=== PATIENT | female | born 1975 | race Caucasian/White ===

== ENCOUNTER 2017-11-28 08:04 | Day surgery (SDC) | payer OTHER, SELFPAY ==
[2017-11-14 13:02] VITALS: BMI 33.6
[2017-11-28] VITALS (9 sets, daily range): BP systolic 94–148; BP diastolic 2–91; PULSE 82–110; RESP 10–18; TEMP 36.2–37.2; O2SAT 94–99; BMI 33.6
[2017-11-28] MEDS: LACTATED RINGERS 1,000 ML 42 ML IV ×2 (08:49→11:13)
[2017-11-28] MEDS: MIDAZOLAM 2 MG/2 ML VIAL IV (09:22)
[2017-11-28] MEDS: fentaNYL 100 MCG/2 ML INJ 50 MCG IV (09:22)
[2017-11-28] MEDS: CEFAZOLIN VIAL 1 GM in SODIUM CHLORIDE 0.9% 100 ML 200 ML IV (09:35)
--- NOTE | 2017-11-28 09:37 | PM.PREOP ---
Pre-operative Note Interval Note Pre-op Check: Yes History & Physical Reviewed by Physician and Yes Exam Performed Changes: No
--- NOTE | 2017-11-28 09:38 | SUR.PREOP ---
Block start time []0925 . Monitoring initiated and maintained throughout procedure. Oxygen and medications given per anesthesiologist instructions. Patient remained stable throughout procedure, no adverse reactions noted. Block end time []0929 .
--- NOTE | 2017-11-28 09:46 | SUR.PREOP ---
100 mcg total given of fentanyl per verbal order dr. Gaston
--- NOTE | 2017-11-28 10:14 | SUR.OPER ---
Lateral on padded OR bed with french bag positioner, head on pillow, gel axillary roll in place, bottom leg bent with gel pad under knee to foot, upper leg straight and supported with pillows. Operative arm secured in shoulder positioning suspension device. non-operative arm secured on padded arm board. Safety belt at hip, tape over blanket securing lower legs.
[2017-11-28] MEDS: BUPIVACAINE 0.5% W/ EPI (PF) VIAL 30 ML INJ (10:30)
[2017-11-28] MEDS: SODIUM CHLORIDE IRRIG SOLUTION 6,000 ML, EPINEPHrine 2 MG IRR (10:34)
--- NOTE | 2017-11-28 11:05 | P.OP_ITS ---
Operative Date/Time/Diagnoses Date of procedure: 11/28/17 Time of procedure: 10:45 Pre-op diagnosis: 1. Right shoulder acromioclavicular osteoarthritis 2. Right shoulder impingement syndrome Post-op diagnosis: other (1. Right shoulder acromioclavicular osteoarthritis 2. Right shoulder partial-thickness rotator cuff tear) Procedure & Clinicians Procedure: 1. Right shoulder arthroscopic distal clavicle excision 2. Right shoulder arthroscopic subacromial decompression 3. Arthroscopic debridement of type 1 slap lesion and partial thickness rotator cuff tear of the supraspinatus Same procedure as scheduled: Yes Indications: Patient is a 42-year-old woman who has had right shoulder pain that has not fully responded to nonoperative measures. After discussion the risks benefits and alternatives she has requested shoulder arthroscopy. Risks discussed included but were not limited to: Failure to relieve pain, failure to improve function, stiffness, infection, nerve damage, deep venous thrombosis , pulmonary embolism, stroke, myocardial infarction, permanent paralysis and . Surgeon: Jasson Clifford Click Yes if Unassisted: Yes Anesthesia Type: General, Peripheral nerve block and Local Operative Notes Findings: 1. Normal glenohumeral cartilage 2. Fraying of the glenoid labrum in the superior aspect without loss of biceps integrity, consistent with a ?type 1 SLAP lesion?. 3. Intact glenohumeral ligaments but mild generalized laxity of the shoulder joint 4. Intact subscapularis 5. Intact biceps tendon 6. Fraying of the articular surface of the supraspinatus measuring less than 2 mm in depth. This was debrided. 7. Intact infraspinatus 8. Normal axillary pouch 9. Rotator cuff normal in appearance in the bursa 10. Type 2 acromion with impingement lesion 11. Osteoarthritic change of the acromioclavicular joint 12. Exam under anesthesia showing full range of motion and no evidence for significant pathologic laxity. Closure Type: primary Specimen(s): none sent Implants & Drains: None Estimated Blood Loss (mL): 10 Blood products transfused: none Tourniquet time (min): 0 Procedure in detail: Patient is seen in the preoperative area where she identified the right shoulder as the operative site was marked my initials. She underwent the induction of an interscalene block and received preoperative antibiotics. She was taken to the operating room and placed on the operating room table in a supine position where she underwent induction with general anesthetic. She was then repositioned in the left lateral decubitus position with an axillary roll and padding for all pressure points. The right arm was prepared from the fingertips to the base and neck with ChloraPrep in the usual fashion and draped through sterile drapes. The patient's arm was placed in 10 lb of balanced skin suspension and the subcutaneous landmarks outlined on the skin with a marking pen. Portal sites were selected. The posterior portal was created and the arthroscope inserted into the glenohumeral joint. Diagnostic arthroscopy ensued with result given above. An anterior portal was created for instrumentation and a shaver inserted to debride the type 1 SLAP lesion and the undersurface rotator cuff tear of the supraspinatus. The arthroscope was then withdrawn and placed in the subacromial bursa through the posterior portal and a lateral portal was created for instrumentation. A subacromial decompression was performed using the cutting block technique due to the impingement lesion. The distal 8-10 mm of clavicle was then excised due to the arthritis there. At this point all arthroscopic equipment was removed. The wounds were closed with 4 0 Monocryl and Steri-Strips. A total of 20 mL 0.5% Marcaine with epinephrine was injected in the subacromial tissues in the subacromial bursa for postoperative pain control. Dressing sterile 4x4s, an ABD and an adhesive dressing were applied. The patient was placed in a sling and taken to the recovery room in good condition and tolerated the procedure well. Complications: none Condition: stable Disposition: PACU Plan for aftercare: The patient will be discharged today. She will follow up in the office in 2 weeks. She will be maintained on a standard arthroscopic subacromial decompression protocol.
[2017-11-28] MEDS: METOCLOPRAMIDE 10 MG/2 ML INJ IV (11:20)
[2017-11-28] MEDS: ONDANSETRON 4 MG/2 ML INJ IV (11:20)
--- NOTE | 2017-11-28 11:26 | SUR.PHASEI ---
pt c/o nausea, medicated, symptoms resolved, taking ice chips well. no pain in r shoulder, c/o sore throat.
--- NOTE | 2017-11-28 11:40 | SUR.PHASEI ---
incontinent of urine, cleaned new sheets placed. to opd stable.
--- NOTE | 2017-11-28 12:03 | SUR.PHASEII ---
pt brought to opd, bed low, locked call hood in reach, did not want anything to eat, drinking water, filling prescriptions.
--- NOTE | 2017-11-28 12:07 | SUR.PHASEII ---
report to juan francisco altamirano.
--- NOTE | 2017-11-28 12:40 | SUR.PHASEII ---
pt reported scratchy throat, offered ice chips, pt declined. Pt c/o numb upper lip, denied difficulty breathing or throat swelling.
--- NOTE | 2017-11-28 12:47 | SUR.PHASEII ---
Dr. Gaston notified about patient's numb lip. Ok for patient to d/c.
== END 2017-11-28 12:47 | disposition home or self-care (01) ==
PROVIDERS: Family Provider Physician Assistant; PCP Physician Assistant; Visit Provider Orthopaedic Surgery
PROC: (CPT 29805; principal; 2017-11-28 09:45)
DX: M19.011 Primary osteoarthritis, right shoulder (principal); M75.41 Impingement syndrome of right shoulder; S43.431A Superior glenoid labrum lesion of right shoulder, initial encounter; W23.0XXA Caught, crushed, jammed, or pinched between moving objects, initial encounter; S46.011A Strain of muscle(s) and tendon(s) of the rotator cuff of right shoulder, initial encounter
CPT/HCPCS: 29823; 29824; 29826; 64450; J0171; J0330; J0690; J1100; J2250; J2405; J2704; J2765; J3010

== ENCOUNTER → 2018-03-24 10:16 | Outpatient (CLI) | payer OTHER, SELFPAY ==
--- NOTE | 2018-03-24 | DI.US.S_ITS ---
ULTRASOUND OF LEFT BREAST: 03/24/2018 CLINICAL: Patient returns today to evaluate a density in the left breast. Comparison is made to exams dated: 08/19/2017 ultrasound, 03/24/2018 mammogram, 08/19/2017 mammogram, and 08/04/2017 mammogram - [facility]. Color flow ultrasound of the left breast was performed on the areas of interest. Baptiste scale images of the real-time examination were reviewed. There is a benign lymph node in the left breast at 12 o'clock. This correlates as an incidental finding. IMPRESSION: PROBABLY BENIGN The lymph node in the left breast is benign. There is no abnormality seen in the left breast to correspond with the mammography finding in the upper outer quadrant. A follow-up mammogram in 6 months is recommended to demonstrate stability. This exam was interpreted at Station ID: [id number]. SUMMARY: This was discussed with the patient by the radiologist at the time of the exam. Electronically Signed By: Iveth keene/jaquelin:03/24/2018 12:19:13 letter sent: Followup Recommended Ultrasound BI-RADS: 3 Probably benign
--- NOTE | 2018-03-24 | DI.MG.S_ITS ---
UNILATERAL LEFT DIGITAL DIAGNOSTIC MAMMOGRAM 3D/2D: 03/24/2018 CLINICAL: Patient returns for a 6 month follow up of the left breast. Family history of breast cancer. Tugging sensation in left breast. Comparison is made to exams dated: 08/19/2017 mammogram and 08/04/2017 mammogram - [facility]. There are scattered fibroglandular elements in left breast. There is a focal asymmetry in the left breast at 1 o'clock posterior depth. No other significant masses or calcifications are seen in the breast. IMPRESSION: INCOMPLETE: NEEDS ADDITIONAL IMAGING EVALUATION The focal asymmetry in the left breast resembles a post-surgical scar and is indeterminate. An ultrasound is recommended. This exam was interpreted at Station ID: [id number]. NOTE: For mammograms, a report in lay terms will be sent to the patient. Approximately 15% of breast malignancies will not be visualized mammographically. In the management of a palpable breast mass, a negative mammogram must not discourage biopsy of a clinically suspicious lesion. Electronically Signed By: Iveth keene/jaquelin:03/24/2018 11:08:42 letter sent: Additional Imaging Needed ACR BI-RADS Category 0: Incomplete [id number]
== END ==
PROVIDERS: PCP Physician Assistant; Visit Provider Physician Assistant
DX: R92.8 Other abnormal and inconclusive findings on diagnostic imaging of breast (principal); Z80.3 Family history of malignant neoplasm of breast; N64.89 Other specified disorders of breast
CPT/HCPCS: 76642; 77065; G0279

== ENCOUNTER → 2018-06-27 15:13 | Outpatient (CLI) | payer OTHER, SELFPAY ==
[2018-06-27 15:47] LABS: Add Manual Diff / Slide Review NO; Basophils Absolute Auto 100 /uL (0-100); Basophils Percent Auto 1.2 % (0-2); Eosinophils Absolute Auto 200 /uL (0-450); Eosinophils Percent Auto 2.9 % (2-4); Hematocrit 44.1 % (36-46); Hemoglobin 15.4 g/dL (12.0-16.0); Lymphocytes Absolute Auto 1800 /uL (1100-4500); Lymphocytes Percent Auto 31.5 % (25-40); Mean Corpuscular Hemoglobin 30.3 PG (26-34); Mean Corpuscular Volume 86.7 fL (80-100); Monocytes Absolute Auto 500 /uL (0-900); Neutrophils Absolute Auto 3200 /uL (1500-7000); Neutrophils Percent Auto 56.4 % (50-75); Platelet Count 224 X10^3/uL (150-400); Red Blood Cell Count 5.09 X10^6/uL (4.0-5.2); Red Cell Distribution Width 13.2 % (11.6-14.8); White Blood Cell Count 5.7 X10^3/uL (4.5-11.0)
[2018-06-27 15:50] LABS: Alanine Aminotransferase 27 IU/L (9-52); Albumin 4.9 g/dL (3.5-5.0); Albumin Globulin Ratio 1.7 (1.0-2.8); Alkaline Phosphatase 44 U/L (38-126); Aspartate Aminotransferase 19 IU/L (14-36); Bilirubin Total 0.3 mg/dL (0.2-1.3); Blood Urea Nitrogen 12 mg/dL (7-17); Calcium 9.4 mg/dL (8.4-10.2); Carbon Dioxide 23 mmol/L (22-32); Chloride 104 mmol/L (98-107); Cholesterol 278 mg/dL (140-199); Estimated Glomerular Filt Rate > 60.0 mL/min (>60); Globulin 2.9 g/dL (1.7-4.1); Glucose 102 mg/dL (70-100); HDL Cholesterol 41 mg/dL (40-60); HEMOLYSIS 29 (0-50); LDL Cholesterol Calculated 185 mg/dL (<100); Potassium 4.2 mmol/L (3.4-5.1); Sodium 139 mmol/L (137-145); Total Protein 7.8 g/dL (6.3-8.2); Triglycerides 260 mg/dL (35-150)
[2018-06-27 16:06] LABS: Free T4, Direct Thyroxine 0.78 ng/dL (0.78-2.19)
== END ==
LOC: LAB 15:14
PROVIDERS: PCP Physician Assistant; Visit Provider Physician Assistant
DX: I10 Essential (primary) hypertension (principal); E78.5 Hyperlipidemia, unspecified; R00.2 Palpitations
CPT/HCPCS: 36415; 80053; 80061; 84439; 84443; 85025

== ENCOUNTER → 2018-12-18 12:28 | Outpatient (CLI) | payer OTHER, SELFPAY ==
--- NOTE | 2018-12-18 | DI.MG.S_ITS ---
BILATERAL DIGITAL DIAGNOSTIC MAMMOGRAM 3D/2D SHORT-TERM FOLLOW-UP: 12/18/2018 CLINICAL: Patient returns for a 6 month follow up of the left breast. Due for bilateral imaging. Comparison is made to exams dated: 03/24/2018 mammogram, 08/19/2017 mammogram, and 08/04/2017 mammogram - [facility]. There are scattered fibroglandular elements in both breasts. There is an oval equal density focal asymmetry with an indistinct margin in the left breast at 1 o'clock posterior depth. This is not significantly changed. No other significant masses, calcifications, or other findings are seen in either breast. IMPRESSION: PROBABLY BENIGN The oval equal density focal asymmetry in the left breast is probably benign. A follow-up mammogram in 12 months is recommended. This exam was interpreted at Station ID: [id number]. NOTE: For mammograms, a report in lay terms will be sent to the patient. Approximately 15% of breast malignancies will not be visualized mammographically. In the management of a palpable breast mass, a negative mammogram must not discourage biopsy of a clinically suspicious lesion. Electronically Signed By: Jack hernandez/jaquelin:12/20/2018 07:32:08 letter sent: Followup Recommended ACR BI-RADS Category 3: Probably benign [id number]
--- NOTE | 2018-12-18 | DI.US.S_ITS ---
PROCEDURE: US PELVIC COMPLETE INDICATIONS: 6 MONTH FOLLOW UP POLYCYSTIC OVARIAN SYNDROME TECHNIQUE: Real-time scanning was performed of the pelvic organs, with image documentation. Additional endovaginal scanning was necessary due to incomplete visualization of the adnexal and endometrial structures by transabdominal scanning. COMPARISON: [facility], US, PELVIC COMPLETE, 11/13/2014, 11:21. FINDINGS: Transabdominal scanning: Limited scanning through the kidneys shows no hydronephrosis. No pathologic free abdominal or pelvic fluid. Endovaginal scanning: Uterus: Uterus is normal in size at 8.2 x 4.0 x 4.9 cm. The endometrium measures 4.2 mm in combined thickness. The myometrium is mildly heterogeneous. No definitive fibroids seen. Ovaries: Ovaries are normal in size measuring 3.9 x 2.3 x 2.0 cm on the right and 4.2 x 2.3 x 2.4 cm on the left. Bilateral simple, unilocular cyst present measuring up to 1.7 cm on the right and 2.1 cm and the left. IMPRESSION: Small bilateral simple ovarian cysts. Dictated by: Arias Lorenzana [facility] Interpreted: King Barakat MD on 12/18/2018 at 14:23 Approved by: King Barakat M.D. on 12/18/2018 at 17:21
[2018-12-18 15:57] LABS: Add Manual Diff / Slide Review NO; Basophils Absolute Auto 0 /uL (0-100); Basophils Percent Auto 0.3 % (0-2); Eosinophils Absolute Auto 200 /uL (0-450); Eosinophils Percent Auto 2.1 % (2-4); Hematocrit 42.8 % (36-46); Hemoglobin 15.2 g/dL (12.0-16.0); Lymphocytes Absolute Auto 1900 /uL (1100-4500); Lymphocytes Percent Auto 26.2 % (25-40); Mean Corpuscular HGB Conc 35.5 % (30-36); Mean Corpuscular Hemoglobin 30.7 PG (26-34); Mean Corpuscular Volume 86.4 fL (80-100); Monocytes Absolute Auto 500 /uL (0-900); Monocytes Percent Auto 6.5 % (3-14); Neutrophils Absolute Auto 4700 /uL (1500-7000); Neutrophils Percent Auto 64.9 % (50-75); Platelet Count 250 X10^3/uL (150-400); Red Blood Cell Count 4.96 X10^6/uL (4.0-5.2); Red Cell Distribution Width 13.1 % (11.6-14.8); White Blood Cell Count 7.3 X10^3/uL (4.5-11.0)
[2018-12-18 16:00] LABS: Hemoglobin A1C% w Est Avg Glu 4.8 % (4.0-6.0)
[2018-12-18 16:08] LABS: HEMOLYSIS < 15 (0-50); Iron 111 ug/dL (37-170)
[2018-12-18 16:09] LABS: Glucose 1 Hour 219 mg/dL (70-170)
[2018-12-18 16:19] LABS: Percent Iron Saturation 29 % (15-50); Total Iron Binding Capacity 384 ug/dL (265-497); Transferrin 311 mg/dL (206-381)
[2018-12-18 16:27] LABS: Prolactin 28.4 ng/mL (3.0-18.6)
[2018-12-18 16:28] LABS: Free T4, Direct Thyroxine 0.78 ng/dL (0.78-2.19)
[2018-12-18 16:39] LABS: Glucose Tol Interpretation INTERPRETATION
[2018-12-18 16:41] LABS: Thyroid Stimulating Hormone 1.84 uIU/mL (0.47-4.68)
[2018-12-18 16:43] LABS: Testosterone 28.8 ng/dL (5.71-77.0)
[2018-12-18 16:55] LABS: Follicle Stimulating Hormone 3.99 mIU/mL
[2018-12-18 17:34] LABS: Glucose 2 Hour 124 mg/dL (70-140)
[2018-12-18 18:37] LABS: Glucose Fasting 71 mg/dL (70-100)
== END ==
PROVIDERS: Family Provider Obstetrics & Gynecology; PCP Physician Assistant; Visit Provider Physician Assistant
DX: R10.30 Lower abdominal pain, unspecified (principal); N92.0 Excessive and frequent menstruation with regular cycle; R92.2 Inconclusive mammogram; Z80.3 Family history of malignant neoplasm of breast; Z84.81 Family history of carrier of genetic disease; N83.292 Other ovarian cyst, left side; N83.291 Other ovarian cyst, right side
CPT/HCPCS: 36415; 76830; 76856; 77066; 82951; 82952; 83001; 83036; 83540; 83550; 84146; 84403; 84439; 84443; 85025; G0279

== ENCOUNTER → 2018-12-22 12:55 | Outpatient (CLI) | payer OTHER, SELFPAY ==
--- NOTE | 2018-12-22 | DI.RAD.S_ITS ---
PROCEDURE: XR ABDOMEN 1V INDICATIONS: Pelvic and perineal pain TECHNIQUE: One view of the abdomen acquired. COMPARISON: None. FINDINGS: Surgical changes and devices: None. Bowel: Bowel gas pattern is normal. Mild stool. Soft tissues: No suspicious abdominal calcifications. Visualized solid organ contours appear normal in size. Incidental IUD. Bones: No suspicious bony lesions. Mild bilateral hip degeneration. Lower lumbar spondylosis and facet disease. IMPRESSION: No acute process. Additional chronic and incidental findings as above. Dictated by: King Barakat M.D. on 12/22/2018 at 17:01 Approved by: King Barakat M.D. on 12/22/2018 at 17:02
--- NOTE | 2018-12-22 | DI.RAD.S_ITS ---
PROCEDURE: XR PELVIS 1-2V INDICATIONS: Pelvic and perineal pain TECHNIQUE: Single view(s) of the pelvis acquired. COMPARISON: [facility], , PELVIS 1 OR 2 VIEWS, 01/02/2013, 11:54. FINDINGS: Bones: No fractures or dislocations. No suspicious bony lesions. Mild bilateral hip joint degeneration. Soft tissues: Visualized bowel gas pattern is normal. Incidentally noted IUD. Bilateral pelvic phleboliths. No suspicious soft tissue calcifications. IMPRESSION: No fracture. Chronic and degenerative changes as above. Dictated by: King Barakat M.D. on 12/22/2018 at 17:02 Approved by: King Barakat M.D. on 12/22/2018 at 17:03
== END ==
LOC: RAD 12:57
PROVIDERS: Family Provider Obstetrics & Gynecology; PCP Physician Assistant; Visit Provider Obstetrics & Gynecology
DX: R10.2 Pelvic and perineal pain (principal)
CPT/HCPCS: 72170; 74018

== ENCOUNTER → 2019-04-10 12:01 | Outpatient (CLI) | payer SELFPAY ==
--- NOTE | 2019-04-10 | DI.US.S_ITS ---
PROCEDURE: US ABDOMEN LIMITED INDICATIONS: RUQ PAIN TECHNIQUE: Real-time focused scanning was performed of the abdomen, with image documentation. COMPARISON: [facility], US, PELVIC COMPLETE, 11/13/2014, 11:21. FINDINGS: Liver is diffusely increased in echogenicity. No focal hepatic abnormalities identified. Normal hepatic size. No gallstones identified. Normal gallbladder wall. No pericholecystic fluid. Negative sonographic Spicer sign. No biliary dilatation. IMPRESSION: 1. Increased hepatic echogenicity noted possibly related to hepatic steatosis but other sources of hepatocellular disease cannot be excluded. Recommend clinical correlation. 2. No source for right upper quadrant pain identified. Dictated by: Arias HANKINS Interpreted: Stephanie Jacobs MD on 04/10/2019 at 14:37 Approved by: Stephanie Jacobs M.D. on 04/10/2019 at 15:47
[2019-04-10 12:59] LABS: Add Manual Diff / Slide Review NO; Basophils Absolute Auto 0 /uL (0-100); Basophils Percent Auto 0.6 % (0-2); Eosinophils Absolute Auto 100 /uL (0-450); Eosinophils Percent Auto 2.3 % (2-4); Hematocrit 41.8 % (36-46); Hemoglobin 14.7 g/dL (12.0-16.0); Lymphocytes Absolute Auto 1900 /uL (1100-4500); Mean Corpuscular HGB Conc 35.2 % (30-36); Mean Corpuscular Hemoglobin 30.2 PG (26-34); Monocytes Absolute Auto 500 /uL (0-900); Monocytes Percent Auto 7.9 % (3-14); Neutrophils Absolute Auto 3500 /uL (1500-7000); Neutrophils Percent Auto 58.2 % (50-75); Platelet Count 228 X10^3/uL (150-400); Red Blood Cell Count 4.86 X10^6/uL (4.0-5.2); Red Cell Distribution Width 13.3 % (11.6-14.8); White Blood Cell Count 6.1 X10^3/uL (4.5-11.0)
[2019-04-10 13:00] LABS: HEMOLYSIS < 15 (0-50)
[2019-04-10 13:06] LABS: Alanine Aminotransferase 23 IU/L (<35); Albumin 4.5 g/dL (3.5-5.0); Albumin Globulin Ratio 1.6 (1.0-2.8); Alkaline Phosphatase 47 U/L (38-126); Amylase 69 U/L (30-110); Aspartate Aminotransferase 21 IU/L (14-36); BUN Creatinine Ratio 16.7 (6-22); Bilirubin Total 0.4 mg/dL (0.2-1.3); Blood Urea Nitrogen 10 mg/dL (7-17); Calcium 9.2 mg/dL (8.4-10.2); Carbon Dioxide 26 mmol/L (22-32); Chloride 105 mmol/L (98-107); Estimated Glomerular Filt Rate > 60.0 mL/min (>60); Globulin 2.9 g/dL (1.7-4.1); Glucose 99 mg/dL (70-100); Lipase 71 U/L (23-300); Potassium 4.4 mmol/L (3.4-5.1); Sodium 139 mmol/L (137-145); Total Protein 7.4 g/dL (6.3-8.2)
[2019-04-10 13:38] LABS: Cancer Antigen 125 6 U/mL (0-35)
== END ==
PROVIDERS: Family Provider Obstetrics & Gynecology; PCP Physician Assistant; Visit Provider Physician Assistant
DX: R10.11 Right upper quadrant pain (principal); R39.9 Unspecified symptoms and signs involving the genitourinary system; R11.0 Nausea; R14.0 Abdominal distension (gaseous)
CPT/HCPCS: 36415; 76705; 80053; 82150; 83690; 85025; 86304; 87086

== ENCOUNTER 2019-09-09 13:44 | Emergency (ER) | payer OTHER, SELFPAY ==
[2019-09-09 13:54] VITALS: BP 201/101; PULSE 125; RESP 16; TEMP 36.8; O2SAT 97; BMI 34.9
--- NOTE | 2019-09-09 14:21 | DI.RAD.S_ITS ---
PROCEDURE: XR CLAVICLE LT INDICATIONS: R clavicle pain TECHNIQUE: 2 views of the clavicle were acquired. COMPARISON: [facility], CR, XR SHOULDER LT MIN 2V, 09/09/2019, 14:23. FINDINGS: Bones: No fractures or dislocations. No suspicious bony lesions. Soft tissues: No suspicious soft tissue calcifications. Calcific tendinitis is noted. IMPRESSION: No visualized acute fracture or dislocation. However, if clinical concern and/or pain persist, short interval imaging followup in 7-10 days is recommended, as occult injury cannot be definitively excluded. Dictated by: Stephanie Jacobs M.D. on 09/09/2019 at 14:41 Approved by: Stephanie Jacobs M.D. on 09/09/2019 at 14:41
--- NOTE | 2019-09-09 14:24 | ED.FALL ---
HPI - Fall <Diane AdamesSUNSHINE - Last Filed: 09/09/19 22:05> General Chief Complaint: Fall Stated Complaint: fell 2wks ago/left arm/neck pain today Time Seen by Provider: 09/09/19 13:59 History of Present Illness HPI Narrative: 43-year-old female with a history of multiple pinched nerves back and cerebrovascular construction, presents emergency department complaining of left shoulder tightness, spasms, and pain that extends into her neck. She states 2 week ago she slipped and fell landing on the back side of her upper back and shoulder. She states the pain was resolving but then returned the past few days. She states it feels like her muscles are tight, patient reports the pain is worse with movement of her shoulder in states it is painful to rotate her head to the left due to the muscle tension ?. Patient reports the pain occasionally radiates down her arm. She states the pain ?feel sharp like a pinched nerve ?. Patient took a Vicodin this morning. She states she occasionally feels nauseated and vomits with extensive movement or or palpation of the area due to pain. Patient has not seen anyone for this at this time. She denies any abdominal pain, fevers, chills, cough, chest pain, dizziness, headaches, vision changes, diarrhea, or any other concerns. Related Data Home Medications Medication Instructions Recorded Confirmed hydrocodone-acetaminophen [Vicodin] 1 tab PO Q4HP PRN #0 01/18/16 11/28/17 atorvastatin [Lipitor] 20 mg PO QDAY #0 02/04/16 11/28/17 epinephrine [EpiPen] 0.3 mg IM PRN PRN 11/14/17 11/14/17 fluoxetine 40 mg PO DAILY 11/14/17 11/28/17 verapamil 180 mg PO BEDTIME 11/14/17 11/28/17 Previous Rx's Medication Instructions Recorded hydroxyzine pamoate 25 mg PO Q4HR PRN #40 cap 11/28/17 oxycodone 5 mg PO Q3HR PRN #40 tab 11/28/17 cyclobenzaprine 10 mg PO TID PRN #20 tab 09/09/19 Allergies Allergy/AdvReac Type Severity Reaction Status Date / Time amoxicillin [AMOXICILLIN] Allergy Severe HIVES Verified 11/28/17 11:06 NSAIDS (Non-Steroidal Allergy Severe cerebral Verified 11/14/17 13:25 Anti-Inflamma vasoconstrictive syndrome rizatriptan [From Maxalt] Allergy Severe cerebral Verified 11/14/17 13:25 vasoconstrive syndrome Sulfa (Sulfonamide Allergy Severe HIVES Verified 11/28/17 11:06 Antibiotics) [SULFA (SULFONAMIDE ANTIBIOTICS)] tree nut Allergy Severe Anaphylaxis Verified 11/14/17 13:25 walnut Allergy Severe Anaphylaxis Verified 11/14/17 13:25 hydromorphone [From Dilaudid] AdvReac Severe Vomiting Verified 11/14/17 13:25 Review of Systems <SUNSHINE Morales - Last Filed: 09/09/19 22:05> Review of Systems Narrative: REVIEW OF SYSTEMS: GENERAL: Denies fever or chills. HENT: No head trauma. EYES: No double vision or vision loss. CARDIOVASCULAR: No chest pain. RESPIRATORY: No cough. GASTROINTESTINAL: No nausea, vomiting, diarrhea, or constipation. MUSCULOSKELETAL: Complains of left-sided neck pain, see HPI. INTEGUMENTARY: No rash, lesions, or pruritus. NEURO: No numbness, tingling. PSYCH: No behavior or mood changes. Patient History <SUNSHINE Morales - Last Filed: 09/09/19 22:05> Medical History Anisocoria (Acute) Chronic thoracic spine pain (Acute) Depression (Acute) Hirsutism (Acute) Migraine with aura (Acute) MRSA (methicillin resistant Staphylococcus aureus) (Acute) Numbness of right hand (Acute) Osteoarthritis (Acute) PCOS (polycystic ovarian syndrome) (Acute) Reversible cerebrovascular vasoconstriction syndrome (Acute) Right shoulder pain (Acute) Surgical History Status post breast reduction Status post knee surgery Social History household members: spouse and children Smoking Status: Unknown if ever smoked Smoking Status: Unknown if ever smoked Substance Use Type: does not use Exam <SUNSHINE Morales - Last Filed: 09/09/19 22:05> Initial Vital Signs Initial Vital Signs: Vital Signs Temperature 98.3 F 09/09/19 13:54 Pulse Rate 125 H 09/09/19 13:54 Respiratory Rate 16 09/09/19 13:54 Blood Pressure 201/101 H 09/09/19 13:54 Pulse Oximetry 97 09/09/19 13:54 PHYSICAL EXAMINATION: GENERAL: Well groomed, alert, and cooperative. Answers questions promptly and appropriately. Vital signs noted. HENT: Normocephalic, atraumatic. EYES: Symmetrical, sclera white, no periorbital swelling. CARDIOVASCULAR: S1 and S2 sounds normal. Regular rate and rhythm, no murmurs, clicks, or bruits. No pedal edema. RESPIRATORY: Normal respiratory rate, trachea midline, airway patent. No stridor, nasal flaring or accessory muscle use. Lungs are clear in all mello. MUSCULOSKELETAL: Tenderness to palpation of sternocleidomastoid approximately the middle of muscle, significant tenderness to left-sided trapezius muscle, no tenderness to shoulder joint. Some spur final vertebral tenderness to left side of cervical spine. Patient has limited leftward rotation due to neck stiffness and pain. Upper arm, title checker, and shoulder strength equal but laterally. EXTREMITIES: CMS intact. No pedal edema. SKIN: Warm, dry, soft, appropriate color for ethnicity. No lesions, rashes, or wounds. NEURO: Alert and Oriented X 3. No sensory deficits. PSYCH: Appropriate affect and mood. <Leonardo Rodríguez MD - Last Filed: 09/10/19 19:34> Initial Vital Signs Initial Vital Signs: Vital Signs Temperature 98.3 F 09/09/19 13:54 Pulse Rate 125 H 09/09/19 13:54 Respiratory Rate 16 09/09/19 13:54 Blood Pressure 201/101 H 09/09/19 13:54 Pulse Oximetry 97 09/09/19 13:54 Course <SUNSHINE Morales - Last Filed: 09/09/19 22:05> Course Course Narrative: 1526: Patient re-evaluated, continues to complain of significant pain. Discussed cervical spine imaging due to fall. Patient was agreeable. Patient reported some improved pain after application of lidocaine patch. Orders Ordered: Discontinued Medications Diazepam (Valium) 5 mg PO NOW ONE Stop: 09/09/19 14:22 Last Admin: 09/09/19 14:51 Dose: 5 mg Documented by: ERICK Diazepam (Valium) 5 mg PO NOW ONE Stop: 09/09/19 15:21 Last Admin: 09/09/19 15:34 Dose: 5 mg Documented by: SCANAPO Lidocaine (Lidoderm) 1 each TOP NOW ONE Stop: 09/09/19 16:00 Last Admin: 09/09/19 16:03 Dose: 1 each Documented by: SCANAPO Consultations Consultation #1: Patient staffed with Dr. Rodríguez discussed patient's symptoms, mechanism of injury, tests, and test results. Discussed need for CT cervical imaging due to mechanism of injury and fall. Vital Signs Vital signs: Vital Signs - 8 hr 09/09/19 15:36 Pulse Rate 97 H Respiratory Rate 16 Blood Pressure [Right Arm] 156/97 H Pulse Oximetry 100 <Leonardo Rodríguez MD - Last Filed: 09/10/19 19:34> Orders Ordered: Discontinued Medications Diazepam (Valium) 5 mg PO NOW ONE Stop: 09/09/19 14:22 Last Admin: 09/09/19 14:51 Dose: 5 mg Documented by: IBISAPO Diazepam (Valium) 5 mg PO NOW ONE Stop: 09/09/19 15:21 Last Admin: 09/09/19 15:34 Dose: 5 mg Documented by: SCANAPO Lidocaine (Lidoderm) 1 each TOP NOW ONE Stop: 09/09/19 16:00 Last Admin: 09/09/19 16:03 Dose: 1 each Documented by: ERICK Vital Signs Vital signs: Vital Signs - 8 hr 09/09/19 15:36 Pulse Rate 97 H Respiratory Rate 16 Blood Pressure [Right Arm] 156/97 H Pulse Oximetry 100 MDM - Fall <SUNSHINE Morales - Last Filed: 09/09/19 22:05> Medical Records Attestation: I reviewed the patient's medical records. Lab Data Attestation: I reviewed the patient's lab results. Imaging Data Extremity x-ray #1: Radiologist's Impression: [address] [place] [id number] XRay Report Signed Patient: Nelson Spicer [facility]#: [id number] : 1975Acct:[id number] Age/Sex: 43 / FDate of Service: 09/09/19 Loc: ED Accession Number: [id number] Procedure: XR shoulder LT min 2V Ordering Provider: Diane Adames PROCEDURE: XR SHOULDER LT MIN 2V INDICATIONS: FAll, pain TECHNIQUE: 2 views of the shoulder were acquired. COMPARISON: [facility], XR CLAVICLE LT, 09/09/2019, 14:23. [facility], SHOULDER MINIMUM 2VIEW RIGHT, 08/29/2017, 10:18. FINDINGS: Bones: No fractures or dislocations. No suspicious bony lesions. Visualized ribs appear intact. Soft tissues: No suspicious soft tissue calcifications. Calcific tendinitis. IMPRESSION: No visualized acute fracture or dislocation. However, if clinical concern and/or pain persist, short interval imaging followup in 7-10 days is recommended, as occult injury cannot be definitively excluded. Dictated by: Stephanie Jacobs M.D. on 09/09/2019 at 14:41 Approved by: Stephanie Jacobs M.D. on 09/09/2019 at 14:42 Extremity x-ray #2: Radiologist's Impression: [address] [address] XRay Report Signed Patient: Nelson Spicer [facility]#: [id number] : 1975Acct:[id number] Age/Sex: 43 / FDate of Service: 09/09/19 Loc: ED Accession Number: [id number] Procedure: XR clavicle LT Ordering Provider: Diane Adames PROCEDURE: XR CLAVICLE LT INDICATIONS: R clavicle pain TECHNIQUE: 2 views of the clavicle were acquired. COMPARISON: [facility], , XR SHOULDER LT MIN 2V, 09/09/2019, 14:23. FINDINGS: Bones: No fractures or dislocations. No suspicious bony lesions. Soft tissues: No suspicious soft tissue calcifications. Calcific tendinitis is noted. IMPRESSION: No visualized acute fracture or dislocation. However, if clinical concern and/or pain persist, short interval imaging followup in 7-10 days is recommended, as occult injury cannot be definitively excluded. Dictated by: Stephanie Jacobs M.D. on 09/09/2019 at 14:41 Approved by: Stephanie Jacobs M.D. on 09/09/2019 at 14:[address]: Radiologist's Impression: [address] [address] [address] Scan Report Signed Patient: Bob Spicerveronica [facility]#: [id number] : 1975Acct:[id number] Age/Sex: 43 / FDate of Service: 09/09/19 Loc: ED Accession Number: [id number] Procedure: CT cervical spine wo con Ordering Provider: Diane Adames PROCEDURE: CT CERVICAL SPINE WO CON INDICATIONS: Neck pain post fall TECHNIQUE: Noncontrast 3 mm thick sections acquired from the skull base to the T4 level. Sagittal and coronal reformats were then constructed. For radiation dose reduction, the following was used: automated exposure control, adjustment of mA and/or kV according to patient size. COMPARISON: [facility], CT, HEAD WITHOUT CONTRAST, 07/05/2014, 12:48. [facility], CR, XR CLAVICLE LT, 09/09/2019, 14:23. [facility], CR, XR SHOULDER LT MIN 2V, 09/09/2019, 14:23. FINDINGS: Image quality: Excellent. Bones: No fractures or dislocations. Visualized superior ribs are intact. Mild to moderate generalized degenerative changes are seen. Soft tissues: Prevertebral soft tissues are normal in thickness. No paravertebral hematomas. No apical pneumothoraces. IMPRESSION: Negative for fracture. Dictated by: Pierre Bingham M.D. on 09/09/2019 at 15:02 Approved by: Pierre Bingham M.D. on 09/09/2019 at 15:04 [facility] Narrative Medical decision making narrative: 43-year-old female with a history of back and neck pain in the past, presents emergency department complaining of worsening left-sided pain after fall. I suspect patient's pain is most likely due to neck strain and spasm due to nature of pain, location of pain, and characteristic of pain. Less likely fracture due to lack of bony tenderness, cervical spine CT, clavicle and shoulder x-ray negative. Is possible that muscle spasms may also be contributing to patient's pain. Patient did report some improved pain after administration of lidocaine which is reassuring. Patient had slight decrease in pain after administration of Valium. Initial diagnosis include pinched nerve verses DDD. Less likely spinal compromise due to lack of neurological symptoms such as arm weakness or numbness or tingling. Less likely infection due to lack of other symptoms such as fever, tachycardia, recent illness. Patient was encouraged to follow up with her primary care provider to discuss further testing in interventions such as physical therapy. She agreed to plan of care verbalized understanding. Return precautions given. Discharge Plan Departure Patient Disposition: Home Clinical Impression: Neck pain, Muscle spasms of neck Discharge Date/Time: 09/09/19 17:01 Instructions: DI for Neck Pain Activity Restrictions/Additional Instructions: Thank you for entrusting me with your care today. As discussed, your CT and x-rays are negative for any fractures. I suspect your symptoms are most likely caused by a muscle strain and spasm. I suggest performing gentle stretches, massage, hot showers, lidocaine patches, and alternating placing ice over the area. I prescribed you a muscle relaxer, these medications can make you drowsy so do not drive when you take these. Please follow up with your primary care provider as soon as possible to discuss possible physical therapy and/or further treatment if indicated. I have placed the name of the Orthopedics office below, sometimes a referral from a primary care provider is needed in order to seen orthopedic. However, symptoms your insurance does not require this. Try calling [facility] at [phone] for an appointment. Return emergency department for any new or worsening symptoms such as chest pain, fevers, shortness of breath, vision changes, severe headaches, or any other concerns. Prescriptions: New cyclobenzaprine 10 mg tablet 10 mg PO TID PRN (Reason: muscle spasm) Qty: 20 RF: 0 No Action hydrocodone-acetaminophen [Vicodin] 5 MG/300 MG tablet 1 tab PO Q4HP PRN (Reason: PAIN) Qty: 0 RF: 0 atorvastatin [Lipitor] 20 MG tablet 20 mg PO QDAY Qty: 0 RF: 0 fluoxetine 40 mg Capsule 40 mg PO DAILY RF: 0 verapamil 180 mg Capsule,Ext Rel. Pellets 24 Hr 180 mg PO BEDTIME RF: 0 epinephrine [EpiPen] 0.3 mg/0.3 mL Auto-Injector 0.3 mg IM PRN PRN (Reason: Anaphylaxis) RF: 0 oxycodone 5 mg Tablet 5 mg PO Q3HR PRN (Reason: Pain, Moderate) Qty: 40 RF: 0 hydroxyzine pamoate 25 mg Capsule 25 mg PO Q4HR PRN (Reason: Muscle Spasm) Qty: 40 RF: 0 Referrals: Stephanie Truong PA-C [Primary Care Provider] -
[2019-09-09] MEDS: diazePAM 5 MG TABLET PO ×2 (14:51→15:34)
--- NOTE | 2019-09-09 15:20 | DI.CT.S_ITS ---
PROCEDURE: CT CERVICAL SPINE WO CON INDICATIONS: Neck pain post fall TECHNIQUE: Noncontrast 3 mm thick sections acquired from the skull base to the T4 level. Sagittal and coronal reformats were then constructed. For radiation dose reduction, the following was used: automated exposure control, adjustment of mA and/or kV according to patient size. COMPARISON: [facility], CT, HEAD WITHOUT CONTRAST, 07/05/2014, 12:48. [facility], CR, XR CLAVICLE LT, 09/09/2019, 14:23. [facility], CR, XR SHOULDER LT MIN 2V, 09/09/2019, 14:23. FINDINGS: Image quality: Excellent. Bones: No fractures or dislocations. Visualized superior ribs are intact. Mild to moderate generalized degenerative changes are seen. Soft tissues: Prevertebral soft tissues are normal in thickness. No paravertebral hematomas. No apical pneumothoraces. IMPRESSION: Negative for fracture. Dictated by: Pierre Bingham M.D. on 09/09/2019 at 15:02 Approved by: Pierre Bingham M.D. on 09/09/2019 at 15:04
[2019-09-09 15:36] VITALS: BP 156/97; PULSE 97; RESP 16; O2SAT 100
[2019-09-09] MEDS: LIDOCAINE PATCH 1 EACH ADH..PATCH TOP (16:03)
== END 2019-09-09 17:01 | disposition home or self-care (01) ==
PROVIDERS: Emergency Provider Nurse Practitioner; Family Provider Obstetrics & Gynecology; PCP Physician Assistant
DX: M54.2 Cervicalgia (principal); M62.838 Other muscle spasm; M25.512 Pain in left shoulder; W19.XXXA Unspecified fall, initial encounter
CPT/HCPCS: 72125; 73000; 73030; 99283; 99284

== ENCOUNTER 2019-09-11 10:24 | Emergency (ER) | payer OTHER, SELFPAY ==
[2019-09-11 10:32] VITALS: BP 195/98; PULSE 118; RESP 13; TEMP 36.6; O2SAT 98
--- NOTE | 2019-09-11 11:42 | DI.MRI.S_ITS ---
PROCEDURE: MR CERVICAL SPINE WO CON INDICATIONS: L arm weakness, numbness, tingling, TECHNIQUE: Noncontrast sagittal T1 spin echo and T2 fast spin echo, sagittal STIR, foraminal oblique sagittal T2 fast spin echo, and axial gradient echo or T2 fast spin echo through the cervical spine. COMPARISON: None. FINDINGS: Image quality: This examination is limited by involuntary motion artifact. Alignment and Curvature: There is straightening of the normal cervical lordosis. No focal AP alignment abnormality is seen. Bone Marrow: Marrow demonstrates normal overall signal. Spinal Cord: Visualized spinal cord has normal size and signal. No cerebellar tonsillar herniation. Paraspinous Soft Tissues: No paravertebral masses. Prevertebral soft tissues are normal in thickness. No jeimy findings of ligamentous abnormality can be seen. C2-C3: The disc height and disc signal are relatively well-preserved. A mild degree of generalized disc osteophyte complex is seen. There is moderate right-sided and mild left-sided facet hypertrophy seen. There is moderate right-sided and minimal left-sided neural foraminal narrowing seen. Mild to moderate central canal narrowing is seen. C3-C4: The disc height is well-preserved. Loss of disc signal is seen at this level. Moderate generalized disc osteophyte complex is seen. Mild to moderate facet hypertrophy is seen. There is moderate to severe right-sided and at least moderate left-sided neural foraminal narrowing seen. Moderate central canal narrowing is seen. There is associated mass effect upon the ventral spinal cord. C4-C5: The disc height is well-preserved. Loss of disc signal is seen at this level. Moderate disc osteophyte complex is seen, with a4 left lateral recess disc osteophyte protrusion, as on series or image 24. Moderate facet joint hypertrophy is seen. Moderate to severe bilateral neural foraminal narrowing can be seen. Moderate to severe central canal narrowing is seen, with associated mass effect upon the ventral spinal cord. C5-C6: Mild loss of disc height is seen. Loss of disc signal is seen. Moderate disc osteophyte complex is seen, which is eccentric to the left. There is at least moderate facet hypertrophy seen. There is moderate to severe bilateral neural foraminal narrowing seen. Moderate to severe central canal narrowing is seen. There is associated mass effect upon the ventral spinal cord. C6-C7: The disc height is well-preserved. Loss of disc signal is seen at this level. At least moderate disc osteophyte complex is seen, which is eccentric to the right. Mild to moderate facet hypertrophy is seen. There is moderate to severe bilateral neural foraminal narrowing seen, right worse than left. Moderate central canal narrowing is seen. There is associated mass effect upon the ventral spinal cord. C7-T1: The disc height is well-preserved. Loss of disc signal is seen at this level. Mild to moderate disc osteophyte complex is seen. Mild facet joint hypertrophy is seen. At least moderate neural foraminal narrowing can be seen. Moderate central canal narrowing is seen. There is associated mass effect upon the ventral spinal cord. IMPRESSION: Multiple levels of cervical spine degenerative change are seen, which are more prominent than would be expected for a patient of this age. At the C4-C5 level, there is a left lateral recess disc osteophyte protrusion seen, with associated mass effect. Straightening of the normal cervical lordosis is seen, which is commonly observed in patients with muscular spasm. Dictated by: Pierre Bingham M.D. on 09/11/2019 at 11:47 Approved by: Pierre Bingham M.D. on 09/11/2019 at 11:52
--- NOTE | 2019-09-11 12:31 | ED.UPPEXIN ---
HPI - Extremity Injury (Upper) <Diane AdamesSUNSHINE - Last Filed: 09/11/19 21:44> General Chief Complaint: Extremity Injury, Upper Stated Complaint: LT ARM UNABLE TO USE PER PHYS Time Seen by Provider: 09/11/19 11:10 Source: patient Mode of arrival: Ambulatory History of Present Illness HPI narrative: 43 year old female presenting to the emergency department for left-sided neck pain after a fall. She was seen by myself on 09/09/2019 and instructed to follow up with her primary care provider. Patient reports yesterday she developed left arm weakness. She reports her PCP was sent her for re-evaluation and possible MRI. Patient states she fell 2 weeks ago and landed on her left upper back and shoulder. Previous x-rays in cervical CT were negative for any fractures. Patient states she has been taking Vicodin, using warm compresses, and lidocaine patches. Patient states she has pain when she moves her shoulder. She states she is able to move her wrist, able to make a fist but not clench it completely, she can move her shoulder forward slightly but reports she is unable to raise her arm. Patient states she ?I have to take my other arm and to physically movement left arm. Related Data Home Medications Medication Instructions Recorded Confirmed hydrocodone-acetaminophen [Vicodin] 1 tab PO Q4HP PRN #0 01/18/16 11/28/17 atorvastatin [Lipitor] 20 mg PO QDAY #0 02/04/16 11/28/17 epinephrine [EpiPen] 0.3 mg IM PRN PRN 11/14/17 11/14/17 fluoxetine 40 mg PO DAILY 11/14/17 11/28/17 verapamil 180 mg PO BEDTIME 11/14/17 11/28/17 Previous Rx's Medication Instructions Recorded hydroxyzine pamoate 25 mg PO Q4HR PRN #40 cap 11/28/17 oxycodone 5 mg PO Q3HR PRN #40 tab 11/28/17 cyclobenzaprine 10 mg PO TID PRN #20 tab 09/09/19 oxycodone-acetaminophen [Percocet] 1 tab PO Q4-6H PRN #10 tab 09/11/19 Allergies Allergy/AdvReac Type Severity Reaction Status Date / Time amoxicillin [AMOXICILLIN] Allergy Severe HIVES Verified 11/28/17 11:06 NSAIDS (Non-Steroidal Allergy Severe cerebral Verified 11/14/17 13:25 Anti-Inflamma vasoconstrictive syndrome rizatriptan [From Maxalt] Allergy Severe cerebral Verified 11/14/17 13:25 vasoconstrive syndrome Sulfa (Sulfonamide Allergy Severe HIVES Verified 11/28/17 11:06 Antibiotics) [SULFA (SULFONAMIDE ANTIBIOTICS)] tree nut Allergy Severe Anaphylaxis Verified 11/14/17 13:25 walnut Allergy Severe Anaphylaxis Verified 11/14/17 13:25 hydromorphone [From Dilaudid] AdvReac Severe Vomiting Verified 11/14/17 13:25 Review of Systems <SUNSHINE Morales - Last Filed: 09/11/19 21:44> Review of Systems Narrative: REVIEW OF SYSTEMS: GENERAL: Denies fever or chills. HENT: No head trauma. EYES: No vision changes. CARDIOVASCULAR: No chest pain or syncope. RESPIRATORY: No shortness of breath or cough. GASTROINTESTINAL: No nausea, vomiting, diarrhea, or constipation. GENITOURINARY: No flank pain or dysuria. MUSCULOSKELETAL: Complains of left arm weakness, see HPI. INTEGUMENTARY: No rash, lesions, or pruritus. NEURO: Complains of ?pins and needles and weakness. PSYCH: No behavior or mood changes. Patient History <SUNSHINE Morales - Last Filed: 09/11/19 21:44> Medical History Anisocoria (Acute) Chronic thoracic spine pain (Acute) Depression (Acute) Hirsutism (Acute) Migraine with aura (Acute) MRSA (methicillin resistant Staphylococcus aureus) (Acute) Numbness of right hand (Acute) Osteoarthritis (Acute) PCOS (polycystic ovarian syndrome) (Acute) Reversible cerebrovascular vasoconstriction syndrome (Acute) Right shoulder pain (Acute) Surgical History Status post breast reduction Status post knee surgery Social History household members: spouse and children Smoking Status: Unknown if ever smoked Smoking Status: Unknown if ever smoked Substance Use Type: does not use Exam <SUNSHINE Morales - Last Filed: 09/11/19 21:44> Initial Vital Signs Initial Vital Signs: Vital Signs Temperature 97.9 F 09/11/19 10:32 Pulse Rate 118 H 09/11/19 10:32 Respiratory Rate 13 09/11/19 10:32 Blood Pressure 195/98 H 09/11/19 10:32 Pulse Oximetry 98 09/11/19 10:32 PHYSICAL EXAMINATION: GENERAL: Well groomed, alert, and cooperative. Answers questions promptly and appropriately. Vital signs noted. HENT: Normocephalic, atraumatic. EYES: Symmetrical, sclera white, no periorbital swelling. CARDIOVASCULAR: S1 and S2 sounds normal. Regular rate and rhythm, no murmurs, clicks, or bruits. RESPIRATORY: Normal respiratory rate, trachea midline, airway patent. No stridor, nasal flaring or accessory muscle use. MUSCULOSKELETAL: Weakness noted on left side with airport duty manager strength, patient able to move wrist. Unable to bend elbow, able to move shoulder forward but not raise her arm. Complete passive range of motion of elbow. Passive range of motion of shoulder causes pain especially with arm extension. No cervical spinal tenderness. Palpable muscle spasms noted to left trapezius muscle. EXTREMITIES: CMS intact. Radial pulses 2+ and intact bilaterally. SKIN: Warm, dry, soft, appropriate color for ethnicity. No lesions, rashes, or wounds. NEURO: Alert and Oriented X 3. No sensory deficits. PSYCH: Appropriate affect and mood. <Leonardo Rodírguez MD - Last Filed: 09/21/19 07:40> Initial Vital Signs Initial Vital Signs: Vital Signs Temperature 97.9 F 09/11/19 10:32 Pulse Rate 118 H 09/11/19 10:32 Respiratory Rate 13 09/11/19 10:32 Blood Pressure 195/98 H 09/11/19 10:32 Pulse Oximetry 98 09/11/19 10:32 Course <SUNSHINE Morales - Last Filed: 09/11/19 21:44> Course Course Narrative: 1400: Spoke with Dr. Jules from orthopedic about MRI results, discussed patient's symptoms and left arm weakness. Suggested consulting with Neurosurgery. 1430: Updated patient, patient states pain has significantly improved. Patient is able to move forearm slightly more after pain medication was given. Left airport duty manager strength still significantly decreased. Patient seen using extended arm to help boost herself in bed during, unsure how much weight was placed on arm. 1600: I spoke with Dr. Donald from [facility] neuro surgery. Discussed that patient has decreased airport duty manager strength does not correlate with findings of C4-C5 abnormality on MRI. Guest Attendant strength is usually correlated with C7. We discussed that decreased range of motion is most likely due to pain versus spinal cord compression. Discussed that EMG study was needed. Suggested course of prednisone, pain medication, and follow-up with a spinal clinic. Additionally, Dr. Donald had access to a CT angio done previously a few years ago and noted similar C4-C5 abnormality. Additionally, suggested further MSK evaluation of shoulder at this may also be causing pain and symptoms. Orders Ordered: Discontinued Medications Oxycodone HCl (Percolone) 5 mg PO NOW ONE Stop: 09/11/19 13:07 Last Admin: 09/11/19 13:13 Dose: 5 mg Documented by: RUI Oxycodone HCl (Percolone) 5 mg PO NOW ONE Stop: 09/11/19 16:46 Last Admin: 09/11/19 16:50 Dose: 5 mg Documented by: RUI Consultations Consultation #1: Patient staffed with Dr. Rodríguez discussed test, test results, and plan of care. Vital Signs Vital signs: Vital Signs - 8 hr 09/11/19 14:09 09/11/19 15:29 Pulse Rate 96 H 90 Respiratory Rate 16 16 Blood Pressure [Left Arm] 112/57 L 169/98 H Pulse Oximetry 96 97 <Leonardo Rodríguez MD - Last Filed: 09/21/19 07:40> Orders Ordered: Discontinued Medications Oxycodone HCl (Percolone) 5 mg PO NOW ONE Stop: 09/11/19 13:07 Last Admin: 09/11/19 13:13 Dose: 5 mg Documented by: RUI Oxycodone HCl (Percolone) 5 mg PO NOW ONE Stop: 09/11/19 16:46 Last Admin: 09/11/19 16:50 Dose: 5 mg Documented by: RUI Vital Signs Vital signs: Vital Signs - 8 hr 09/11/19 14:09 09/11/19 15:29 Pulse Rate 96 H 90 Respiratory Rate 16 16 Blood Pressure [Left Arm] 112/57 L 169/98 H Pulse Oximetry 96 97 MDM - Extremity Injury (Upper) <SUNSHINE Morales - Last Filed: 09/11/19 21:44> Medical Records Attestation: I reviewed the patient's medical records. Lab Data Attestation: I reviewed the patient's lab results. Imaging Data Extremity x-ray #1: Radiologist's Impression: [address] [id number] Magnetic Resonance Report Signed Patient: Nelson Spicer MMR#: [id number] : 1975Acct:[id number] Age/Sex: 43 / FDate of Service: 09/11/19 Loc: ED Accession Number: [id number] Procedure: MR cervical spine wo con Ordering Provider: Diane Adames PROCEDURE: MR CERVICAL SPINE WO CON INDICATIONS: L arm weakness, numbness, tingling, TECHNIQUE: Noncontrast sagittal T1 spin echo and T2 fast spin echo, sagittal STIR, foraminal oblique sagittal T2 fast spin echo, and axial gradient echo or T2 fast spin echo through the cervical spine. COMPARISON: None. FINDINGS: Image quality: This examination is limited by involuntary motion artifact. Alignment and Curvature: There is straightening of the normal cervical lordosis. No focal AP alignment abnormality is seen. Bone Marrow: Marrow demonstrates normal overall signal. Spinal Cord: Visualized spinal cord has normal size and signal. No cerebellar tonsillar herniation. Paraspinous Soft Tissues: No paravertebral masses. Prevertebral soft tissues are normal in thickness. No jeimy findings of ligamentous abnormality can be seen. C2-C3: The disc height and disc signal are relatively well-preserved. A mild degree of generalized disc osteophyte complex is seen. There is moderate right-sided and mild left-sided facet hypertrophy seen. There is moderate right-sided and minimal left-sided neural foraminal narrowing seen. Mild to moderate central canal narrowing is seen. C3-C4: The disc height is well-preserved. Loss of disc signal is seen at this level. Moderate generalized disc osteophyte complex is seen. Mild to moderate facet hypertrophy is seen. There is moderate to severe right-sided and at least moderate left-sided neural foraminal narrowing seen. Moderate central canal narrowing is seen. There is associated mass effect upon the ventral spinal cord. C4-C5: The disc height is well-preserved. Loss of disc signal is seen at this level. Moderate disc osteophyte complex is seen, with a4 left lateral recess disc osteophyte protrusion, as on series or image 24. Moderate facet joint hypertrophy is seen. Moderate to severe bilateral neural foraminal narrowing can be seen. Moderate to severe central canal narrowing is seen, with associated mass effect upon the ventral spinal cord. C5-C6: Mild loss of disc height is seen. Loss of disc signal is seen. Moderate disc osteophyte complex is seen, which is eccentric to the left. There is at least moderate facet hypertrophy seen. There is moderate to severe bilateral neural foraminal narrowing seen. Moderate to severe central canal narrowing is seen. There is associated mass effect upon the ventral spinal cord. C6-C7: The disc height is well-preserved. Loss of disc signal is seen at this level. At least moderate disc osteophyte complex is seen, which is eccentric to the right. Mild to moderate facet hypertrophy is seen. There is moderate to severe bilateral neural foraminal narrowing seen, right worse than left. Moderate central canal narrowing is seen. There is associated mass effect upon the ventral spinal cord. C7-T1: The disc height is well-preserved. Loss of disc signal is seen at this level. Mild to moderate disc osteophyte complex is seen. Mild facet joint hypertrophy is seen. At least moderate neural foraminal narrowing can be seen. Moderate central canal narrowing is seen. There is associated mass effect upon the ventral spinal cord. IMPRESSION: Multiple levels of cervical spine degenerative change are seen, which are more prominent than would be expected for a patient of this age. At the C4-C5 level, there is a left lateral recess disc osteophyte protrusion seen, with associated mass effect. Straightening of the normal cervical lordosis is seen, which is commonly observed in patients with muscular spasm. Dictated by: Pierre Bingham M.D. on 09/11/2019 at 11:47 Approved by: Pierre Bingham M.D. on 09/11/2019 at 11:52 [facility] Narrative Medical decision making narrative: 43-year-old female presents emergency department for repeat for evaluation of left shoulder and neck pain post fall with new left arm numbness. I suspect patient's pain is most likely caused by cervical spine degenerative changes and C4-C5 osteophyte protrusion. Less likely spinal cord compromise is decreased airport duty manager strength does not correlate with C4-C5 protrusion, rather C7 disc height was all preserved at this area. Additionally, tendon and nerve irritation of the shoulder may also contribute. I spoke with Neurosurgery about possible need for surgical intervention nerve involvement, he was reassured by reviewing MRI and past scans that this was most decreased strength is most likely related related to pain and MSK injury of shoulder. Suggested follow-up with EMG study and a course of steroids with pain medication. Patient was given follow-up with spinal clinic. She was given prednisone and pain medication per instruction. She was encouraged to return emergency department for any new or worsening symptoms. Patient agreed to plan of care verbalized understanding. Discharge Plan Departure Patient Disposition: Home Clinical Impression: Cervical disc disorder at C4-C5 level with radiculopathy, Left arm weakness Discharge Date/Time: 09/11/19 16:53 Instructions: DI for Muscle Spasm Activity Restrictions/Additional Instructions: Thank you for entrusting me with your care today. As discussed, I spoke with Dr. Donald at Neurosurgery at [facility] who suggests a course of steroid medication and follow-up with the spine clinic. He also suggests EMG studies of your nerves. I prescribed you steroid medication as discussed. Please be aware that this can cause jitters, insomnia, and increased anxiety occasionally. Return to the emergency department for any new or worsening symptoms such as fevers, chest pain, syncope, severe weakness, or any new or worsening symptoms. Prescriptions: New oxycodone-acetaminophen [Percocet] 5-325 mg tablet 1 tab PO Q4-6H PRN (Reason: pain) Qty: 10 RF: 0 No Action hydrocodone-acetaminophen [Vicodin] 5 MG/300 MG tablet 1 tab PO Q4HP PRN (Reason: PAIN) Qty: 0 RF: 0 atorvastatin [Lipitor] 20 MG tablet 20 mg PO QDAY Qty: 0 RF: 0 fluoxetine 40 mg Capsule 40 mg PO DAILY RF: 0 verapamil 180 mg Capsule,Ext Rel. Pellets 24 Hr 180 mg PO BEDTIME RF: 0 epinephrine [EpiPen] 0.3 mg/0.3 mL Auto-Injector 0.3 mg IM PRN PRN (Reason: Anaphylaxis) RF: 0 oxycodone 5 mg Tablet 5 mg PO Q3HR PRN (Reason: Pain, Moderate) Qty: 40 RF: 0 hydroxyzine pamoate 25 mg Capsule 25 mg PO Q4HR PRN (Reason: Muscle Spasm) Qty: 40 RF: 0 cyclobenzaprine 10 mg tablet 10 mg PO TID PRN (Reason: muscle spasm) Qty: 20 RF: 0 Referrals: Nabil Seay MD [Non-Staff] - Stephanie Truong PA-C [Primary Care Provider] -
[2019-09-11] MEDS: OXYCODONE IR 5 MG TABLET PO ×2 (13:13→16:50)
[2019-09-11 13:20] VITALS: BP 169/97; PULSE 107; RESP 16; O2SAT 97
[2019-09-11 14:09] VITALS: BP 112/57; PULSE 96; RESP 16; O2SAT 96
[2019-09-11 15:29] VITALS: BP 169/98; PULSE 90; RESP 16; O2SAT 97
== END 2019-09-11 16:53 | disposition home or self-care (01) ==
PROVIDERS: Emergency Provider Nurse Practitioner; Family Provider Obstetrics & Gynecology; PCP Physician Assistant
DX: M50.121 Cervical disc disorder at C4-C5 level with radiculopathy (principal); R53.1 Weakness; W19.XXXA Unspecified fall, initial encounter
CPT/HCPCS: 72141; 99283; 99284

== ENCOUNTER → 2019-11-15 11:37 | Outpatient (CLI) | payer OTHER, SELFPAY ==
[2019-11-15 12:26] LABS: Add Manual Diff / Slide Review NO; Basophils Absolute Auto 0 /uL (0-100); Basophils Percent Auto 0.4 % (0-2); Eosinophils Absolute Auto 200 /uL (0-450); Eosinophils Percent Auto 3.3 % (2-4); Hematocrit 43.4 % (36-46); Lymphocytes Absolute Auto 1900 /uL (1100-4500); Lymphocytes Percent Auto 34.9 % (25-40); Mean Corpuscular HGB Conc 34.7 % (30-36); Mean Corpuscular Hemoglobin 30.3 PG (26-34); Mean Corpuscular Volume 87.3 fL (80-100); Monocytes Absolute Auto 500 /uL (0-900); Monocytes Percent Auto 8.4 % (3-14); Neutrophils Absolute Auto 2900 /uL (1500-7000); Platelet Count 232 X10^3/uL (150-400); Red Blood Cell Count 4.97 X10^6/uL (4.0-5.2); White Blood Cell Count 5.4 X10^3/uL (4.5-11.0)
[2019-11-15 12:50] LABS: BUN Creatinine Ratio 14.5 (6-22); Blood Urea Nitrogen 10 mg/dL (7-17); Calcium 9.7 mg/dL (8.4-10.2); Carbon Dioxide 28 mmol/L (22-32); Chloride 102 mmol/L (98-107); Estimated Glomerular Filt Rate > 60.0 mL/min (>60); Glucose 107 mg/dL (70-100); HEMOLYSIS < 15 (0-50); Potassium 4.7 mmol/L (3.4-5.1); Sodium 139 mmol/L (137-145)
== END ==
LOC: LAB 11:42
PROVIDERS: Family Provider Obstetrics & Gynecology; PCP Physician Assistant; Referring Provider Neurological Surgery; Visit Provider Neurological Surgery
DX: M48.02 Spinal stenosis, cervical region (principal)
CPT/HCPCS: 36415; 80048; 85025; 93005; 93010

== ENCOUNTER → 2019-11-17 12:44 | Outpatient (CLI) | payer OTHER, SELFPAY ==
[2019-11-18 23:37] LABS: COVID19 Sendout Not Detected (Not Detect)
== END ==
PROVIDERS: Family Provider Obstetrics & Gynecology; PCP Physician Assistant; Visit Provider Physician Assistant
DX: Z01.812 Encounter for preprocedural laboratory examination (principal)
CPT/HCPCS: 87635

== ENCOUNTER → 2020-03-25 17:06 | Outpatient (CLI) | payer OTHER, SELFPAY ==
--- NOTE | 2020-03-25 17:10 | DI.MRI.S_ITS ---
PROCEDURE: MR CERVICAL SPINE WO CON INDICATIONS: RADICULOPATHY, CERVICAL REGION TECHNIQUE: Noncontrast sagittal T1 spin echo and T2 fast spin echo, sagittal STIR, foraminal oblique sagittal T2 fast spin echo, and axial gradient echo or T2 fast spin echo through the cervical spine. COMPARISON: [facility], MR, MR CERVICAL SPINE WO CON, 09/11/2019, 12:06. [facility], CT, CT CERVICAL SPINE WO CON, 09/09/2019, 15:39. FINDINGS: Image quality: Diagnostic, with note made of motion artifact. There is artifact associated with the metallic hardware. Alignment and Curvature: There is normal bony alignment. Bone Marrow: Marrow demonstrates normal overall signal. Spinal Cord: Visualized spinal cord has normal size and signal. No cerebellar tonsillar herniation. Paraspinous Soft Tissues: No paravertebral masses. Prevertebral soft tissues are normal in thickness. C2-C3: The disc height is well-preserved. Loss of disc signal is seen at this level. Mild to moderate disc osteophyte complex is seen. There is moderate right-sided and mild left-sided facet hypertrophy seen. There is moderate right-sided and no significant left-sided neural foraminal narrowing. Mild to moderate central canal narrowing is seen. Stable from the prior study. C3-C4: The disc height is well-preserved. Loss of disc signal is seen at this level. Moderate disc osteophyte complex is seen, which is eccentric to the right. Moderate facet joint hypertrophy is seen. There is moderate to severe right-sided and at least moderate left-sided neural foraminal narrowing seen. Moderate central canal narrowing is seen. There is associated mass effect upon the ventral spinal cord. Stable from the prior study. C4-C5: Interval placement of an anteriorly placed disc fixation device, with associated susceptibility artifact. Moderate prominent disc osteophyte complex is seen, with a left lateral recess disc osteophyte protrusion seen. Mild to moderate facet hypertrophy is seen. There is moderate to severe bilateral neural foraminal narrowing seen, left worse than right. Moderate central canal narrowing is seen. There is associated mass effect upon the ventral spinal cord. This level is slightly improved compared to the prior. C5-C6: Mild loss of disc height is seen. Loss of disc signal is seen. Moderate prominent disc osteophyte complex is seen. Moderate prominent facet hypertrophy is seen. There is moderate to severe bilateral neural foraminal narrowing seen. Moderate to severe central canal narrowing is seen, with associated mass effect upon the ventral spinal cord. When comparison is made with the prior examination, these findings are similar. C6-C7: The disc height is well-preserved. Loss of disc signal is seen at this level. Moderate generalized disc osteophyte complex is seen. There is a central disc osteophyte protrusion seen. There is moderate right-sided and mild left-sided facet hypertrophy seen. There is moderate to severe right-sided and at least moderate left-sided neural foraminal narrowing seen. Moderate to severe central canal narrowing is seen. There is associated mass effect upon the ventral spinal cord. When comparison is made with the prior examination, these findings are similar. C7-T1: The disc height is well-preserved. Loss of disc signal is seen at this level. Mild to moderate disc osteophyte complex is seen. Mild to moderate facet hypertrophy is seen. There is moderate to severe right-sided and mild left-sided neural foraminal narrowing seen. Mild to moderate central canal narrowing is seen. No significant change from the prior. IMPRESSION: Interval placement of a disc fusion device at C4-C5 level, with slight improvement at this level compared to the preoperative MRI. Otherwise, stable degenerative change. Dictated by: Pierre Bingham M.D. on 03/25/2020 at 17:08 Approved by: Pierre Bingham M.D. on 03/25/2020 at 17:14
== END ==
PROVIDERS: Family Provider Obstetrics & Gynecology; PCP Physician Assistant; Referring Provider Physician Assistant; Visit Provider Physician Assistant
DX: M47.22 Other spondylosis with radiculopathy, cervical region (principal); Z48.811 Encounter for surgical aftercare following surgery on the nervous system
CPT/HCPCS: 72141

== ENCOUNTER → 2020-05-07 13:18 | Outpatient (CLI) | payer OTHER, SELFPAY ==
--- NOTE | 2020-05-07 | DI.MG.S_ITS ---
BILATERAL DIGITAL DIAGNOSTIC MAMMOGRAM 3D/2D SHORT-TERM FOLLOW-UP: 05/07/2020 CLINICAL: Short term follow up of the left breast, due for bilateral imaging. Comparison is made to exams dated: 12/18/2018 mammogram, 03/24/2018 mammogram, 08/19/2017 mammogram, and 08/04/2017 mammogram - [facility]. There are scattered fibroglandular elements in both breasts. There is an oval equal density focal asymmetry with an indistinct margin in the left breast at 1 o'clock posterior depth. This is not significantly changed. No other significant masses, calcifications, or other findings are seen in either breast. IMPRESSION: BENIGN The oval equal density focal asymmetry in the left breast is statistically benign. There is no mammographic evidence of malignancy. Return to annual mammogram screening schedule is recommended. This exam was interpreted at Station ID: [id number]. NOTE: For mammograms, a report in lay terms will be sent to the patient. Approximately 15% of breast malignancies will not be visualized mammographically. In the management of a palpable breast mass, a negative mammogram must not discourage biopsy of a clinically suspicious lesion. Electronically Signed By: Deric Espinosa M.D. jr/:05/07/2020 14:10:35 letter sent: Normal Exam ACR BI-RADS Category 2: Benign Finding(s) 3342F
== END ==
PROVIDERS: Family Provider Obstetrics & Gynecology; PCP Physician Assistant; Referring Provider Physician Assistant; Visit Provider Physician Assistant
DX: R92.8 Other abnormal and inconclusive findings on diagnostic imaging of breast (principal); N64.4 Mastodynia; N64.89 Other specified disorders of breast
CPT/HCPCS: 77066; G0279

== ENCOUNTER 2021-08-03 23:46 | Emergency (ER) | payer OTHER, SELFPAY ==
[2021-08-03 23:55] VITALS: BP 233/111; PULSE 107; RESP 18; TEMP 37; O2SAT 96; BMI 36.6
[2021-08-04] VITALS (13 sets, daily range): BP systolic 138–195; BP diastolic 72–104; PULSE 79–96; RESP 8–12; O2SAT 94–97
--- NOTE | 2021-08-04 00:02 | DI.RAD.S_ITS ---
PROCEDURE: XR CHEST 1V INDICATIONS: chest pain TECHNIQUE: One view of the chest was acquired. COMPARISON: [facility], , CHEST 1 VIEW, 02/04/2016, 16:54. FINDINGS: Surgical changes and devices: None. Lungs and pleura: Lungs are clear. No pleural effusions or pneumothorax. Mediastinum: Mediastinal contours appear normal. Heart size is normal. Bones and chest wall: No suspicious bony lesions. Overlying soft tissues appear unremarkable. IMPRESSION: 1. No acute cardiopulmonary disease. Dictated by: Jack Olvera M.D. on 08/04/2021 at 0:24 Approved by: Jack Olvera M.D. on 08/04/2021 at 0:25
[2021-08-04 00:31] LABS: Basophils Absolute Auto 100 /uL (0-100); Basophils Percent Auto 1.3 % (0-2); Eosinophils Absolute Auto 300 /uL (0-450); Eosinophils Percent Auto 3.3 % (2-4); Hematocrit 42.8 % (36-46); Hemoglobin 14.7 g/dL (12.0-16.0); Lymphocytes Absolute Auto 3900 /uL (1100-4500); Lymphocytes Percent Auto 38.7 % (25-40); Mean Corpuscular HGB Conc 34.3 % (30-36); Mean Corpuscular Hemoglobin 29.9 PG (26-34); Mean Corpuscular Volume 87.3 fL (80-100); Monocytes Absolute Auto 800 /uL (0-900); Monocytes Percent Auto 7.9 % (3-14); Neutrophils Absolute Auto 4900 /uL (1500-7000); Neutrophils Percent Auto 48.8 % (50-75); Red Cell Distribution Width 13.3 % (11.6-14.8); White Blood Cell Count 10.1 X10^3/uL (4.5-11.0)
[2021-08-04 00:33] LABS: Add Manual Diff / Slide Review SLIDE REVIEW
[2021-08-04 00:47] LABS: Alanine Aminotransferase 38 IU/L (<35); Albumin 4.7 g/dL (3.5-5.0); Albumin Globulin Ratio 1.3 (1.0-2.8); Alkaline Phosphatase 37 U/L (38-126); Aspartate Aminotransferase 37 IU/L (14-36); BUN Creatinine Ratio 26.7 (6-22); Bilirubin Total 0.6 mg/dL (0.2-1.3); Blood Urea Nitrogen 16 mg/dL (7-17); Calcium 9.5 mg/dL (8.4-10.2); Carbon Dioxide 24 mmol/L (22-32); Chloride 103 mmol/L (98-107); Creatine Kinase 137 U/L (30-135); Estimated Glomerular Filt Rate > 60.0 mL/min (>60); Globulin 3.6 g/dL (1.7-4.1); Glucose 117 mg/dL (70-100); Lipase 120 U/L (23-300); Platelet Count 220 X10^3/uL (150-400); Platelet Estimate Adequate on smear; Sodium 138 mmol/L (137-145); Total Protein 8.3 g/dL (6.3-8.2)
[2021-08-04 00:52] LABS: Potassium 4.8 mmol/L (3.4-5.1)
--- NOTE | 2021-08-04 00:57 | PC.NURSE ---
Pt also reports a headache and hypertension along with chest pressure
[2021-08-04 00:58] LABS: Troponin I < 0.012 ng/mL (0.01-0.034)
[2021-08-04 01:02] LABS: Creatine Kinase MB 2.79 ng/mL (<2.37)
[2021-08-04 01:06] LABS: HEMOLYSIS 87 (0-50)
--- NOTE | 2021-08-04 02:52 | ED.GENADULT ---
HPI - General Adult General Chief complaint: Hypertension Stated complaint: HEADACHES, HIGH BLOOD PRESSURE Time Seen by Provider: 08/04/21 01:58 Source: patient and family Mode of arrival: Ambulatory History of Present Illness HPI narrative: The patient presents with a global headache. She has chronic headaches. She presents with a headache with blood pressure at home greater than 180 systolic. She has no visual changes. She does not have scotoma or photophobia. She has no neck pain. She has no chest pain, or dyspnea. She currently takes verapamil, but for chronic headaches. She is not on the medication for her blood pressure. Regarding her chronic headaches, she has reversible cerebrovascular constriction syndrome for which the Verapamil is prescribed. She currently has no visual changes, no confusion, no weakness or numbness in her extremities. She has abdominal pain but no nausea or vomiting. She was seen at a nearby hospital, she denies gallbladder disease. She is supposed to see a vice president of software engineering. Related Data Home Medications Medication Instructions Recorded Confirmed hydrocodone 5 mg-acetaminophen 300 1 tab PO Q4HP PRN #0 01/18/16 11/28/17 mg tablet (Vicodin) atorvastatin 20 mg tablet (Lipitor) 20 mg PO QDAY #0 02/04/16 11/28/17 epinephrine 0.3 mg/0.3 mL 0.3 mg IM PRN PRN 11/14/17 11/14/17 injection, auto-injector (EpiPen) fluoxetine 40 mg capsule 40 mg PO DAILY 11/14/17 11/28/17 verapamil 180 mg 24 hr 180 mg PO BEDTIME 11/14/17 11/28/17 capsule,extended release Previous Rx's Medication Instructions Recorded hydroxyzine pamoate 25 mg capsule 25 mg PO Q4HR PRN #40 cap 11/28/17 oxycodone 5 mg tablet 5 mg PO Q3HR PRN #40 tab 11/28/17 cyclobenzaprine 10 mg tablet 10 mg PO TID PRN #20 tab 09/09/19 oxycodone-acetaminophen 5 mg-325 1 tab PO Q4-6H PRN #10 tab 09/11/19 mg tablet (Percocet) Allergies Allergy/AdvReac Type Severity Reaction Status Date / Time amoxicillin [AMOXICILLIN] Allergy Severe HIVES Verified 11/17/19 12:42 NSAIDS (Non-Steroidal Allergy Severe cerebral Verified 11/17/19 12:42 Anti-Inflamma vasoconstrictive syndrome rizatriptan [From Maxalt] Allergy Severe cerebral Verified 11/17/19 12:42 vasoconstrive syndrome Sulfa (Sulfonamide Allergy Severe HIVES Verified 11/17/19 12:42 Antibiotics) [SULFA (SULFONAMIDE ANTIBIOTICS)] tree nut Allergy Severe Anaphylaxis Verified 11/17/19 12:42 walnut Allergy Severe Anaphylaxis Verified 11/17/19 12:42 hydromorphone [From Dilaudid] AdvReac Severe Vomiting Verified 11/17/19 12:42 Review of Systems Constitutional Constitutional: Denies anorexia, Denies body ache(s), Denies chills, Denies fatigue, Denies fever(s) and Reports headache(s) Eyes Eyes: Denies change in vision and Denies loss of vision Comments: No photophobia. ENT Ears, Nose, Mouth, and Throat: Denies vertigo, Denies dizziness, Denies ear discharge, Reports headache(s), Denies hoarseness, Reports neck pain and Denies sore throat Cardiovascular Cardiovascular: Denies chest pain, Denies rapid heart rate, Denies edema, Denies irregular heart rhythm and Denies dyspnea Respiratory Respiratory: Denies chest congestion, Denies cough and Denies dyspnea Gastrointestinal Gastrointestinal: Reports abdominal pain (See HPI), Denies nausea and Denies vomiting Genitourinary Genitourinary: Denies dysuria Musculoskeletal Musculoskeletal: Reports arthralgias, Denies back pain, Denies myalgias, Reports neck pain and Denies numbness Integumentary/Breasts Skin/Breast: Denies lesions and Denies rash Neurologic Neurologic: Denies confusion, Denies vertigo, Denies dizziness, Reports headache(s), Denies loss of vision and Denies numbness Psychiatric Psychiatric: Denies anxiety, Denies confusion and Denies depression Endocrine Endocrine: Denies fatigue Hematologic/Lymphatic On Anticoagulants: No Patient History Medical History (Updated 08/04/21 @ 04:47 by Silas Pearce MD) Anisocoria Chronic thoracic spine pain Depression Hirsutism Migraine with aura MRSA (methicillin resistant Staphylococcus aureus) Numbness of right hand Osteoarthritis PCOS (polycystic ovarian syndrome) Reversible cerebrovascular vasoconstriction syndrome Right shoulder pain Surgical History Status post breast reduction Status post knee surgery Social History household members: spouse and children Smoking Status: Never smoker Smoking Status: Never smoker alcohol intake frequency: other Substance Use Type: does not use Exam Initial Vital Signs Initial Vital Signs: Vital Signs Temperature 98.6 F 08/03/21 23:55 Pulse Rate 107 H 08/03/21 23:55 Respiratory Rate 18 08/03/21 23:55 Blood Pressure 233/111 H 08/03/21 23:55 Pulse Oximetry 96 08/03/21 23:55 Const General: cooperative, healthy appearing, comfortable, well developed and well groomed [facility] Head: normal to inspection, normocephalic and atraumatic Face and sinus: normal facial exam and sinuses nontender Mouth: oral mucosae normal Eyes General: appearance normal, both eyes and all related structures Conjunctivae: abnormal conjunctivae Sclera: abnormal sclerae Pupils: pupils not ERRL EOM: EOM not intact bilaterally Neck Neck: normal visual inspection, full ROM and No JVD Chest Chest: normal inspection of the chest Resp Effort & Inspection: normal respiratory effort Auscultation: clear to auscultation bilaterally Cardio Rate: regular rate Rhythm: regular rhythm Heart Sounds: S1 normal and S2 normal GI Inspection: normal to inspection Palpation: soft, No mass and tender (In RUQ without distention, guarding or rebound.) Auscultation: normal bowel sounds Back/Spine/Pelvis Back: normal to inspection, No back tenderness and No CVA tenderness Skin General: no rashes or lesions noted Neuro General: patient alert, patient awake, patient oriented x3 and no focal motor deficits Extrem General: normal to inspection, full ROM, no pedal edema and no calf tenderness Psych Mental Status: mental status grossly normal Course Course Course Narrative: The patient was given morphine for her headaches. Her headache has improved. She has also experienced abdominal pain, not an issue at triage. She is GI consultation pending. Her blood pressure improved from 195/104 to 138/72 without intervention other than pain medications for headache. I would not intervene with her blood pressure tonight, but she certainly should follow-up with PCM to monitor her blood pressure. There is no evidence cardiopulmonary issues tonight. The discomfort of the headache likely was involved in the high blood pressure. She is sleeping, feeling much better is time of discharge. Orders Ordered: ED Orders 08/04/21 00:02 XR chest 1V Stat EKG-12 Lead Stat 08/04/21 00:15 Complete Blood Count AUTO DIFF Stat Comprehensive Metabolic Panel Stat Lipase Stat Magnesium Stat Troponin & CK Cardiac Panel Stat Discontinued Medications Morphine Sulfate (Morphine 4 Mg/Ml Inj) 4 mg IV NOW ONE Stop: 08/04/21 03:02 Last Admin: 08/04/21 03:31 Dose: 4 mg Documented by: JONNY Vital Signs Vital signs: Vital Signs - 8 hr 08/03/21 23:55 08/04/21 00:53 08/04/21 00:54 Temperature 98.6 F Pulse Rate 107 H 96 H 96 H Respiratory Rate 18 Blood Pressure 233/111 H 195/104 H Pulse Oximetry 96 96 95 08/04/21 01:00 08/04/21 01:30 08/04/21 01:31 Temperature Pulse Rate 91 H 87 85 Respiratory Rate 12 10 L 8 L Blood Pressure 173/85 H 173/80 H Pulse Oximetry 97 96 97 08/04/21 02:00 08/04/21 02:30 08/04/21 03:00 Temperature Pulse Rate 87 89 91 H Respiratory Rate 8 L 12 11 L Blood Pressure 168/80 H 155/86 H Pulse Oximetry 95 95 96 08/04/21 03:01 08/04/21 03:30 08/04/21 04:00 Temperature Pulse Rate 88 86 81 Respiratory Rate 9 L 9 L Blood Pressure 157/93 H 169/86 H Pulse Oximetry 95 96 95 08/04/21 04:01 Temperature Pulse Rate 81 Respiratory Rate 9 L Blood Pressure 138/72 Pulse Oximetry 96 Medical Decision Making Lab Data Result diagrams: 08/04/21 00:15 08/04/21 00:15 Labs: Lab Results 08/04/21 08/04/21 Range/Units 00:15 00:15 WBC 10.1 (4.5-11.0) X10^3/uL RBC 4.90 (4.0-5.2) X10^6/uL Hgb 14.7 (12.0-16.0) g/dL Hct 42.8 (36-46) % MCV 87.3 (80-100) fL MCH 29.9 (26-34) PG MCHC 34.3 (30-36) % RDW 13.3 (11.6-14.8) % Plt Count 220 (150-400) X10^3/uL Neut % (Auto) 48.8 L (50-75) % Lymph % (Auto) 38.7 (25-40) % [place] % (Auto) 7.9 (3-14) % Eos % (Auto) 3.3 (2-4) % Baso % (Auto) 1.3 (0-2) % Neut # (Auto) 4900 (4582-3316) /uL Lymph # (Auto) 3900 (7259-6530) /uL [place] # (Auto) 800 (0-900) /uL Eos # (Auto) 300 (0-450) /uL Baso # (Auto) 100 (0-100) /uL Platelet Estimate Adequate on smear RBC Morphology Not Reportable Sodium 138 (137-145) mmol/L Potassium 4.8 (3.4-5.1) mmol/L Chloride 103 (98-107) mmol/L Carbon Dioxide 24 (22-32) mmol/L BUN 16 (7-17) mg/dL Creatinine 0.60 (0.52-1.04) mg/dL Estimated GFR > 60.0 (>60) mL/min BUN/Creatinine Ratio 26.7 H (6-22) Glucose 117 H (70-100) mg/dL Calcium 9.5 (8.4-10.2) mg/dL Magnesium 2.0 (1.6-2.3) mg/dL Total Bilirubin 0.6 (0.2-1.3) mg/dL AST 37 H (14-36) IU/L ALT 38 H (<35) IU/L Alkaline Phosphatase 37 L (38-126) U/L Total Creatine Kinase 137 H (30-135) U/L CK-MB (CK-2) 2.79 H (<2.37) ng/mL CK-MB (CK-2) Rel Index 2.0 (1.5-5.0) % Troponin I < 0.012 (0.01-0.034) ng/mL Total Protein 8.3 H (6.3-8.2) g/dL Albumin 4.7 (3.5-5.0) g/dL Globulin 3.6 (1.7-4.1) g/dL Albumin/Globulin Ratio 1.3 (1.0-2.8) Lipase 120 (23-300) U/L ECG Data Attestation: I personally reviewed and interpreted this ECG as follows: (Normal sinus rhythm rate 99 beats per minute. Normal intervals. Nonspecific ST T wave changes. No acute ST elevation.) Discharge Plan Departure Patient Disposition: Home Clinical Impression: Headache, Abdominal pain, RUQ, Elevated blood pressure reading Instructions: DI for High Blood Pressure Activity Restrictions/Additional Instructions: Continue your current medications. Follow-up with the GI specialist as planned for the right upper quadrant abdominal pain Your blood pressure readings are elevated, not to the level that your require immediate attention. Should follow-up with your doctor in discuss your blood pressure management. Return here as needed. Prescriptions: No Action hydrocodone-acetaminophen [Vicodin] 5 MG/300 MG tablet 1 tab PO Q4HP PRN (Reason: PAIN) Qty: 0 0RF atorvastatin [Lipitor] 20 MG tablet 20 mg PO QDAY Qty: 0 0RF fluoxetine 40 mg Capsule 40 mg PO DAILY 0RF verapamil 180 mg Capsule,Ext Rel. Pellets 24 Hr 180 mg PO BEDTIME 0RF epinephrine [EpiPen] 0.3 mg/0.3 mL Auto-Injector 0.3 mg IM PRN PRN (Reason: Anaphylaxis) 0RF oxycodone 5 mg Tablet 5 mg PO Q3HR PRN (Reason: Pain, Moderate) Qty: 40 0RF hydroxyzine pamoate 25 mg Capsule 25 mg PO Q4HR PRN (Reason: Muscle Spasm) Qty: 40 0RF cyclobenzaprine 10 mg tablet 10 mg PO TID PRN (Reason: muscle spasm) Qty: 20 0RF oxycodone-acetaminophen [Percocet] 5-325 mg tablet 1 tab PO Q4-6H PRN (Reason: pain) Qty: 10 0RF Referrals: Stephanie Truong PA-C [Primary Care Provider] -
[2021-08-04] MEDS: MORPHINE 4 MG/ML INJ IV (03:31)
== END 2021-08-04 04:59 | disposition home or self-care (01) ==
PROVIDERS: Emergency Provider Emergency Medicine; Family Provider Obstetrics & Gynecology; PCP Physician Assistant
DX: R51.9 Headache, unspecified (principal); R10.11 Right upper quadrant pain; R03.0 Elevated blood-pressure reading, without diagnosis of hypertension; Z88.5 Allergy status to narcotic agent
CPT/HCPCS: 36415; 71045; 80053; 82550; 82553; 83690; 83735; 84484; 85025; 93005; 93010; 96374; 99284; J2270

== ENCOUNTER 2021-08-27 18:08 | Emergency (ER) | payer OTHER, SELFPAY ==
[2021-08-27] VITALS (23 sets, daily range): BP systolic 133–217; BP diastolic 74–114; PULSE 76–105; RESP 7–30; TEMP 37.1; O2SAT 95–100; BMI 36.6
--- NOTE | 2021-08-27 18:15 | DI.RAD.S_ITS ---
PROCEDURE: XR CHEST 1V INDICATIONS: HTN TECHNIQUE: One view of the chest was acquired. COMPARISON: [facility], CR, XR CHEST 1V, 08/04/2021, 0:14. FINDINGS: Surgical changes and devices: None. Lungs and pleura: Lungs are clear. No pleural effusions or pneumothorax. Mediastinum: Mediastinal contours appear normal. Heart size is normal. Bones and chest wall: No suspicious bony lesions. Overlying soft tissues appear unremarkable. IMPRESSION: No acute cardiopulmonary disease process. Dictated by: Disha Chau MD, PhD on 08/27/2021 at 18:49 Approved by: Disha Chau MD, PhD on 08/27/2021 at 18:50
--- NOTE | 2021-08-27 18:19 | DI.CT.S_ITS ---
PROCEDURE: CT HEAD/BRAIN WO CON INDICATIONS: HTN emergency, SCHMITZ, extrem tingling TECHNIQUE: Noncontrast 4.5 mm thick angled axial sections acquired from the foramen magnum to the vertex, with coronal and sagittal reformats. For radiation dose reduction, the following was used: automated exposure control, adjustment of mA and/or kV according to patient size. COMPARISON: [facility], CT, HEAD WITHOUT CONTRAST, 07/05/2014, 12:48. FINDINGS: Image quality: Excellent. CSF spaces: Basal cisterns are patent. No extra-axial fluid collections. Ventricles are normal in size and shape. Brain: No midline shift. No intracranial masses or hemorrhage. Baptiste-white matter interface is normal. Skull and face: Calvarium and visualized facial bones are intact, without suspicious lesions. Sinuses: Visualized sinuses and mastoids are clear. IMPRESSION: Unremarkable CT brain. No intracranial hemorrhage or mass effect. Approved by: Lauro Tinajero M.D. on 08/27/2021 at 17:45
--- NOTE | 2021-08-27 18:37 | PC.NURSE ---
reports bottom of left foot is numb and tingling. hx cauda equina
[2021-08-27 18:38] LABS: Add Manual Diff / Slide Review NO; Basophils Absolute Auto 100 /uL (0-100); Basophils Percent Auto 1.3 % (0-2); Eosinophils Absolute Auto 200 /uL (0-450); Hematocrit 43.5 % (36-46); Hemoglobin 14.9 g/dL (12.0-16.0); Lymphocytes Absolute Auto 2800 /uL (1100-4500); Lymphocytes Percent Auto 33.2 % (25-40); Mean Corpuscular HGB Conc 34.3 % (30-36); Mean Corpuscular Hemoglobin 29.8 PG (26-34); Mean Corpuscular Volume 86.7 fL (80-100); Monocytes Absolute Auto 600 /uL (0-900); Monocytes Percent Auto 7.8 % (3-14); Neutrophils Absolute Auto 4700 /uL (1500-7000); Neutrophils Percent Auto 55.7 % (50-75); Platelet Count 260 X10^3/uL (150-400); Red Blood Cell Count 5.01 X10^6/uL (4.0-5.2); Red Cell Distribution Width 13.2 % (11.6-14.8); White Blood Cell Count 8.3 X10^3/uL (4.5-11.0)
[2021-08-27 18:53] LABS: Alanine Aminotransferase 47 IU/L (<35); Albumin 4.8 g/dL (3.5-5.0); Albumin Globulin Ratio 1.3 (1.0-2.8); Alkaline Phosphatase 59 U/L (38-126); Aspartate Aminotransferase 40 IU/L (14-36); BUN Creatinine Ratio 23.6 (6-22); Bilirubin Total 0.5 mg/dL (0.2-1.3); Blood Urea Nitrogen 17 mg/dL (7-17); Calcium 9.5 mg/dL (8.4-10.2); Carbon Dioxide 25 mmol/L (22-32); Chloride 101 mmol/L (98-107); Creatine Kinase 121 U/L (30-135); Estimated Glomerular Filt Rate > 60 mL/min (>60); Globulin 3.6 g/dL (1.7-4.1); Glucose 107 mg/dL (70-100); HEMOLYSIS 32 (0-50); Potassium 4.1 mmol/L (3.4-5.1); Sodium 140 mmol/L (137-145); Total Protein 8.4 g/dL (6.3-8.2)
--- NOTE | 2021-08-27 18:58 | ED.GENADULT ---
HPI - General Adult General Chief complaint: Hypertension Stated complaint: High blood pressure, losing sensation extremeties Time Seen by Provider: 08/27/21 18:12 Source: patient Mode of arrival: Ambulatory History of Present Illness HPI narrative: 45F nonsmoker with history of hypertension, hyperlipidemia, headaches, reversible cerebral vasoconstriction syndrome and surgery for cauda equina in 2020 at the [facility] presents with a chief complaint of elevated blood pressure, headache and some tingling in her left foot. She denies any chest pain or shortness of breath. She has no nausea or vomiting. She denies any loss of control of bowel or bladder, lower extremity weakness, footdrop but does have some tingling on the bottom of her left foot. She denies any recent fall, trauma or injury, neck pain nor fever. She denies neurologic symptoms such as blurred vision, trouble speech or balance issues. She denies any change in her medications. Related Data Home Medications Medication Instructions Recorded Confirmed hydrocodone 5 mg-acetaminophen 300 1 tab PO Q4HP PRN #0 01/18/16 11/28/17 mg tablet (Vicodin) atorvastatin 20 mg tablet (Lipitor) 20 mg PO QDAY #0 02/04/16 11/28/17 epinephrine 0.3 mg/0.3 mL 0.3 mg IM PRN PRN 11/14/17 11/14/17 injection, auto-injector (EpiPen) fluoxetine 40 mg capsule 40 mg PO DAILY 11/14/17 11/28/17 verapamil 180 mg 24 hr 180 mg PO BEDTIME 11/14/17 11/28/17 capsule,extended release Previous Rx's Medication Instructions Recorded hydroxyzine pamoate 25 mg capsule 25 mg PO Q4HR PRN #40 cap 11/28/17 oxycodone 5 mg tablet 5 mg PO Q3HR PRN #40 tab 11/28/17 cyclobenzaprine 10 mg tablet 10 mg PO TID PRN #20 tab 09/09/19 oxycodone-acetaminophen 5 mg-325 1 tab PO Q4-6H PRN #10 tab 09/10/20 mg tablet (Percocet) Allergies Allergy/AdvReac Type Severity Reaction Status Date / Time amoxicillin [AMOXICILLIN] Allergy Severe HIVES Verified 08/27/21 18:21 NSAIDS (Non-Steroidal Allergy Severe cerebral Verified 08/27/21 18:21 Anti-Inflamma vasoconstrictive syndrome rizatriptan [From Maxalt] Allergy Severe cerebral Verified 08/27/21 18:21 vasoconstrive syndrome Sulfa (Sulfonamide Allergy Severe HIVES Verified 08/27/21 18:21 Antibiotics) [SULFA (SULFONAMIDE ANTIBIOTICS)] tree nut Allergy Severe Anaphylaxis Verified 08/27/21 18:21 walnut Allergy Severe Anaphylaxis Verified 08/27/21 18:21 hydromorphone [From Dilaudid] AdvReac Severe Vomiting Verified 08/27/21 18:21 vasoconstrictive meds Allergy Uncoded 08/27/21 18:21 Review of Systems Review of Systems Narrative: GENERAL: Denies chills, fatigue, malaise, fever, sweats. HEENT: Denies sinus pain, ear pain, sore throat, difficulty swallowing, dizziness. RESPIRATORY: Denies dyspnea, cough, wheezing, hemoptysis, sputum. CARDIOVASCULAR: Denies chest pain, palpitations, orthopnea, edema, GASTROINTESTINAL: Denies nausea, vomiting, abdominal pain, diarrhea, constipation, melena. : Denies dysuria, frequency, incontinence, hematuria, urinary retention. MUSCULOSKELETAL: denies weakness, joint pain, or bony pain SKIN: Denies rash, skin lesions, or other NEUROLOGIC: See HPI PSYCHIATRIC: No concerning psychosocial issues. 12 point review of systems is negative except for those stated above Patient History Medical History Anisocoria Chronic thoracic spine pain Depression Hirsutism Migraine with aura MRSA (methicillin resistant Staphylococcus aureus) Numbness of right hand Osteoarthritis PCOS (polycystic ovarian syndrome) Reversible cerebrovascular vasoconstriction syndrome Right shoulder pain Surgical History Status post breast reduction Status post knee surgery Social History household members: spouse and children Smoking Status: Never smoker Smoking Status: Never smoker alcohol intake frequency: other Substance Use Type: does not use Exam Narrative Exam Narrative: GENERAL: [45 year old patient appears stated age. Well-developed patient, in mild distress. Rubbing her left episcopal, clearly uncomfortable HEAD: Atraumatic. Normocephalic. EYES: Pupils equal round and reactive. Extraocular motions intact. No scleral icterus. No injection or drainage. ENT: Nose without bleeding, purulent drainage. Throat without erythema, tonsillar hypertrophy or exudate. Airway patent. NECK: Trachea midline. Non tender CARDIOVASCULAR: Regular rate and rhythm without murmurs, gallops, or rubs. RESPIRATORY: Clear to auscultation. Breath sounds equal bilaterally. No wheezes, rales, or rhonchi. GASTROINTESTINAL: Abdomen soft, non-tender, nondistended. EXTREMITIES: No edema or joint tenderness. 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 Patient exam notes decreased range of motion and muscle spasm, but no CVA tenderness, or vertebral point tenderness. There are no symptoms of cauda equina such as saddle anesthesia, and decreased reflexes, decreased sensation or strength. NEURO: AOx3. SKIN: No rash or erythema of visible areas Initial Vital Signs Initial Vital Signs: Vital Signs Temperature 98.7 F 08/27/21 18:17 Pulse Rate 103 H 08/27/21 18:17 Respiratory Rate 16 08/27/21 18:17 Blood Pressure 217/114 H 08/27/21 18:17 Pulse Oximetry 98 08/27/21 18:17 Course Orders Ordered: ED Orders 08/27/21 18:15 XR chest 1V Stat EKG-12 Lead Stat 08/27/21 18:19 CT head/brain wo con Stat 08/27/21 18:20 Complete Blood Count AUTO DIFF Stat Comprehensive Metabolic Panel Stat Magnesium Stat NT-proBNP (BNP-Adult 18+) Stat Troponin & CK Cardiac Panel Stat Discontinued Medications Acetaminophen (Acetaminophen 325 Mg Tablet) 650 mg PO NOW ONE Stop: 08/27/21 19:22 Last Admin: 08/27/21 19:30 Dose: 650 mg Documented by: JEWELL Nicardipine HCl 25 mg/ Sodium (Chloride) 250 mls @ 50 mls/hr IV TITRATE BLACK; Protocol Last Titration: 08/27/21 21:35 Dose: 0 mg/hr, 0 mls/hr Documented by: Titration: 08/27/21 20:24 Dose: 0 mg/hr, 0 mls/hr Documented by: Admin: 08/27/21 20:11 Dose: 5 mg/hr, 50 mls/hr Documented by: JEWELL Labetalol HCl (Labetalol 20 Mg/4 Ml Syringe) 20 mg IV NOW ONE Stop: 08/27/21 19:22 Last Admin: 08/27/21 19:31 Dose: 20 mg Documented by: JEWELL Morphine Sulfate (Morphine 4 Mg/Ml Inj) 4 mg IV NOW ONE Stop: 08/27/21 20:19 Last Admin: 08/27/21 20:27 Dose: 4 mg Documented by: JEWELL Ondansetron HCl (Ondansetron 4 Mg/2 Ml Inj) 4 mg IV NOW ONE Stop: 08/27/21 19:22 Last Admin: 08/27/21 19:30 Dose: 4 mg Documented by: JEWELL Reevaluation(s) Reevaluation #1: Patient had very little change if any to the labetalol, if anything her blood pressure seems to be higher. She states that she has been told by her neurologist that she cannot take any of the classic migraine medications nor can she take NSAIDs given her underlying neurologic diagnoses. Her blood pressure is still elevated, given her tolerance and routine administration of for Verapamill, will order nicardipine at 5 mg Reevaluation #2: patient felt jittery and weird on Nicardipine, asked us to stop it. At this point she still is hypertensive and tylenol has done little to help her SCHMITZ. She states that on prior visits she has had pain be the driving force behind HTN and once her pain is controlled with medications her BP follows. Morphine ordered Reevaluation #3: Patient has significant if not complete resolution of symptoms after administration of morphine, blood pressure improves to the 140s, she is otherwise asymptomatic Vital Signs Vital signs: Vital Signs - 8 hr 08/27/21 18:17 08/27/21 18:46 08/27/21 18:49 Temperature 98.7 F Pulse Rate 105 H 95 H 93 H Respiratory Rate 16 30 H Blood Pressure 217/114 H 207/111 H Pulse Oximetry 96 98 98 08/27/21 19:00 08/27/21 19:30 08/27/21 19:36 Temperature Pulse Rate 96 H 89 92 H Respiratory Rate 17 13 22 Blood Pressure 195/113 H 182/90 H Pulse Oximetry 98 98 99 08/27/21 19:37 08/27/21 19:56 08/27/21 20:00 Temperature Pulse Rate 85 87 85 Respiratory Rate 11 L 14 16 Blood Pressure 186/90 H 194/106 H 184/105 H Pulse Oximetry 100 100 96 08/27/21 20:19 08/27/21 20:30 08/27/21 20:40 Temperature Pulse Rate 97 H 83 85 Respiratory Rate 30 H 10 L 14 Blood Pressure 192/107 H 170/97 H Pulse Oximetry 95 98 97 08/27/21 21:00 08/27/21 21:20 08/27/21 21:30 Temperature Pulse Rate 80 79 80 Respiratory Rate 7 L 8 L 9 L Blood Pressure 161/89 H 152/77 H Pulse Oximetry 98 99 98 08/27/21 21:40 08/27/21 22:00 08/27/21 22:20 Temperature Pulse Rate 82 80 80 Respiratory Rate 13 11 L 8 L Blood Pressure 148/84 H 133/74 138/75 Pulse Oximetry 97 98 98 08/27/21 22:30 08/27/21 22:40 08/27/21 23:00 Temperature Pulse Rate 80 82 80 Respiratory Rate 10 L 12 10 L Blood Pressure 153/80 H 164/76 H Pulse Oximetry 96 98 97 08/27/21 23:20 08/27/21 23:30 Temperature Pulse Rate 76 81 Respiratory Rate 8 L 12 Blood Pressure 140/78 Pulse Oximetry 98 98 Medical Decision Making Lab Data Result diagrams: 08/27/21 18:20 08/27/21 18:20 Labs: Lab Results 08/27/21 08/27/21 Range/Units 18:20 18:20 WBC 8.3 (4.5-11.0) X10^3/uL RBC 5.01 (4.0-5.2) X10^6/uL Hgb 14.9 (12.0-16.0) g/dL Hct 43.5 (36-46) % MCV 86.7 (80-100) fL MCH 29.8 (26-34) PG MCHC 34.3 (30-36) % RDW 13.2 (11.6-14.8) % Plt Count 260 (150-400) X10^3/uL Neut % (Auto) 55.7 (50-75) % Lymph % (Auto) 33.2 (25-40) % Greenlee % (Auto) 7.8 (3-14) % Eos % (Auto) 2.0 (2-4) % Baso % (Auto) 1.3 (0-2) % Neut # (Auto) 4700 (7916-2971) /uL Lymph # (Auto) 2800 (6417-5284) /uL Greenlee # (Auto) 600 (0-900) /uL Eos # (Auto) 200 (0-450) /uL Baso # (Auto) 100 (0-100) /uL Sodium 140 (137-145) mmol/L Potassium 4.1 (3.4-5.1) mmol/L Chloride 101 (98-107) mmol/L Carbon Dioxide 25 (22-32) mmol/L BUN 17 (7-17) mg/dL Creatinine 0.72 (0.52-1.04) mg/dL Estimated GFR > 60 (>60) mL/min BUN/Creatinine Ratio 23.6 H (6-22) Glucose 107 H (70-100) mg/dL Calcium 9.5 (8.4-10.2) mg/dL Magnesium 2.0 (1.6-2.3) mg/dL Total Bilirubin 0.5 (0.2-1.3) mg/dL AST 40 H (14-36) IU/L ALT 47 H (<35) IU/L Alkaline Phosphatase 59 (38-126) U/L Total Creatine Kinase 121 (30-135) U/L CK-MB (CK-2) 3.18 H (<2.37) ng/mL CK-MB (CK-2) Rel Index 2.6 (1.5-5.0) % Troponin I < 0.012 (0.01-0.034) ng/mL NT-Pro-B Natriuret Pep 36 (<125) pg/mL Total Protein 8.4 H (6.3-8.2) g/dL Albumin 4.8 (3.5-5.0) g/dL Globulin 3.6 (1.7-4.1) g/dL Albumin/Globulin Ratio 1.3 (1.0-2.8) Imaging Data CT scan - head: Radiologist's Impression: [address] [address] [address] Scan Report Signed Patient: Nelson Spicer MR#: [id number] : 1975 Acct:[id number] Age/Sex: 45 / F Date of Service: 08/27/21 Loc: ED Accession Number: [id number] ?? Procedure: CT head/brain wo con Ordering Provider: Williams Peres D.O. PROCEDURE:? CT HEAD/BRAIN WO CON ? INDICATIONS:? HTN emergency, SCHMITZ, extrem tingling ? TECHNIQUE:? Noncontrast 4.5 mm thick angled axial sections acquired from the foramen magnum to the vertex, with coronal and sagittal reformats.? For radiation dose reduction, the following was used:? automated exposure control, adjustment of mA and/or kV according to patient size.? ? COMPARISON:? [facility], CT, HEAD WITHOUT CONTRAST, 07/05/2014, 12:48. ? FINDINGS:? Image quality:? Excellent.? ? CSF spaces:? Basal cisterns are patent.? No extra-axial fluid collections.? Ventricles are normal in size and shape.? ? Brain:? No midline shift.? No intracranial masses or hemorrhage.? Baptiste-white matter interface is normal.? ? Skull and face:? Calvarium and visualized facial bones are intact, without suspicious lesions.? ? Sinuses:? Visualized sinuses and mastoids are clear.? ? IMPRESSION:? Unremarkable CT brain.? No intracranial hemorrhage or mass effect.? Approved by: Lauro Tinajero M.D. on 08/27/2021 at 17:45? Chest x-ray: Radiologist's Impression: Nelson Spicer??45??F??1975 ? Allergy/Adv: amoxicillin, NSAIDS (Non-Steroidal Anti-Inflamma, rizatriptan, Sulfa (Sulfonamide Antibiotics), tree nut, walnut, hydromorphone, [vasoconstrictive meds] (More??) Close Head CT (Signed) Lauro Tinajero - 08/27/21 Chest X-Ray (Signed) Disha Chau - 08/27/21 Chest X-Ray (Signed) Jack Olvera - 08/04/21 Mammogram Diagnostic (Signed) Deric Espinosa - 05/07/20 Cervical Spine MRI (Signed) Pierre Bingham - 03/25/20 Cervical Spine MRI (Signed) Pierre Bingham - 09/11/[address] (Signed) Pierre Bingham - 09/09/19 Shoulder X-Ray (Signed) Stephanie Jacobs - 09/09/19 Clavicle X-Ray (Signed) Stephanie Jacobs - 09/09/19 Abdomen Ultrasound (Signed) Praful Jacobsley - 04/10/19 Pelvis X-Ray (Signed) King Barakat - 12/22/18 Abdomen X-Ray (Signed) King Barakat - 12/22/18 Pelvis Ultrasound (Signed) King Barakat - 12/18/18 Mammogram Diagnostic (Signed) Jack Olvera - 12/18/18 Mammogram Diagnostic (Signed) Iveth Crowe - 03/24/18 Breast Ultrasound (Signed) Iveth Crowe - 03/24/18 Launch?Image [address] [address] XRay Report Signed Patient: Nelson Spicer MR#: [id number] : 1975 Acct:[id number] Age/Sex: 45 / F Date of Service: 08/27/21 Loc: ED Accession Number: [id number] ?? Procedure: XR chest 1V Ordering Provider: Williams Peres D.O. PROCEDURE:? XR CHEST 1V ? INDICATIONS:? HTN ? TECHNIQUE:? One view of the chest was acquired.? ? COMPARISON:? [facility], CR, XR CHEST 1V, 08/04/2021, 0:14. ? FINDINGS:? ? Surgical changes and devices:? None.? ? Lungs and pleura:? Lungs are clear.? No pleural effusions or pneumothorax.? ? Mediastinum:? Mediastinal contours appear normal.? Heart size is normal.? ? Bones and chest wall:? No suspicious bony lesions.? Overlying soft tissues appear unremarkable.? ? IMPRESSION:? No acute cardiopulmonary disease process. ? ? Dictated by: Disha Chau MD, PhD on 08/27/2021 at 18:49 ?? ECG Data Interpretation: EKG is normal sinus rhythm rate [ 86] and free of any signs of ischemia or ectopy. No ST segmental elevation or depression. No T wave inversions MDM Narrative Medical decision making narrative: Headache considerations include, but not limited to: Subarachnoid hemorrhage, but unlikely as patient denies sudden onset of pain, not worst of life, or neck pain Meningitis considered, but thought unlikely given lack of Brudzinski's, Kernig's sign, altered mental status or fever Giant cell arteritis considered, but thought unlikely given lack of unilateral findings, pain in episcopal, vision change HTN Emergency considered possibility given HTN Other serious diagnoses considered unlikely given lack of red flag findings such as sudden onset, increasing frequency, immunocompromise, systemic signs (fever, chills, stiff neck, or rash), focal neurologic findings, trauma, blood thinners, etc. Patient's symptoms improved over duration of stay with above-stated therapies. Findings and discharge diagnosis discussed with patient/family followed by verbalization of understanding Return precautions discussed with patient/family whom verbalize understanding. Discharge Plan Departure Patient Disposition: Home Clinical Impression: Hypertension, Headache Instructions: DI for High Blood Pressure Activity Restrictions/Additional Instructions: * *You have been diagnosed with [ Headache ] *What to do: *Take medications as directed *Follow up with your primary care provider in 2-3 days, call for an appointment. Let them know you were seen in the Emergency Department and that we ask that you be seen in follow up *Return to ER if you should have any new, worsening or concerning symptoms, such as [ fever > 101F, neck pain or stiffness, vomiting, confusion, seizure, focal weakness, vision change, speech deficit or other concerning symptoms ] Prescriptions: No Action hydrocodone-acetaminophen [Vicodin] 5 MG/300 MG tablet 1 tab PO Q4HP PRN (Reason: PAIN) Qty: 0 0RF atorvastatin [Lipitor] 20 MG tablet 20 mg PO QDAY Qty: 0 0RF fluoxetine 40 mg Capsule 40 mg PO DAILY 0RF verapamil 180 mg Capsule,Ext Rel. Pellets 24 Hr 180 mg PO BEDTIME 0RF epinephrine [EpiPen] 0.3 mg/0.3 mL Auto-Injector 0.3 mg IM PRN PRN (Reason: Anaphylaxis) 0RF oxycodone 5 mg Tablet 5 mg PO Q3HR PRN (Reason: Pain, Moderate) Qty: 40 0RF hydroxyzine pamoate 25 mg Capsule 25 mg PO Q4HR PRN (Reason: Muscle Spasm) Qty: 40 0RF cyclobenzaprine 10 mg tablet 10 mg PO TID PRN (Reason: muscle spasm) Qty: 20 0RF oxycodone-acetaminophen [Percocet] 5-325 mg tablet 1 tab PO Q4-6H PRN (Reason: pain) Qty: 10 0RF Referrals: Stephanie Truong PA-C [Primary Care Provider] -
[2021-08-27 19:04] LABS: NT-proBNP (BNP-Adult 18+) 36 pg/mL (<125); Troponin I < 0.012 ng/mL (0.01-0.034)
[2021-08-27 19:07] LABS: CKMB % Relative Index 2.6 % (1.5-5.0); Creatine Kinase MB 3.18 ng/mL (<2.37)
[2021-08-27] MEDS: ONDANSETRON 4 MG/2 ML INJ IV (19:30)
[2021-08-27] MEDS: ACETAMINOPHEN 325 MG TABLET 650 MG PO (19:30)
[2021-08-27] MEDS: LABETALOL 20 MG/4 ML SYRINGE IV (19:31)
[2021-08-27] MEDS: NICARDIPINE 25 MG in SODIUM CHLORIDE 0.9% 240 ML 50 ML IV (20:11)
[2021-08-27] MEDS: MORPHINE 4 MG/ML INJ IV (20:27)
--- NOTE | 2021-08-27 20:55 | PC.NURSE ---
pt resting with eyes closed resp even and unlabored
== END 2021-08-27 23:49 | disposition home or self-care (01) ==
PROVIDERS: Emergency Provider Emergency Medicine; Family Provider Obstetrics & Gynecology; PCP Physician Assistant
DX: I10 Essential (primary) hypertension (principal); R51.9 Headache, unspecified; R20.2 Paresthesia of skin
CPT/HCPCS: 36415; 70450; 71045; 80053; 82550; 82553; 83735; 83880; 84484; 85025; 93005; 96374; 96375; 99284; 99285; J2270; J2405

== ENCOUNTER → 2021-10-07 19:32 | Outpatient (CLI) | payer OTHER, SELFPAY ==
--- NOTE | 2021-10-07 | DI.MRI.S_ITS ---
PROCEDURE: MR CERVICAL SPINE WO CON INDICATIONS: cervical disc disorder at C5-C6 level with myelopa TECHNIQUE: Noncontrast sagittal T1 spin echo and T2 fast spin echo, sagittal STIR, foraminal oblique sagittal T2 fast spin echo, and axial gradient echo or T2 fast spin echo through the cervical spine. COMPARISON: None. FINDINGS: Image quality: Excellent. Alignment and Curvature: There is normal bony alignment. Bones: Status post C4-C5 ACDF. Spinal Cord: Visualized spinal cord has normal size and signal. No cerebellar tonsillar herniation. Paraspinous Soft Tissues: No paravertebral masses. Prevertebral soft tissues are normal in thickness. C2-C3: Loss of disc signal. Moderate right mild left facet hypertrophy. Mild narrowing of the central canal. Moderate right and mild left neural foraminal narrowing. No neural compression. C3-C4: Loss of disc signal. Mild, diffuse disc bulge. Mild bilateral facet hypertrophy. Severe right uncovertebral joint hypertrophy. Moderate narrowing of the central canal. Severe right and moderate left neural foraminal narrowing with compression of the exiting right C4 nerve root. C4-C5: Status post fusion. Small left central posterior osteophyte. Mild bilateral facet hypertrophy. Mild narrowing of the central canal. Severe bilateral neural foraminal narrowing with compression of the exiting C5 nerve roots. C5-C6: Loss of disc signal and slight loss of disc height. Moderate, diffuse disc bulge. Severe narrowing of the central canal with mild compression of the cervical spinal cord. Mild bilateral facet hypertrophy. Moderate bilateral uncovertebral joint hypertrophy. Severe bilateral neural foraminal narrowing with compression of the exiting C6 nerve roots. C6-C7: Loss of disc signal. Moderate, diffuse disc bulge. Severe narrowing of the central canal with slight compression of the cervical spinal cord. Mild bilateral facet hypertrophy. Moderate bilateral uncovertebral joint hypertrophy. Moderate right and severe left neural foraminal narrowing with compression of the exiting left C6 nerve root. C7-T1: Loss of disc signal. Mild, diffuse disc bulge. Mild narrowing of the central canal. No neural foraminal narrowing. No neural compression IMPRESSION: 1. C4-C5 ACDF. 2. Multilevel degenerative disc disease. 3. Multilevel facet and uncovertebral arthropathy. 4. Severe C5-C6 and C6-C7 central canal narrowing with compression of the cervical spinal cord. 5. Severe bilateral C4-C5 and C5-C6 neural foraminal narrowing with compression of the exiting bilateral C5 and C6 nerve roots. Severe right C3-C4 neural foraminal narrowing with compression of the exiting right C4 nerve root. Severe left C6-C7 neural foraminal narrowing with compression of the exiting left C6 nerve root. Dictated by: Disha Chau MD, PhD on 10/08/2021 at 9:36 Approved by: Disha Chau MD, PhD on 10/08/2021 at 9:41
== END ==
PROVIDERS: Family Provider Obstetrics & Gynecology; PCP Physician Assistant; Referring Provider Physician Assistant; Visit Provider Physician Assistant
DX: M50.01 Cervical disc disorder with myelopathy, high cervical region (principal); M47.12 Other spondylosis with myelopathy, cervical region; M48.02 Spinal stenosis, cervical region; Z98.1 Arthrodesis status
CPT/HCPCS: 72141

== ENCOUNTER 2022-09-07 11:24 | Emergency (ER) | payer OTHER, SELFPAY ==
[2022-09-07] VITALS (16 sets, daily range): BP systolic 123–156; BP diastolic 60–113; PULSE 72–129; RESP 29; TEMP 36.6; O2SAT 91–99; BMI 31.6
[2022-09-07 12:01] LABS: Add Manual Diff / Slide Review NO; Basophils Absolute Auto 100 /uL (0-100); Basophils Percent Auto 0.9 % (0-2); Eosinophils Absolute Auto 200 /uL (0-450); Eosinophils Percent Auto 1.5 % (2-4); Hematocrit 46.4 % (36-46); Hemoglobin 16.4 g/dL (12.0-16.0); Lymphocytes Absolute Auto 3600 /uL (1100-4500); Lymphocytes Percent Auto 32.5 % (25-40); Mean Corpuscular HGB Conc 35.3 % (30-36); Monocytes Absolute Auto 500 /uL (0-900); Monocytes Percent Auto 4.4 % (3-14); Neutrophils Absolute Auto 6800 /uL (1500-7000); Neutrophils Percent Auto 60.7 % (50-75); Platelet Count 172 X10^3/uL (150-400); Red Blood Cell Count 5.46 X10^6/uL (4.0-5.2); Red Cell Distribution Width 13.5 % (11.6-14.8); White Blood Cell Count 11.1 X10^3/uL (4.5-11.0)
[2022-09-07 12:14] LABS: Alanine Aminotransferase 18 IU/L (<35); Albumin 4.9 g/dL (3.5-5.0); Albumin Globulin Ratio 1.3 (1.0-2.8); Alkaline Phosphatase 56 U/L (38-126); Aspartate Aminotransferase 27 IU/L (14-36); BUN Creatinine Ratio 10.3 (6-22); Blood Urea Nitrogen 7 mg/dL (7-17); Calcium 9.5 mg/dL (8.4-10.2); Carbon Dioxide 22 mmol/L (22-32); Chloride 104 mmol/L (98-107); Estimated Glomerular Filt Rate > 60 mL/min (>60); Globulin 3.9 g/dL (1.7-4.1); Glucose 94 mg/dL (70-100); Lipase 70 U/L (23-300); Sodium 137 mmol/L (137-145); Total Protein 8.8 g/dL (6.3-8.2)
[2022-09-07 12:15] LABS: HEMOLYSIS 117 (0-50); Potassium 4.8 mmol/L (3.4-5.1)
--- NOTE | 2022-09-07 12:26 | ED.ABDPAIN ---
HPI - Abdominal Pain General Chief Complaint: Abdominal Pain Stated Complaint: thinks she has rupurted ovarian cyst Time Seen by Provider: 09/07/22 12:16 History of Present Illness HPI narrative: Patient is a 46-year-old female history of vasoconstrictive disease takes verapamil history of ovarian cyst presents today with sudden onset of left sided pain. She states that she is had a dull ache for the last couple of days. However today started having severe left lower quadrant pain it is quite unbearable feeling a little bit nauseous. Denies any fever chills no abnormal vaginal bleeding Related Data Home Medications Medication Instructions Recorded Confirmed hydrocodone 5 mg-acetaminophen 300 1 tab PO Q4HP PRN PAIN ##0 01/18/16 11/28/17 mg tablet (Vicodin) atorvastatin 20 mg tablet (Lipitor) 20 mg PO QDAY ##0 02/04/16 11/28/17 epinephrine 0.3 mg/0.3 mL 0.3 mg IM PRN PRN Anaphylaxis 11/14/17 11/14/17 injection, auto-injector (EpiPen) fluoxetine 40 mg capsule 40 mg PO DAILY 11/14/17 11/28/17 verapamil 180 mg 24 hr 180 mg PO BEDTIME 11/14/17 11/28/17 capsule,extended release Previous Rx's Medication Instructions Recorded hydroxyzine pamoate 25 mg capsule 25 mg PO Q4HR PRN Muscle Spasm #40 11/28/17 caps oxycodone 5 mg tablet 5 mg PO Q3HR PRN Pain, Moderate 11/28/17 #40 tabs cyclobenzaprine 10 mg tablet 10 mg PO TID PRN muscle spasm #20 09/08/20 tabs oxycodone-acetaminophen 5 mg-325 1 tab PO Q4-6H PRN pain #10 tabs 09/10/20 mg tablet (Percocet) ciprofloxacin HCl 500 mg tablet 500 mg PO BID #14 tabs 09/07/22 (Cipro) hydrocodone 5 mg-acetaminophen 325 1 tab PO Q6H PRN pain #10 tabs 09/07/22 mg tablet metronidazole 500 mg tablet 500 mg PO Q8H 7 days #21 tabs 09/07/22 Allergies Allergy/AdvReac Type Severity Reaction Status Date / Time amoxicillin [AMOXICILLIN] Allergy Severe HIVES Verified 09/07/22 12:28 NSAIDS (Non-Steroidal Allergy Severe cerebral Verified 09/07/22 12:28 Anti-Inflamma vasoconstrictive syndrome rizatriptan [From Maxalt] Allergy Severe cerebral Verified 09/07/22 12:28 vasoconstrive syndrome Sulfa (Sulfonamide Allergy Severe HIVES Verified 09/07/22 12:28 Antibiotics) [SULFA (SULFONAMIDE ANTIBIOTICS)] tree nut Allergy Severe Anaphylaxis Verified 09/07/22 12:28 walnut Allergy Severe Anaphylaxis Verified 09/07/22 12:28 hydromorphone [From Dilaudid] AdvReac Severe Vomiting Verified 09/07/22 12:28 vasoconstrictive meds Allergy Uncoded 09/07/22 12:28 Review of Systems Review of Systems ROS Unobtainable: All systems reviewed & are unremarkable except as noted in HPI and below Patient History Medical History (Updated 09/07/22 @ 17:07 by Wendy Aleman DO) Anisocoria Chronic thoracic spine pain Depression Hirsutism Migraine with aura MRSA (methicillin resistant Staphylococcus aureus) Numbness of right hand Osteoarthritis PCOS (polycystic ovarian syndrome) Reversible cerebrovascular vasoconstriction syndrome Right shoulder pain Surgical History Status post breast reduction Status post knee surgery Social History household members: spouse and children Smoking Status: Never smoker Smoking Status: Never smoker alcohol intake frequency: other Substance Use Type: does not use Exam Initial Vital Signs Initial Vital Signs: Vital Signs Temperature 97.9 F 09/07/22 11:30 Pulse Rate 129 H 09/07/22 11:30 Respiratory Rate 29 H 09/07/22 11:30 Blood Pressure 156/113 H 09/07/22 11:30 Pulse Oximetry 97 09/07/22 11:30 Oxygen Delivery Method Room Air 09/07/22 11:30 GENERAL: Alert 46-year-old female appears quite uncomfortable HEENT: Head atraumatic,EOMI, pupils reactive, face symmetric, moist mucous membranes CARDIOVASCULAR: Regular rate and rhythm without murmurs, rubs or gallops. RESPIRATORY: Breath sounds equal bilaterally, no wheezes rales or rhonchi. ABDOMEN: Soft, very tender left lower quadrant pain EXTREMITIES: Normal range of motion, no clubbing or edema. Neurovascularly intact NEUROLOGICAL: Alert and oriented x4. SKIN: Warm, dry, no laceration, no petechiae, no rashes or lesions. Course Orders Ordered: ED Orders 09/07/22 11:51 Complete Blood Count AUTO DIFF Stat Comprehensive Metabolic Panel Stat Lipase Stat 09/07/22 12:36 US pelvic complete Stat 09/07/22 13:00 Urinalysis and Microscopic Stat Urine Culture Stat 09/07/22 16:19 CT abdomen pelvis w con Stat Discontinued Medications Acetaminophen (Acetaminophen 325 Mg Tablet) 650 mg PO NOW ONE Stop: 09/07/22 17:13 Hydromorphone HCl (Hydromorphone 0.5 Mg Inj) 0.5 mg IV NOW ONE Stop: 09/07/22 16:04 Last Admin: 09/07/22 16:11 Dose: 0.5 mg Documented By: NR Morphine Sulfate (Morphine 4 Mg/Ml Inj) 4 mg IV NOW ONE Stop: 09/07/22 12:27 Last Admin: 09/07/22 12:36 Dose: 4 mg Documented By: NR Morphine Sulfate (Morphine 4 Mg/Ml Inj) 4 mg IV NOW ONE Stop: 09/07/22 13:37 Last Admin: 09/07/22 14:10 Dose: 4 mg Documented By: NR Morphine Sulfate (Morphine 2 Mg/Ml Inj) 2 mg IV NOW ONE Stop: 09/07/22 17:21 Last Admin: 09/07/22 17:34 Dose: 2 mg Documented By: NR Ondansetron HCl (Ondansetron 4 Mg Odt) 4 mg PO NOW PRN PRN Reason: Nausea And Vomiting Ondansetron HCl (Ondansetron 4 Mg/2 Ml Inj) 4 mg IV NOW PRN PRN Reason: Nausea And Vomiting Last Admin: 09/07/22 12:38 Dose: 4 mg Documented By: NR Ondansetron HCl (Ondansetron 4 Mg/2 Ml Inj) 4 mg IV NOW ONE Stop: 09/07/22 12:37 Last Admin: 09/07/22 12:47 Dose: Not Given Documented By: NR Vital Signs Vital signs: Vital Signs - 8 hr 09/07/22 11:30 09/07/22 11:43 09/07/22 11:44 Temperature 97.9 F Pulse Rate 129 H 126 H Respiratory Rate 29 H Blood Pressure 156/113 H 156/113 H Pulse Oximetry 97 97 Oxygen Delivery Method Room Air 09/07/22 11:44 09/07/22 12:39 09/07/22 13:17 Temperature Pulse Rate 126 H 98 H 106 H Respiratory Rate Blood Pressure Pulse Oximetry 95 99 94 Oxygen Delivery Method 09/07/22 13:30 09/07/22 14:00 09/07/22 14:07 Temperature Pulse Rate 103 H 105 H 110 H Respiratory Rate Blood Pressure Pulse Oximetry 93 93 94 Oxygen Delivery Method 09/07/22 14:07 09/07/22 14:30 09/07/22 14:30 Temperature Pulse Rate 85 Respiratory Rate Blood Pressure 136/82 133/74 Pulse Oximetry 93 Oxygen Delivery Method 09/07/22 15:00 09/07/22 15:00 09/07/22 15:30 Temperature Pulse Rate 82 Respiratory Rate Blood Pressure 129/68 127/73 Pulse Oximetry 93 Oxygen Delivery Method 09/07/22 15:30 09/07/22 16:00 09/07/22 16:00 Temperature Pulse Rate 72 79 Respiratory Rate Blood Pressure 123/60 Pulse Oximetry 95 94 Oxygen Delivery Method 09/07/22 16:30 09/07/22 17:00 09/07/22 17:30 Temperature Pulse Rate 77 87 86 Respiratory Rate Blood Pressure Pulse Oximetry 91 94 96 Oxygen Delivery Method 09/07/22 17:57 09/07/22 17:57 Temperature Pulse Rate 86 Respiratory Rate Blood Pressure 145/88 H Pulse Oximetry 97 Oxygen Delivery Method MDM - Abdominal Pain Lab Data 09/07/22 11:51 09/07/22 11:51 Labs: Lab Results 09/07/22 09/07/22 09/07/22 Range/Units 11:51 11:51 13:00 WBC 11.1 H (4.5-11.0) X10^3/uL RBC 5.46 H (4.0-5.2) X10^6/uL Hgb 16.4 H (12.0-16.0) g/dL Hct 46.4 H (36-46) % MCV 85.0 (80-100) fL MCH 30.0 (26-34) PG MCHC 35.3 (30-36) % RDW 13.5 (11.6-14.8) % Plt Count 172 (150-400) X10^3/uL Neut % (Auto) 60.7 (50-75) % Lymph % (Auto) 32.5 (25-40) % [place] % (Auto) 4.4 (3-14) % Eos % (Auto) 1.5 L (2-4) % Baso % (Auto) 0.9 (0-2) % Neut # (Auto) 6800 (0573-9545) /uL Lymph # (Auto) 3600 (2439-6046) /uL [place] # (Auto) 500 (0-900) /uL Eos # (Auto) 200 (0-450) /uL Baso # (Auto) 100 (0-100) /uL Sodium 137 (137-145) mmol/L Potassium 4.8 (3.4-5.1) mmol/L Chloride 104 (98-107) mmol/L Carbon Dioxide 22 (22-32) mmol/L BUN 7 (7-17) mg/dL Creatinine 0.68 (0.52-1.04) mg/dL Estimated GFR > 60 (>60) mL/min BUN/Creatinine Ratio 10.3 (6-22) Glucose 94 (70-100) mg/dL Calcium 9.5 (8.4-10.2) mg/dL Total Bilirubin 1.0 (0.2-1.3) mg/dL AST 27 (14-36) IU/L ALT 18 (<35) IU/L Alkaline Phosphatase 56 (38-126) U/L Total Protein 8.8 H (6.3-8.2) g/dL Albumin 4.9 (3.5-5.0) g/dL Globulin 3.9 (1.7-4.1) g/dL Albumin/Globulin Ratio 1.3 (1.0-2.8) Lipase 70 (23-300) U/L Urine Color Yellow Urine Appearance Clear Urine pH 7.0 (4.5-8.0) Ur Specific [place] <=1.005 (1.000-1.035) Urine Protein Negative (Negative) Urine Glucose (UA) Negative (Negative) g/dL Urine Ketones Negative (NEGATIVE) Urine Occult Blood 2+ H (Negative) Urine Nitrate Negative (Negative) Urine Bilirubin Negative (NEGATIVE) Urine Urobilinogen 0.2 (0.2) E.U./dL Ur Leukocyte Esterase 1+ H (NEGATIVE) Urine RBC 0-1/hpf (0-5/HPF) Urine WBC 5-10/hpf H (0-5/HPF) Ur Squamous Epith Cells 1-5 /hpf (0-5/HPF) Urine Bacteria Few (2-10) H (None) Ur Culture Indicated? Specimen cultured Point of care testing: Point of Care Testing Test Results Negative Imaging Data US - RAILWAYS ASSISTANT: Radiologist's Impression: PROCEDURE:? US PELVIC COMPLETE ? INDICATIONS:? LEFT PELVIC PAIN ? TECHNIQUE:? Real-time scanning was performed of the pelvic organs, with image documentation.? Additional endovaginal scanning was necessary due to incomplete visualization of the adnexal and endometrial structures by transabdominal scanning.? ? COMPARISON:? [facility], PELVIC COMPLETE, 12/18/2018, 13:40. ? FINDINGS:? ?? Uterus:? Uterus is anteverted and normal in size at 8.1 by 4 by 5.6 cm. The myometrium is homogeneous. ? The endometrium measures 6.5 mm combined thickness.? ? Ovaries:? Right ovary not visualized.? Left ovary measures 4.3 x 4.4 x 7.4 cm, and contains a 4.2 x 3.7 x 5.3 cm simple cyst.? Normal vascularity present.? No free fluid or adnexal mass. ? Other:? No pathologic free abdominal or pelvic fluid. ? ? IMPRESSION:? ? Left ovarian simple cyst, 5.3 cm. Nonvisualized right ovary. ? Approved by: Lauro Tinajero M.D. on 09/07/2022 at 14:43? CT scan - abdomen/pelvis: Radiologist's Impression: PROCEDURE:? CT ABDOMEN PELVIS W CON ? INDICATIONS:? LLq pain severe left ovarian cyst ? TECHNIQUE:? After the administration of intravenous contrast, axial sections acquired from the lung bases to the pubic symphysis.? Coronal and sagittal reformats were performed.? For radiation dose reduction, the following was used:? automated exposure control, adjustment of mA and/or kV according to patient size.? ? COMPARISON:? [facility], CT, CT KUB, 07/02/2021, 15:59. ? FINDINGS:? Image quality:? Excellent.? ? Lung bases:? Unremarkable. Heart:? No significant findings. ? ABDOMEN: Liver:? Unremarkable.? ? Gallbladder:? Unremarkable.? ? Biliary ducts:? Unremarkable.? ? Pancreas:? Unremarkable.? ? Spleen:? Unremarkable.? ? Adrenal Glands:? Unremarkable.? ? Kidneys and Ureters:? Unremarkable.? ? ? Stomach and Bowel:? Stomach and small bowel are within normal limits.? There is mild fat stranding within the right paracolic gutter adjacent to the ascending colon, new since the prior examination.? Appendix is not seen.? No evidence of appendicitis. Peritoneum:? No abnormal intraperitoneal fluid.? No free air.? ? Ventral Wall: ? No hernias.? Abdominal Nodes:? No retroperitoneal or mesenteric adenopathy by size criteria.? Vessels:? Aorta and inferior vena cava are normal in size.? ? PELVIS: Pelvic Organs:? There is a 70 mm left ovarian cyst. Bladder:? Unremarkable.? ? Pelvic Nodes: No enlarged lymph nodes.? Miscellaneous: No hernias are seen. ? ? ? Bones:? Unremarkable.? IMPRESSION: ?1.? Right paracolic gutter fat stranding, suggestive of colitis.? Follow-up colonoscopy is recommended to exclude underlying neoplasm. 2. Left ovarian cyst; follow-up ultrasound examination in 6 weeks is recommended to ensure resolution and exclude underlying neoplasm. ? ? Dictated by: Tam Montgomery M.D. on 09/07/2022 at 16:25 ? Transcribed by: YULIA on 09/07/2022 at 16:28? ? [facility] Narrative Medical decision making narrative: Patient is a 46-year-old female who presents with severe sudden onset left lower quadrant pain. Concern for ovarian torsion ectopic ovarian cyst. Ultrasound confirms a left ovarian cyst measuring 4.2 x 3.7 x 5.3 cyst. She has been given morphine without any adverse reaction it does help with her pain. She is still exquisitely tender and tearful. She is willing to try Dilaudid. CT does show colitis. I think reasonable to start her on some antibiotics. She reports that she tolerates Brackney and hydrocodone for pain. Discharge Plan Departure Patient Disposition: Home Clinical Impression: Colitis, Cyst of left ovary Instructions: Clear Liquid Diet, DI for Ovarian Cyst, DI for Colitis Activity Restrictions/Additional Instructions: *You have been diagnosed with left ovarian cyst and colitis *What to do: At this time I recommend a clear liquid diet for the next couple of days. You should start feeling better after about 2-3 days so antibiotics. You will need repeat ultrasound for left ovary in about 6 weeks. You will also need an outpatient colonoscopy after your colitis has cleared. *Continue to take medications as directed --> [facility] IN [place] Cipro 500 mg twice daily for 7 days Flagyl 500 mg 3 times a day for 7 days Brackney 1 tablet every 6 hours if needed for severe pain *Follow up with your primary care provider in 2-3 days or call [phone] *Return to ER if you should have increasing pain persistent vomiting inability to tolerate fluids or any new, worsening or concerning symptoms Prescriptions: New hydrocodone-acetaminophen 5-325 mg tablet 1 tab PO Q6H PRN (Reason: pain) Qty: 10 0RF metronidazole 500 mg tablet 500 mg PO Q8H 7 Days Qty: 21 0RF ciprofloxacin HCl [Cipro] 500 mg tablet 500 mg PO BID Qty: 14 0RF No Action hydrocodone-acetaminophen [Vicodin] 5 MG/300 MG tablet 1 tab PO Q4HP PRN (Reason: PAIN) Qty: 0 atorvastatin [Lipitor] 20 MG tablet 20 mg PO QDAY Qty: 0 fluoxetine 40 mg Capsule 40 mg PO DAILY verapamil 180 mg Capsule,Ext Rel. Pellets 24 Hr 180 mg PO BEDTIME epinephrine [EpiPen] 0.3 mg/0.3 mL Auto-Injector 0.3 mg IM PRN PRN (Reason: Anaphylaxis) oxycodone 5 mg Tablet 5 mg PO Q3HR PRN (Reason: Pain, Moderate) Qty: 40 0RF hydroxyzine pamoate 25 mg Capsule 25 mg PO Q4HR PRN (Reason: Muscle Spasm) Qty: 40 0RF cyclobenzaprine 10 mg tablet 10 mg PO TID PRN (Reason: muscle spasm) Qty: 20 0RF oxycodone-acetaminophen [Percocet] 5-325 mg tablet 1 tab PO Q4-6H PRN (Reason: pain) Qty: 10 0RF Referrals: Jonh Kendall ARNP [Primary Care Provider] - Stand Alone Forms: Patient Portal/API
[2022-09-07] MEDS: MORPHINE 4 MG/ML INJ IV ×2 (12:36→14:10)
--- NOTE | 2022-09-07 12:36 | DI.US.S_ITS ---
PROCEDURE: US PELVIC COMPLETE INDICATIONS: LEFT PELVIC PAIN TECHNIQUE: Real-time scanning was performed of the pelvic organs, with image documentation. Additional endovaginal scanning was necessary due to incomplete visualization of the adnexal and endometrial structures by transabdominal scanning. COMPARISON: [facility], , US PELVIC COMPLETE, 12/18/2018, 13:40. FINDINGS: Uterus: Uterus is anteverted and normal in size at 8.1 by 4 by 5.6 cm. The myometrium is homogeneous. The endometrium measures 6.5 mm combined thickness. Ovaries: Right ovary not visualized. Left ovary measures 4.3 x 4.4 x 7.4 cm, and contains a 4.2 x 3.7 x 5.3 cm simple cyst. Normal vascularity present. No free fluid or adnexal mass. Other: No pathologic free abdominal or pelvic fluid. IMPRESSION: Left ovarian simple cyst, 5.3 cm. Nonvisualized right ovary. Approved by: Lauro Tinajero M.D. on 09/07/2022 at 14:43
[2022-09-07] MEDS: ONDANSETRON 4 MG/2 ML INJ IV (12:38)
[2022-09-07 13:05] LABS: Appearance Urine UA CLEAR; Bilirubin Urine UA NEGATIVE (NEGATIVE); Color Urine UA YELLOW; Glucose Urine UA NEGATIVE (Negative); Ketones Urine UA NEGATIVE (NEGATIVE); Leukocyte Esterase Urine UA 1+ (NEGATIVE); Nitrite Urine UA NEGATIVE (Negative); Occult Blood Urine UA 2+ (Negative); Protein Urine UA NEGATIVE (Negative); Specific Gravity Urine UA <=1.005 (1.000-1.035); Urobilinogen Urine UA 0.2 E.U./dL (0.2)
[2022-09-07 13:17] LABS: RBC Urine 0-1/HPF (0-5/HPF); Squamous Epithelial Cell Urine 1-5 /HPF (0-5/HPF); WBC Urine 5-10/HPF (0-5/HPF)
[2022-09-07 13:18] LABS: Bacteria Urine Few (2-10); Culture Indicated Urine Specimen Cultured
[2022-09-07] MEDS: HYDROMORPHONE 0.5 MG INJ IV (16:11)
--- NOTE | 2022-09-07 16:19 | DI.CT.S_ITS ---
PROCEDURE: CT ABDOMEN PELVIS W CON INDICATIONS: LLq pain severe left ovarian cyst TECHNIQUE: After the administration of intravenous contrast, axial sections acquired from the lung bases to the pubic symphysis. Coronal and sagittal reformats were performed. For radiation dose reduction, the following was used: automated exposure control, adjustment of mA and/or kV according to patient size. COMPARISON: [facility], CT, CT KUB, 07/02/2021, 15:59. FINDINGS: Image quality: Excellent. Lung bases: Unremarkable. Heart: No significant findings. ABDOMEN: Liver: Unremarkable. Gallbladder: Unremarkable. Biliary ducts: Unremarkable. Pancreas: Unremarkable. Spleen: Unremarkable. Adrenal Glands: Unremarkable. Kidneys and Ureters: Unremarkable. Stomach and Bowel: Stomach and small bowel are within normal limits. There is mild fat stranding within the right paracolic gutter adjacent to the ascending colon, new since the prior examination. Appendix is not seen. No evidence of appendicitis. Peritoneum: No abnormal intraperitoneal fluid. No free air. Ventral Wall: No hernias. Abdominal Nodes: No retroperitoneal or mesenteric adenopathy by size criteria. Vessels: Aorta and inferior vena cava are normal in size. PELVIS: Pelvic Organs: There is a 70 mm left ovarian cyst. Bladder: Unremarkable. Pelvic Nodes: No enlarged lymph nodes. Miscellaneous: No hernias are seen. Bones: Unremarkable. IMPRESSION: 1. Right paracolic gutter fat stranding, suggestive of colitis. Follow-up colonoscopy is recommended to exclude underlying neoplasm. 2. Left ovarian cyst; follow-up ultrasound examination in 6 weeks is recommended to ensure resolution and exclude underlying neoplasm. Dictated by: Tam Montgomery M.D. on 09/07/2022 at 16:25 Transcribed by: YULIA on 09/07/2022 at 16:28 Approved by: Tam Montgomery M.D. on 09/07/2022 at 16:38
[2022-09-07] MEDS: MORPHINE 2 MG/ML INJ IV (17:34)
== END 2022-09-07 18:15 | disposition home or self-care (01) ==
PROVIDERS: Emergency Provider Emergency Medicine; Family Provider Obstetrics & Gynecology; PCP Registered Nurse
DX: K52.9 Noninfective gastroenteritis and colitis, unspecified (principal); N83.202 Unspecified ovarian cyst, left side
CPT/HCPCS: 74177; 76830; 76856; 80053; 81001; 81025; 83690; 85025; 87086; 93976; 96374; 96375; 96376; 99284; J1170; J2270; J2405; Q9967

== ENCOUNTER 2022-09-12 20:13 | Emergency (ER) | payer OTHER, SELFPAY ==
[2022-09-12] VITALS (10 sets, daily range): BP systolic 124–139; BP diastolic 76–107; PULSE 69–90; RESP 15–18; TEMP 36.9; O2SAT 91–97; BMI 31.6
--- NOTE | 2022-09-12 20:43 | DI.US.S_ITS ---
PROCEDURE: US PELVIC COMPLETE INDICATIONS: PAIN TECHNIQUE: Real-time scanning was performed of the pelvic organs, with image documentation. Additional endovaginal scanning was necessary due to incomplete visualization of the adnexal and endometrial structures by transabdominal scanning. COMPARISON: [facility], US, US PELVIC COMPLETE, 09/07/2022, 12:45. FINDINGS: Uterus: Uterus is anteverted and measures 7.5 x 5.4 x 4.8 cm. The endometrium measures up to 0.7 cm. There are multiple nabothian cysts. Ovaries: The right ovary measures 3.2 x 2.0 x 2.5 cm, with a calculated ovarian volume of 8.4 cc. The left ovary measures 7.2 x 5.1 x 3.9 cm, with a calculated ovarian volume of 75 cc. The ovaries have a normal sonographic appearance. Less than 12 follicles can be seen in each ovary. An anechoic left renal cyst is redemonstrated, measuring up to 4.7 x 4.5 x 3.3 cm, similar in size compared to the prior study. There is also a smaller oval hypoechoic thin-walled structure in the left ovary with posterior acoustic enhancement measuring 1.5 x 1.8 x 1.6 cm. No internal vascularity on color Doppler interrogation. There is patent arterial and venous flow demonstrated in the ovaries. Other: There is a small amount of pelvic free fluid which appears within physiologic limits. IMPRESSION: 1. Large simple left ovarian cyst appears similar in size compared to the prior study. A follow-up ultrasound is recommended in 6-8 weeks to demonstrate resolution. 2. Hypoechoic structure within the left ovary suggestive of a complex cyst. The differential includes a hemorrhagic cyst or endometrioma. Attention is recommended on follow-up to demonstrate resolution. We strive to produce accurate, complete, and clear reports of imaging services. To assist us in improving patient care, this report was composed using standard report templates and voice recognition software. Therefore, it may contain abnormal punctuation, insertions and/or omissions. Occasional wrong-word or sound-alike substitutions may occur. Though we review the report and make efforts to correct it, we do recommend that the report be read carefully in proper context to recognize any text inaccuracies. Dictated by: Jack Olvera M.D. on 09/12/2022 at 22:46 Approved by: Jack Olvera M.D. on 09/12/2022 at 22:49
[2022-09-12] MEDS: ONDANSETRON 4 MG/2 ML INJ IV (20:54)
[2022-09-12] MEDS: HYDROMORPHONE 1 MG INJ IV ×2 (20:54→21:15)
[2022-09-12 21:00] LABS: Add Manual Diff / Slide Review NO; Basophils Absolute Auto 100 /uL (0-100); Basophils Percent Auto 1.5 % (0-2); Eosinophils Absolute Auto 200 /uL (0-450); Eosinophils Percent Auto 3.1 % (2-4); Hematocrit 41.3 % (36-46); Hemoglobin 14.6 g/dL (12.0-16.0); Lymphocytes Absolute Auto 2700 /uL (1100-4500); Lymphocytes Percent Auto 37.4 % (25-40); Mean Corpuscular HGB Conc 35.4 % (30-36); Mean Corpuscular Hemoglobin 30.2 PG (26-34); Mean Corpuscular Volume 85.3 fL (80-100); Monocytes Absolute Auto 600 /uL (0-900); Monocytes Percent Auto 7.9 % (3-14); Neutrophils Absolute Auto 3700 /uL (1500-7000); Neutrophils Percent Auto 50.1 % (50-75); Platelet Count 221 X10^3/uL (150-400); Red Blood Cell Count 4.84 X10^6/uL (4.0-5.2); Red Cell Distribution Width 13.1 % (11.6-14.8); White Blood Cell Count 7.3 X10^3/uL (4.5-11.0)
[2022-09-12 21:04] LABS: Alanine Aminotransferase 21 IU/L (<35); Albumin 4.2 g/dL (3.5-5.0); Albumin Globulin Ratio 1.3 (1.0-2.8); Alkaline Phosphatase 45 U/L (38-126); Aspartate Aminotransferase 23 IU/L (14-36); BUN Creatinine Ratio 9.8 (6-22); Bilirubin Total 0.3 mg/dL (0.2-1.3); Blood Urea Nitrogen 8 mg/dL (7-17); Calcium 8.9 mg/dL (8.4-10.2); Carbon Dioxide 26 mmol/L (22-32); Chloride 103 mmol/L (98-107); Estimated Glomerular Filt Rate > 60 mL/min (>60); Globulin 3.3 g/dL (1.7-4.1); Glucose 84 mg/dL (70-100); HEMOLYSIS 22 (0-50); Lipase 49 U/L (23-300); Sodium 137 mmol/L (137-145); Total Protein 7.5 g/dL (6.3-8.2)
[2022-09-12 21:37] LABS: Appearance Urine UA SL CLOUDY; Bilirubin Urine UA NEGATIVE (NEGATIVE); Color Urine UA YELLOW; Glucose Urine UA NEGATIVE (Negative); Ketones Urine UA NEGATIVE (NEGATIVE); Leukocyte Esterase Urine UA 1+ (NEGATIVE); Nitrite Urine UA NEGATIVE (Negative); Occult Blood Urine UA 2+ (Negative); Protein Urine UA NEGATIVE (Negative); Urobilinogen Urine UA 0.2 E.U./dL (0.2)
[2022-09-12 21:40] LABS: pH Urine UA 5.5 (4.5-8.0)
[2022-09-12 21:41] LABS: RBC Urine 5-10/HPF (0-5/HPF)
[2022-09-12 21:42] LABS: Bacteria Urine Many (>30); Culture Indicated Urine Specimen Cultured; Squamous Epithelial Cell Urine 10-30 /HPF (0-5/HPF); WBC Urine 1-5/HPF (0-5/HPF)
[2022-09-12 21:43] LABS: Lactate (Lactic Acid) 1.1 mmol/L (0.7-2.1)
--- NOTE | 2022-09-12 22:00 | ED_ITS ---
HPI - Nausea/Vomiting/Diarrhea General Chief complaint: Nausea/Vomiting/Diarrhea Stated complaint: abd pain, unable to eat/drink, hx ovarian cyst Time Seen by Provider: 09/12/22 20:43 Source: patient and family Mode of arrival: Ambulatory History of Present Illness HPI Narrative: Patient is a 46-year-old female history of vasoconstrictive disease presents today for the 2nd time in 5 days for left lower quadrant pain. She was seen evaluated by myself on the she would an ultrasound and a CT she was found to have some right pericolic gutter fat stranding possible colitis however her pain was on the left ultrasound was done which showed a left ovarian cyst. She was sent home with antibiotics for leukocytosis of Cipro and Flagyl and [place]. She has since seen her primary care provider she had refill of Vicodin. She reports the pain is not going away she is extremely tearful she has already received 2 doses of Dilaudid prior to my evaluation she reports that morphine helped better. She feels like she is extremely nauseous she is been unable to keep anything down today. She also reports that today she developed a rash on her cheeks and her PCP told her to stop taking the Cipro. She has no other rash no itching or other signs of allergic reaction Related Data Home Medications Medication Instructions Recorded Confirmed hydrocodone 5 mg-acetaminophen 300 1 tab PO Q4HP PRN PAIN ##0 01/18/16 11/28/17 mg tablet (Vicodin) atorvastatin 20 mg tablet (Lipitor) 20 mg PO QDAY ##0 02/04/16 11/28/17 epinephrine 0.3 mg/0.3 mL 0.3 mg IM PRN PRN Anaphylaxis 11/14/17 11/14/17 injection, auto-injector (EpiPen) fluoxetine 40 mg capsule 40 mg PO DAILY 11/14/17 11/28/17 verapamil 180 mg 24 hr 180 mg PO BEDTIME 11/14/17 11/28/17 capsule,extended release Previous Rx's Medication Instructions Recorded hydroxyzine pamoate 25 mg capsule 25 mg PO Q4HR PRN Muscle Spasm #40 11/28/17 caps oxycodone 5 mg tablet 5 mg PO Q3HR PRN Pain, Moderate 11/28/17 #40 tabs cyclobenzaprine 10 mg tablet 10 mg PO TID PRN muscle spasm #20 09/09/19 tabs oxycodone-acetaminophen 5 mg-325 1 tab PO Q4-6H PRN pain #10 tabs 09/11/19 mg tablet (Percocet) ciprofloxacin HCl 500 mg tablet 500 mg PO BID #14 tabs 09/07/22 (Cipro) hydrocodone 5 mg-acetaminophen 325 1 tab PO Q6H PRN pain #10 tabs 09/07/22 mg tablet metronidazole 500 mg tablet 500 mg PO Q8H 7 days #21 tabs 09/07/22 ondansetron 4 mg disintegrating 4 mg PO Q8H PRN nausea and 09/12/22 tablet vomiting #10 tabs Allergies Allergy/AdvReac Type Severity Reaction Status Date / Time amoxicillin [AMOXICILLIN] Allergy Severe HIVES Verified 09/07/22 12:28 NSAIDS (Non-Steroidal Allergy Severe cerebral Verified 09/07/22 12:28 Anti-Inflamma vasoconstrictive syndrome rizatriptan [From Maxalt] Allergy Severe cerebral Verified 09/07/22 12:28 vasoconstrive syndrome Sulfa (Sulfonamide Allergy Severe HIVES Verified 09/07/22 12:28 Antibiotics) [SULFA (SULFONAMIDE ANTIBIOTICS)] tree nut Allergy Severe Anaphylaxis Verified 09/07/22 12:28 walnut Allergy Severe Anaphylaxis Verified 09/07/22 12:28 hydromorphone [From Dilaudid] AdvReac Severe Vomiting Verified 09/07/22 12:28 vasoconstrictive meds Allergy Uncoded 09/07/22 12:28 Review of Systems Review of Systems ROS Unobtainable: All systems reviewed & are unremarkable except as noted in HPI and below Patient History Medical History (Updated 09/12/22 @ 23:35 by Wendy Aleman DO) Anisocoria Chronic thoracic spine pain Depression Hirsutism Migraine with aura MRSA (methicillin resistant Staphylococcus aureus) Numbness of right hand Osteoarthritis PCOS (polycystic ovarian syndrome) Reversible cerebrovascular vasoconstriction syndrome Right shoulder pain Surgical History Status post breast reduction Status post knee surgery Social History household members: spouse and children Smoking Status: Never smoker Smoking Status: Never smoker alcohol intake frequency: other Substance Use Type: does not use Exam Initial Vital Signs Initial Vital Signs: Vital Signs Temperature 98.4 F 09/12/22 20:16 Pulse Rate 90 09/12/22 20:16 Respiratory Rate 18 09/12/22 20:16 Blood Pressure 139/107 H 09/12/22 20:16 Pulse Oximetry 96 09/12/22 20:16 Oxygen Delivery Method Room Air 09/12/22 20:16 GENERAL: Alert tearful 46-year-old female HEENT: Head atraumatic,EOMI, pupils reactive, face symmetric, moist mucous membranes CARDIOVASCULAR: Regular rate and rhythm without murmurs, rubs or gallops. RESPIRATORY: Breath sounds equal bilaterally, no wheezes rales or rhonchi. ABDOMEN: Soft, pain left lower quadrant no guarding rebound EXTREMITIES: Normal range of motion, no clubbing or edema. Neurovascularly intact NEUROLOGICAL: Alert and oriented x4. SKIN: Warm, dry, no laceration, no petechiae, no rashes or lesions. Course Orders Ordered: ED Orders 09/12/22 20:30 Complete Blood Count AUTO DIFF Stat Comprehensive Metabolic Panel Stat Lactate (Lactic Acid) Stat Lipase Stat 09/12/22 20:43 US pelvic complete Stat 09/12/22 21:10 UA Complete [Urinalysis and Microscopic] Stat Urine Culture Stat Discontinued Medications Hydromorphone HCl (Hydromorphone 1 Mg Inj) 1 mg IV Q15MIN PRN PRN Reason: Pain, Severe (7-10) Last Admin: 09/12/22 21:15 Dose: 1 mg Documented By: Admin: 09/12/22 20:54 Dose: 1 mg Documented By: CARLOS Sodium Chloride (Normal Saline 0.9%) 1,000 mls @ 1,000 mls/hr IV BOLUS ONE Stop: 09/12/22 23:09 Last Infusion: 09/12/22 23:55 Dose: 0 mls/hr Documented By: Admin: 09/12/22 22:55 Dose: 1,000 mls/hr Documented By: CARLOS Lorazepam (Lorazepam 2 Mg/Ml Inj) 0.5 mg IV NOW ONE Stop: 09/12/22 22:39 Last Admin: 09/12/22 22:54 Dose: 0.5 mg Documented By: CARLOS Metoclopramide HCl (Metoclopramide 10 Mg/2 Ml Inj) 10 mg IV NOW ONE Stop: 09/12/22 22:11 Last Admin: 09/12/22 22:53 Dose: Not Given Documented By: CARLOS Morphine Sulfate (Morphine 4 Mg/Ml Inj) 4 mg IV NOW ONE Stop: 09/12/22 22:11 Last Admin: 09/12/22 23:15 Dose: 4 mg Documented By: CARLOS Ondansetron HCl (Ondansetron 4 Mg/2 Ml Inj) 4 mg IV NOW ONE Stop: 09/12/22 20:44 Last Admin: 09/12/22 20:54 Dose: 4 mg Documented By: CARLOS Ondansetron HCl (Ondansetron 4 Mg Odt Prepack) 1 bottle MISC SEEINSTR ONE Stop: 09/12/22 23:39 Last Admin: 09/12/22 23:55 Dose: Not Given Documented By: CARLOS Pantoprazole Sodium (Pantoprazole 40 Mg Vial) 40 mg IV NOW ONE Stop: 09/12/22 22:42 Last Admin: 09/12/22 22:54 Dose: 40 mg Documented By: CARLOS Vital Signs Vital signs: Vital Signs - 8 hr 09/12/22 20:16 09/12/22 20:32 09/12/22 21:00 Temperature 98.4 F Pulse Rate 90 90 85 Respiratory Rate 18 Blood Pressure 139/107 H Pulse Oximetry 96 95 94 Oxygen Delivery Method Room Air 09/12/22 21:29 09/12/22 21:29 09/12/22 21:30 Temperature Pulse Rate 81 82 Respiratory Rate Blood Pressure 134/79 Pulse Oximetry 97 96 Oxygen Delivery Method 09/12/22 22:00 09/12/22 22:30 09/12/22 23:00 Temperature Pulse Rate 83 87 70 Respiratory Rate Blood Pressure Pulse Oximetry 93 91 92 Oxygen Delivery Method 09/12/22 23:30 09/12/22 23:47 09/12/22 23:47 Temperature Pulse Rate 69 75 Respiratory Rate 15 Blood Pressure 124/76 Pulse Oximetry 92 92 Oxygen Delivery Method MDM - Nausea/Vomiting/Diarrhea Lab Data 09/12/22 20:30 09/12/22 20:30 Labs: Lab Results 09/12/22 09/12/22 09/12/22 Range/Units 20:30 20:30 20:30 WBC 7.3 (4.5-11.0) X10^3/uL RBC 4.84 (4.0-5.2) X10^6/uL Hgb 14.6 (12.0-16.0) g/dL Hct 41.3 (36-46) % MCV 85.3 (80-100) fL MCH 30.2 (26-34) PG MCHC 35.4 (30-36) % RDW 13.1 (11.6-14.8) % Plt Count 221 (150-400) X10^3/uL Neut % (Auto) 50.1 (50-75) % Lymph % (Auto) 37.4 (25-40) % [place] % (Auto) 7.9 (3-14) % Eos % (Auto) 3.1 (2-4) % Baso % (Auto) 1.5 (0-2) % Neut # (Auto) 3700 (0302-3486) /uL Lymph # (Auto) 2700 (0091-6479) /uL [place] # (Auto) 600 (0-900) /uL Eos # (Auto) 200 (0-450) /uL Baso # (Auto) 100 (0-100) /uL Sodium 137 (137-145) mmol/L Potassium 4.0 (3.4-5.1) mmol/L Chloride 103 (98-107) mmol/L Carbon Dioxide 26 (22-32) mmol/L BUN 8 (7-17) mg/dL Creatinine 0.82 (0.52-1.04) mg/dL Estimated GFR > 60 (>60) mL/min BUN/Creatinine Ratio 9.8 (6-22) Glucose 84 (70-100) mg/dL Lactate 1.1 (0.7-2.1) mmol/L Calcium 8.9 (8.4-10.2) mg/dL Total Bilirubin 0.3 (0.2-1.3) mg/dL AST 23 (14-36) IU/L ALT 21 (<35) IU/L Alkaline Phosphatase 45 (38-126) U/L Total Protein 7.5 (6.3-8.2) g/dL Albumin 4.2 (3.5-5.0) g/dL Globulin 3.3 (1.7-4.1) g/dL Albumin/Globulin Ratio 1.3 (1.0-2.8) Lipase 49 (23-300) U/L Urine Color Urine Appearance Urine pH (4.5-8.0) Ur Specific [place] (1.000-1.035) Urine Protein (Negative) Urine Glucose (UA) (Negative) g/dL Urine Ketones (NEGATIVE) Urine Occult Blood (Negative) Urine Nitrate (Negative) Urine Bilirubin (NEGATIVE) Urine Urobilinogen (0.2) E.U./dL Ur Leukocyte Esterase (NEGATIVE) Urine RBC (0-5/HPF) Urine WBC (0-5/HPF) Ur Squamous Epith Cells (0-5/HPF) Urine Bacteria (None) Ur Culture Indicated? 09/12/22 Range/Units 21:10 WBC (4.5-11.0) X10^3/uL RBC (4.0-5.2) X10^6/uL Hgb (12.0-16.0) g/dL Hct (36-46) % MCV (80-100) fL MCH (26-34) PG MCHC (30-36) % RDW (11.6-14.8) % Plt Count (150-400) X10^3/uL Neut % (Auto) (50-75) % Lymph % (Auto) (25-40) % [place] % (Auto) (3-14) % Eos % (Auto) (2-4) % Baso % (Auto) (0-2) % Neut # (Auto) (1513-4486) /uL Lymph # (Auto) (1897-3531) /uL [place] # (Auto) (0-900) /uL Eos # (Auto) (0-450) /uL Baso # (Auto) (0-100) /uL Sodium (137-145) mmol/L Potassium (3.4-5.1) mmol/L Chloride (98-107) mmol/L Carbon Dioxide (22-32) mmol/L BUN (7-17) mg/dL Creatinine (0.52-1.04) mg/dL Estimated GFR (>60) mL/min BUN/Creatinine Ratio (6-22) Glucose (70-100) mg/dL Lactate (0.7-2.1) mmol/L Calcium (8.4-10.2) mg/dL Total Bilirubin (0.2-1.3) mg/dL AST (14-36) IU/L ALT (<35) IU/L Alkaline Phosphatase (38-126) U/L Total Protein (6.3-8.2) g/dL Albumin (3.5-5.0) g/dL Globulin (1.7-4.1) g/dL Albumin/Globulin Ratio (1.0-2.8) Lipase (23-300) U/L Urine Color Yellow Urine Appearance Sl cloudy Urine pH 5.5 (4.5-8.0) Ur Specific [place] 1.020 (1.000-1.035) Urine Protein Negative (Negative) Urine Glucose (UA) Negative (Negative) g/dL Urine Ketones Negative (NEGATIVE) Urine Occult Blood 2+ H (Negative) Urine Nitrate Negative (Negative) Urine Bilirubin Negative (NEGATIVE) Urine Urobilinogen 0.2 (0.2) E.U./dL Ur Leukocyte Esterase 1+ H (NEGATIVE) Urine RBC 5-10/hpf H (0-5/HPF) Urine WBC 1-5/hpf (0-5/HPF) Ur Squamous Epith Cells 10-30 /hpf H D (0-5/HPF) Urine Bacteria Many (>30) H (None) Ur Culture Indicated? Specimen cultured Urine Dip Bedside Urine Glucose Negative Bedside Urine Bilirubin - Negative Bedside Urine Ketone - Negative Urine Specific [place] 1.020 Bedside Urine Occult Blood +++ Bedside Urine pH 6.0 Bedside Urine Protein - Negative Bedside Urine Urobilinogen - Negative Bedside Urine Nitrite - Negative Bedside Urine Leukocytes ++ 125 Esterase MDM Narrative Medical decision making narrative: Patient 46-year-old female having intense left lower quadrant pain. Had full workup with abdominal CT blood work and ultrasound 5 days ago. Still having pain complaining today of nausea not tolerating anything. She is not vomited he re. Pain is not controlled after 2 doses of Dilaudid. She is extremely tearful says that she is nauseous. She previously reported that pain medication makes her nauseous. Blood work today is improved from 5 days ago she has WBC count 7.3 no left shift electrolytes are within normal limits without MARIA LUZ. She is a negative lactate no concern for ischemic bowel. Ultrasound again confirms large ovarian cysts and a small hemorrhagic complex cyst. This is likely the cause of her pain there is no evidence of torsion or abscess. Due to her vasoconstrictive disease her medications are limited she can not have Toradol Reglan her other medications. Ativan and morphine seem to help her the most. Dilaudid has not seem to help her very much. Discussed with her she needs Dr. Jiang about pain control. Happy to give her prescription for Zofran. Discharge Plan Departure Patient Disposition: Home Clinical Impression: Ovarian cyst Instructions: DI for Ovarian Cyst Activity Restrictions/Additional Instructions: *You have been diagnosed with ovarian cyst *What to do: At this time you have a left ovarian cyst your blood work is overall reassured. You are going have to Primary care provider about pain control at home. Increase fluids as tolerated *Continue to take medications as directed Zofran 4 mg every 8 hours if needed for nausea or vomiting *Follow up with your primary care provider in 2-3 days or call [phone] *Return to ER if you should have inability to tolerate fluids worsening pain or any new, worsening or concerning symptoms Prescriptions: New ondansetron 4 mg tablet,disintegrating 4 mg PO Q8H PRN (Reason: nausea and vomiting) Qty: 10 0RF No Action hydrocodone-acetaminophen [Vicodin] 5 MG/300 MG tablet 1 tab PO Q4HP PRN (Reason: PAIN) Qty: 0 atorvastatin [Lipitor] 20 MG tablet 20 mg PO QDAY Qty: 0 fluoxetine 40 mg Capsule 40 mg PO DAILY verapamil 180 mg Capsule,Ext Rel. Pellets 24 Hr 180 mg PO BEDTIME epinephrine [EpiPen] 0.3 mg/0.3 mL Auto-Injector 0.3 mg IM PRN PRN (Reason: Anaphylaxis) oxycodone 5 mg Tablet 5 mg PO Q3HR PRN (Reason: Pain, Moderate) Qty: 40 0RF hydroxyzine pamoate 25 mg Capsule 25 mg PO Q4HR PRN (Reason: Muscle Spasm) Qty: 40 0RF cyclobenzaprine 10 mg tablet 10 mg PO TID PRN (Reason: muscle spasm) Qty: 20 0RF oxycodone-acetaminophen [Percocet] 5-325 mg tablet 1 tab PO Q4-6H PRN (Reason: pain) Qty: 10 0RF hydrocodone-acetaminophen 5-325 mg tablet 1 tab PO Q6H PRN (Reason: pain) Qty: 10 0RF metronidazole 500 mg tablet 500 mg PO Q8H 7 Days Qty: 21 0RF ciprofloxacin HCl [Cipro] 500 mg tablet 500 mg PO BID Qty: 14 0RF Referrals: Jonh Kendall ARNP [Primary Care Provider] - Stand Alone Forms: Patient Portal/API
[2022-09-12] MEDS: PANTOPRAZOLE 40 MG VIAL IV (22:54)
[2022-09-12] MEDS: LORazepam 2 MG/ML INJ 0.5 MG IV (22:54)
[2022-09-12] MEDS: SODIUM CHLORIDE 0.9% 1,000 ML 1000 ML IV (22:55)
[2022-09-12] MEDS: MORPHINE 4 MG/ML INJ IV (23:15)
== END 2022-09-12 23:57 | disposition home or self-care (01) ==
PROVIDERS: Emergency Provider Emergency Medicine; Family Provider Obstetrics & Gynecology; PCP Registered Nurse
DX: N83.292 Other ovarian cyst, left side (principal); R11.0 Nausea
CPT/HCPCS: 36415; 76830; 76856; 80053; 81001; 81003; 83605; 83690; 85025; 87086; 96361; 96374; 96375; 96376; 99284; C9113; J1170; J2060; J2270; J2405

== ENCOUNTER → 2023-02-01 15:55 | Outpatient (CLI) | payer OTHER, SELFPAY ==
--- NOTE | 2023-02-01 15:57 | DI.US.S_ITS ---
PROCEDURE: US PELVIC COMPLETE INDICATIONS: Irregular bleeding/poss fibroid TECHNIQUE: Real-time scanning was performed of the pelvic organs, with image documentation. Additional endovaginal scanning was necessary due to incomplete visualization of the adnexal and endometrial structures by transabdominal scanning. COMPARISON: [facility], US, US PELVIC COMPLETE, 09/07/2022, 12:45. [facility], CT, CT ABDOMEN PELVIS W CON, 09/07/2022, 16:12. [facility], US, US PELVIC COMPLETE, 09/12/2022, 20:57. FINDINGS: Uterus: Uterus is anteverted and normal in size at 8.1 x 3.9 x 3.1 cm. The myometrium is heterogeneous. The endometrium measures 11.8 mm combined thickness. Nabothian cysts are noted in cervix Ovaries: The right ovary measures 2.6 x 2.3 x 1.8 cm, with a calculated ovarian volume of 5.3 cc. The left ovary is not well seen there is a 2.1 x 1.6 x 1.4 cm septated cyst in the left adnexa. The ovaries have a normal sonographic appearance. Less than 12 follicles can be seen in each ovary. No adnexal masses are seen. Other: No pathologic free abdominal or pelvic fluid. IMPRESSION: 1. There is a 2.1 x 1.6 x 1.4 cm complex cyst in left adnexa, likely arising from the left ovary. 2. The previously seen 4.7 cm simple cyst in the left ovary is no longer visualized. 3. Unremarkable right ovary. 4. Myometrium has heterogeneous echotexture. This finding can be secondary to adenomyosis. We strive to produce accurate, complete, and clear reports of imaging services. To assist us in improving patient care, this report was composed using standard report templates and voice recognition software. Therefore, it may contain abnormal punctuation, insertions and/or omissions. Occasional wrong-word or sound-alike substitutions may occur. Though we review the report and make efforts to correct it, we do recommend that the report be read carefully in proper context to recognize any text inaccuracies. Dictated by: Kim Claudio M.D. on 02/02/2023 at 10:14 Approved by: Kim Claudio M.D. on 02/02/2023 at 10:23
== END ==
LOC: US 15:55
PROVIDERS: Family Provider Obstetrics & Gynecology; PCP Registered Nurse; Referring Provider Obstetrics & Gynecology; Visit Provider Obstetrics & Gynecology
DX: N92.6 Irregular menstruation, unspecified (principal); N94.89 Other specified conditions associated with female genital organs and menstrual cycle
CPT/HCPCS: 76830; 76856

== ENCOUNTER 2023-03-31 08:34 | Day surgery (SDC) | payer OTHER, SELFPAY ==
[2023-03-21 09:52] VITALS: BMI 29.1
[2023-03-31] VITALS (16 sets, daily range): BP systolic 87–143; BP diastolic 49–90; PULSE 61–101; RESP 16–20; TEMP 36.2–36.8; O2SAT 96–99; BMI 29.1
--- NOTE | 2023-03-31 | PATH_ITS ---
[facility] Accession Number: [id number] No. of containers..01 Tissue . 01 Material submitted: . uterus - UTERUS,BILATERAL FALLOPIAN TUBES, AND LEFT OVARY . 01 Diagnosis: A. Uterus, Bilateral Fallopian Tubes and Left Ovary, Hysterectomy, Bilateral Salpingectomy and Left Oophorectomy: Left ovary with multiple benign simple lined epithelial and physiologic cysts. Cross sections of bilateral fallopian tubes with mild features of hydrosalpinx. Inflamed cervix with reactive changes. Benign secretory endometrium. Myometrium and serosa within normal limits. No evidence of malignancy. [facility] 04/12/2023 1252 Local . 01 Electronically signed: . Brittany Gomez MD, Pathologist NPI- [id number] . 01 Gross description: . The specimen is received in formalin labeled with the patient's name, , and uterus, bilateral fallopian tubes, left ovary, and consists of an intact uterus (99 grams, 9.3 cm from superior to inferior, 5.4 cm from medial to lateral, 4.2 cm from anterior to posterior), with attached cervix (2.8 x 2.7 cm), with left attached fallopian tube (5.1 x 0.7 cm), left attached ovary (9 grams, 4.0 x 2.6 x 2.5 cm), and detached right fallopian tube (5.3 x 0.6 cm), with no additional adnexa. . The cervix has almeida, finely granular ectocervix with a slit-like os measuring 0.7 cm in diameter. A purple suture is located at approximately 12 o'clock with no designation per the requisition. The anterior paracervical margin is inked blue while the posterior paracervical margin is inked black. . The serosa is almeida and smooth with no evidence of hemorrhage or adhesion identified. The endocervical canal has almeida herringbone mucosa measuring 3.4 cm in length. The endometrial cavity measures 2.6 cm from cornu to cornu, and 4.0 cm in length with pink-almeida, velvety endometrium that averages 0.1 cm thick with no polyps or lesions identified. The myometrium is pink-almeida and trabecular measuring up to 2.2 cm in maximum thickness with no nodules or lesions identified. . The left fallopian tube has violaceous, smooth serosa with no cystic structures identified. Sectioning reveals an unremarkable stellate lumen. The left ovary has a almeida, cerebriform external surface that is inked green. Sectioning reveals multiple thin-walled cystic structures ranging from 0.7 to 1.3 cm in greatest dimension with contents that are almeida and serous as well as semi-solid and hemorrhagic. An ill-defined pale almeida lesion is identified centrally measuring 2.3 x 1.7 x 1.5 cm, and approaches the inked surface by 0.1 cm. A small amount of normal ovarian parenchyma is identified at the periphery of the lesion. . The right fallopian tube has violaceous, smooth serosa with a cystic structure measuring 0.2 cm in greatest dimension filled with clear serous fluid. Sectioning reveals an unremarkable stellate lumen. . [employer] sections are submitted as follows: A1: Anterior cervix. A2: Posterior cervix. A3: Anterior full thickness section. A4: Posterior full thickness section. A5: Serosa. A6: Left fallopian tube to include one-half of bisected fimbriae and cross-sections. A7-A9: [employer] left ovary. A10: Right fallopian tube to include one-half of bisected fimbriae and cross-sections. ([id number]) /[facility] 04/02/2023 2107 Local . 01 Pathologist provided ICD-10: N93.9 . 01 CPT . 550040 Specimen Comment: A courtesy copy of this report has been sent to [phone] Performed at: 01 [facility] [address] [place] [address], [place], [place] [id number] MD Jack House MD Phone: [phone]
[2023-03-31] MEDS: LACTATED RINGERS 1,000 ML 42 ML IV (09:36)
[2023-03-31] MEDS: SCOPOLAMINE 1 PATCH TOP (09:49)
--- NOTE | 2023-03-31 09:58 | PM.PREOP ---
Pre-operative Note COVID-19 COVID-19 status: Not tested Interval Note History & Physical reviewed/Exam performed by Physician: Yes Changes to H&P: No
[2023-03-31] MEDS: CEFAZOLIN 2 GM/100 ML PREMIX 100 ML IV (10:17)
[2023-03-31] MEDS: FOSAPREPITANT 150 MG in SODIUM CHLORIDE 0.9% 150 ML 300 MG IV (10:35)
--- NOTE | 2023-03-31 10:50 | SUR.OPER ---
Lithotomy on padded OR bed. [place] Pad Positioner under torso. Head on pillow, arms padded and tucked at sides. Legs secured in padded yellow fins stirrups.
[2023-03-31] MEDS: BUPIVACAINE 0.5% (PF) 30 ML VIAL INJ (10:59)
[2023-03-31] MEDS: ROPIVACAINE 0.2% PF 2 MG/ML 10ML AMP 20 ML INJ (11:06)
--- NOTE | 2023-03-31 12:05 | P.OP_ITS ---
Operative Date/Time/Diagnoses Date of procedure: 03/31/23 Time of procedure: 10:45 Pre-op diagnosis: Menometrorrhagia Adenomyosis (presumptive diagnosis) Chronic pelvic pain Left ovarian cyst, complex Post-op diagnosis: same Procedure & Clinicians Procedure: Procedures Operation Date: 03/31/23 09:45 Actual Procedure Side Surgeon p Total Laparoscopic Hysterectomy with left salpingo-oophorectomy and right salpingectomy Toribio Lawson MD Indications: Nelson is a 47-year-old , who has been bleeding continuously since August 2022 who presents for evaluation. Menstrual flow since August has been sporadic and seems to alternate between bright red blood and dark sticky menstrual blood. Her pain with these episode leading are also variable but can be extreme and incapacitating. Patient experienced menarche at age 18 and has always had irregular cycles. She was diagnosed with polycystic ovarian syndrome at approximately age 20 and was placed on oral contraceptives. The oral contraceptives provided little benefit insofar as regularly her cycles and were discontinued when she chose to pursue . She had extreme difficulty in conceiving despite ovulation induction and IUI procedures. She was successful however with IVF and became a total of 4 times and delivered vaginally a single, premature infant 22 years ago. The patient has also had a total of 3 Mirena IUDs placed over the years with her most recent Mirena IUD removed about [address] Escobar in [place] after it was found to be imbedded in the cervix. A previous Mirena IUD was also found to be malpositioned and heavy removed and she spontaneously expelled her 1st Mirena IUD. Her Paps have always been normal and she had an endometrial biopsy performed by Dr. Escobar 6 months ago which was normal. A recent pelvic ultrasound performed 02/01/2023 showed: FINDINGS: Uterus: Uterus is anteverted and normal in size at 8.1 x 3.9 x 3.1 cm. The myometrium is heterogeneous. The endometrium measures 11.8 mm combined thickness. Nabothian cysts are noted in cervix Ovaries: The right ovary measures 2.6 x 2.3 x 1.8 cm, with a calculated ovarian volume of 5.3 cc. The left ovary is not well seen there is a 2.1 x 1.6 x 1.4 cm septated cyst in the left adnexa. The ovaries have a normal sonographic appearance. Less than 12 follicles can be seen in each ovary. No adnexal masses are seen. Other: No pathologic free abdominal or pelvic fluid. IMPRESSION: 1. There is a 2.1 x 1.6 x 1.4 cm complex cyst in left adnexa, likely arising from the left ovary. 2. The previously seen 4.7 cm simple cyst in the left ovary is no longer visualized. 3. Unremarkable right ovary. 4. Myometrium has heterogeneous echotexture. This finding can be secondary to adenomyosis. Options for management of the patient's irregular heavy bleeding as well as her chronic pelvic pain discussed at length. Patient has largely exhausted medical options and instead would like to pursue surgical remedies. Based on the patient's pelvic ultrasound findings, she would not be a good candidate for endometrial ablation due to the probable presence of adenomyosis as the underlying cause of her symptoms. In addition because of her pelvic pain, patient would prefer to have hysterectomy performed laparoscopically so the potential causes of the pelvic pain can be identified. After full discussion of options, will proceed with total laparoscopic hysterectomy and bilateral gwen pingectomy with left oophorectomy as the patient's left ovary has been a source of pain. She presents today for her scheduled surgery. Surgeon: Toribio Lawson Tire Stripper: Britney Miller Anesthesia Type: General Operative Notes Findings: Upper limits normal-sized uterus, diffusely enlarged. No evidence of peritoneal endometriosis noted in the cul-de-sac. The left ovary is slightly enlarged compared to the right but is otherwise unremarkable. The right ovary is normal as are both fallopian tubes. Upper abdomen is normal to laparoscopic visualization Closure Type: primary Specimen(s): right tube, left tube & ovary and uterus Applied: catheter Estimated blood loss (mL): 75 Blood products transfused: none Procedure in detail: With the patient in modified dorsal lithotomy position preparations were made by prepping and draping the patient in usual manner for vaginal surgery and insertion of Dahl catheter. A pre-surgical time-out was then taken in accordance with [facility] policy. A bivalve speculum was then placed in the vagina and the cervix visualized. The anterior lip of the cervix was then grasped with a single-tooth tenaculum. The uterus was sounded to 9 cm, the endocervical canal dilated slightly, and a IronPlanet uterine manipulator with a medium colpotomy cup was placed. The umbilicus was then infiltrated with 0.5% Marcaine with epinephrine. A 1 cm umbilical incision was made transversely and a Veress needle was used to insufflate the abdominal cavity with carbon dioxide. Once the abdomen was appropriately insufflated, a 5 mm trocar and sleeve were then placed through the umbilical incision. The scope was placed through the trocar and the initial assessment of the intra-abdominal contents carried out. A 2nd and 3rd 5 mm port was then placed 1st in the right mid quadrant from then the left mid quadrant by infiltration of the skin and subcutaneous tissues, a 1 cm transverse incision and insertion of the 5 mm bladeless port. Using a 3 puncture technique, the abdomen and pelvis were inspected laparoscopy and photographically documented. Uterus is mobilized with the Akoshaare manipulator and attention turned to the left adnexa. The distal tube was then grasped and the left infundibulopelvic ligament divided after coagulation with the PowerSeal device. The dissection was then carried out across the mesosalpinx toward the cornua and was then carried down using the PowerSeal device so as to divide the utero-ovarian ligament and the round ligament with blunt and sharp dissection of the broad down to the level of the uterine artery. The uterine artery was then skeletonized after development of a bladder flap, coagulated, and divided. Once hemostasis was assured on the left side attention was turned to the right and the tube, utero-ovarian ligament, round ligament, and broad ligament were dissected in a fashion exactly the same as it had been on the left. The right uterine artery was then visualized after skeletonization and coagulated and divided. The uterus was seen to aurelia after coagulation of both your arteries and the cup was identified through the vaginal muscularis at its insertion with the body of the cervix. Circumferential excision of the vaginal cup was accomplished without difficulty using monopolar current and the uterus mobilized. The uterus was then removed through the vagina and the vaginal cuff closed [id number] with a series of 0 Vicryl [id number]-pt-iwkfl stitches. Hemostasis was excellent, the abdomen was re-insufflated, and the pelvis inspected laparoscopically. The pelvis was inspected for any abnormality or bleeding, and the ureters were each seen to be peristalsing freely. With complete hemostasis assured, the pneumoperitoneum was vented and the ports removed. All of the 5 mm ports were then closed with 4-0 Monocryl on the skin using inverted interrupted sutures. Skin glue was placed and after the glue was dried, an appropriate dressing was applied. The case was then terminated, the patient awakened, and then transferred to PACU after having tolerated the pro cedure well. Complications: none Post-operative Condition: stable Disposition: PACU Plan for aftercare: Recovery in ambulatory surgery in discharge home later today if pain is under control and she is tolerating oral intake well.
[2023-03-31] MEDS: ONDANSETRON 4 MG/2 ML INJ IV ×3 (12:24→20:39)
[2023-03-31] MEDS: OXYCODONE/ACETAMINOPHEN 5/325 TABLET 1 TAB PO (12:41)
[2023-03-31] MEDS: ACETAMINOPHEN 325 MG TABLET 650 MG PO ×2 (13:52→18:08)
[2023-03-31] MEDS: MORPHINE 2 MG/ML INJ IV ×4 (13:52→20:39)
[2023-03-31] MEDS: LACTATED RINGERS 1,000 ML 100 ML IV (13:53)
[2023-03-31] MEDS: HYDROCODONE/ACET 10/325 TABLET 1 TAB PO (15:10)
[2023-03-31] MEDS: LORazepam 1 MG TABLET 2 MG PO ×2 (15:57→22:43)
--- NOTE | 2023-03-31 18:57 | PC.NURSE ---
Day shift: Patient came up to the floor from PACU crying and rating pain 10/10. Patient states I didn't know it would hurt this bad there. She states she was expecting pain in abdomen, but not in vagina. Gave ordered IV morphine which provided relief for about 1 hour. Then patient crying again, stating intense pain. Called MD Lawson who ordered increased frequency in morphine and PO ativan. Gave both medications, which patient stated helped. She is now resting comfortably with SO at bedside. Dahl patent. Will continue to monitor.
[2023-03-31] MEDS: DOCUSATE 100 MG CAPSULE 200 MG PO (20:38)
[2023-03-31] MEDS: clonazePAM 0.5 MG TABLET 1 MG PO (20:39)
[2023-04-01] MEDS: HYDROCODONE/ACET 10/325 TABLET 1 TAB PO ×2 (00:10→04:52)
[2023-04-01] MEDS: ACETAMINOPHEN 325 MG TABLET 650 MG PO ×4 (00:40→23:03)
[2023-04-01] MEDS: ONDANSETRON 4 MG/2 ML INJ IV ×3 (00:40→21:19)
[2023-04-01] MEDS: LORazepam 1 MG TABLET 2 MG PO ×4 (04:52→23:03)
[2023-04-01 05:48] LABS: Add Manual Diff / Slide Review NO; Basophils Absolute Auto 0 /uL (0-100); Basophils Percent Auto 0.3 % (0-2); Eosinophils Absolute Auto 0 /uL (0-450); Hematocrit 40.1 % (36-46); Hemoglobin 13.8 g/dL (12.0-16.0); Lymphocytes Absolute Auto 1500 /uL (1100-4500); Lymphocytes Percent Auto 12.5 % (25-40); Mean Corpuscular HGB Conc 34.5 % (30-36); Mean Corpuscular Hemoglobin 30.4 PG (26-34); Mean Corpuscular Volume 87.9 fL (80-100); Monocytes Absolute Auto 700 /uL (0-900); Monocytes Percent Auto 5.9 % (3-14); Neutrophils Absolute Auto 9800 /uL (1500-7000); Neutrophils Percent Auto 81.3 % (50-75); Platelet Count 189 X10^3/uL (150-400); Red Blood Cell Count 4.56 X10^6/uL (4.0-5.2); Red Cell Distribution Width 13.5 % (11.6-14.8); White Blood Cell Count 12.1 X10^3/uL (4.5-11.0)
[2023-04-01] MEDS: MORPHINE 2 MG/ML INJ IV ×3 (06:02→15:13)
[2023-04-01 07:45] VITALS: BP 118/73; PULSE 77; RESP 18; TEMP 36.8; O2SAT 97
[2023-04-01] MEDS: clonazePAM 0.5 MG TABLET 1 MG PO (09:11)
[2023-04-01] MEDS: DOCUSATE 100 MG CAPSULE 200 MG PO ×2 (09:11→20:38)
--- NOTE | 2023-04-01 09:41 | P.DS_ITS ---
History of Present Illness History of Present Illness Date Patient Seen: 04/01/23 Time Patient Seen: 09:00 Chief complaint: Menometrorrhagia, Adenomyosis, Left ovarian cyst Narrative: Nelson is a 47-year-old , who has been bleeding continuously since August 2022 who presents for evaluation. Menstrual flow since August has been sporadic and seems to alternate between bright red blood and dark sticky menstrual blood. Her pain with these episode leading are also variable but can be extreme and incapacitating. Patient experienced menarche at age 18 and has always had irregular cycles. She was diagnosed with polycystic ovarian syndrome at approximately age 20 and was placed on oral contraceptives. The oral contraceptives provided little benefit insofar as regularly her cycles and were discontinued when she chose to pursue . She had extreme difficulty in conceiving despite ovulation induction and IUI procedures. She was successful however with IVF and became a total of 4 times and delivered vaginally a single, premature infant 22 years ago. The patient has also had a total of 3 Mirena IUDs placed over the years with her most recent Mirena IUD removed about [address] Escobar in [place] after it was found to be imbedded in the cervix. A previous Mirena IUD was also found to be malpositioned and heavy removed and she spontaneously expelled her 1st Mirena IUD. Her Paps have always been normal and she had an endometrial biopsy performed by Dr. Escobar 6 months ago which was normal. A recent pelvic ultrasound performed 02/01/2023 showed: FINDINGS: Uterus: Uterus is anteverted and normal in size at 8.1 x 3.9 x 3.1 cm. The myometrium is heterogeneous. The endometrium measures 11.8 mm combined thickness. Nabothian cysts are noted in cervix Ovaries: The right ovary measures 2.6 x 2.3 x 1.8 cm, with a calculated ovarian volume of 5.3 cc. The left ovary is not well seen there is a 2.1 x 1.6 x 1.4 cm septated cyst in the left adnexa. The ovaries have a normal sonographic appearance. Less than 12 follicles can be seen in each ovary. No adnexal masses are seen. Other: No pathologic free abdominal or pelvic fluid. IMPRESSION: 1. There is a 2.1 x 1.6 x 1.4 cm complex cyst in left adnexa, likely arising from the left ovary. 2. The previously seen 4.7 cm simple cyst in the left ovary is no longer visualized. 3. Unremarkable right ovary. 4. Myometrium has heterogeneous echotexture. This finding can be secondary to adenomyosis. Options for management of the patient's irregular heavy bleeding as well as her chronic pelvic pain discussed at length. Patient has largely exhausted medical options and instead would like to pursue surgical remedies. Based on the patient's pelvic ultrasound findings, she would not be a good candidate for endometrial ablation due to the probable presence of adenomyosis as the underlying cause of her symptoms. In addition because of her pelvic pain, patient would prefer to have hysterectomy performed laparoscopically so the potential causes of the pelvic pain can be identified. After full discussion of options, will proceed with total laparoscopic hysterectomy and bilateral salpingectomy with left oophorectomy as the patient's left ovary has been a source of pain. She presents for her scheduled surgery. Discharge Providers Provider Primary care physician: SUNSHINE Kwan Consults: 03/21/23 10:43 Consult to Anesthesiology Routine Comment: Consulting Provider: Anesthesiologist Reason for consultation: Pt requests a call from Anesthesia prior to dos Discharge provider: Toribio Lawson MD Exam Vital Signs (past 8 hours): - 04/01/23 07:45 Temperature 98.3 F Pulse Rate 77 Respiratory Rate 18 Blood Pressure 118/73 Pulse Oximetry 97 Oxygen Flow Rate 0 Oxygen Delivery Method Room Air Oxygen Flow Rate 0 Objective Labs 04/01/23 05:15 Labs: Laboratory Results - last 24 hr 04/01/23 05:15 WBC 12.1 H RBC 4.56 Hgb 13.8 Hct 40.1 MCV 87.9 MCH 30.4 MCHC 34.5 RDW 13.5 Plt Count 189 Neut % (Auto) 81.3 H Lymph % (Auto) 12.5 L [place] % (Auto) 5.9 Eos % (Auto) 0.0 L Baso % (Auto) 0.3 Neut # (Auto) 9800 H Lymph # (Auto) 1500 [place] # (Auto) 700 Eos # (Auto) 0 Baso # (Auto) 0 PFSH Medical History (Updated 03/21/23 @ 10:26 by Isi Marlow RN) Severe anxiety History of COVID-19 (2020) Anesthesia complication Cerebral vasoconstriction syndrome Cauda equina compression Wears glasses Migraines Chronic back pain Chicken pox PCOS (polycystic ovarian syndrome) Painful menstrual periods Irregular menstrual cycle (~1990) Infertility (~1997) Heavy menstrual period History of urinary incontinence Fecal incontinence Hyperlipidemia Hypertension Headache Cervical disc disorder at C4-C5 level with radiculopathy Numbness of right hand Osteoarthritis Right shoulder pain MRSA (methicillin resistant Staphylococcus aureus) (~2008) Hirsutism PCOS (polycystic ovarian syndrome) 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 Depression (~1999) Migraine with aura Anxiety Surgical History (Updated 03/21/23 @ 09:58 by Isi Marlow RN) History of arthroscopy of right shoulder (11/28/17) History of surgery (~2019) History of repair of rotator cuff (~2014) Anesthesia Cauda equina compression (~2021) Status post knee surgery Status post breast reduction (~2001) Social History household members: spouse Smoking Status: Never smoker alcohol intake: former Discharge Plan Discharge Plan Patient Disposition: Home Provider Discharge Comment: Please review the written instructions you received when you were discharged from hospital. Your follow-up appointment will be scheduled 2 weeks after your surgery and I look forward to seeing you then. If however in the meanwhile you have any issues, concerns, or questions, please contact me either through the office phone at [phone], or via the patient portal. Discharge orders & Medications Discharge Orders: Discharge (Order); Ordered 04/01/23 Ordered By: Toribio Lawson Prescriptions: New ciprofloxacin HCl [Cipro] 500 mg tablet 500 mg PO BID 5 Days Qty: 10 0RF oxycodone 10 mg tablet 10 mg PO Q4-6H PRN (Reason: pain) Qty: 30 0RF Continued hydrocodone-acetaminophen 10-325 mg tablet 1 tab PO Q6H PRN (Reason: Pain (Scale Score 1-3)) Mounjaro 12.5 mg/0.5 mL pen injector 12.5 mg SUBCUT QWEEK fluoxetine 40 mg Capsule 60 mg PO DAILY epinephrine [EpiPen] 0.3 mg/0.3 mL Auto-Injector 0.3 mg IM PRN PRN (Reason: Anaphylaxis) prazosin 1 mg Capsule 1 mg PO QPM verapamil 180 mg Tablet Extended Release 180 mg PO BEDTIME clonazepam 0.5 mg Tablet 1 mg PO BID Follow up/Referrals: Jonh Kendall ARNP [Primary Care Provider] - Toribio Lawson MD [Physician] - Diet/Activity/Treatments Diet: Diet as Tolerated Activity: As tolerated Other treatments: Hwgf-csj-pmbckic ibuprofen and/or Tylenol may be used for additional pain relief. Amzo-bqx-czfsbuq stool softeners and/or MiraLax may be used as needed for constipation. Skin/Wound/Dressing Care Dressing: Dressings should be removed on the morning of 04/02/2023 Visit Report/Discharge Packet Instructions: DI for Hysterectomy, DI for Laparoscopy Stand Alone Forms: Surgery Discharge Print Language: Turkish Discharge Data Primary Care Provider: Jonh Kendall Attending Provider: Toribio Lawson
[2023-04-01] MEDS: OXYCODONE IR 5 MG TABLET 10 MG PO (11:21)
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
[2023-04-01] MEDS: OXYCODONE IR 10 MG TABLET PO ×2 (16:32→20:38)
--- NOTE | 2023-04-01 17:09 | PC.NURSE ---
Day shift: Patient consistently rating pain 8/10. Crying and guarding - she states the Henrietta is providing no relief. IV morphine given - adequate relief, but short-lived. Spoke with MD Lawson regarding patient's pain. He stated he would order PO oxycodone for her instead of the Henrietta. MD Lawson put in discharge orders, but sent PO oxycodone to outside pharmacy for discharge, did not order any for hospital administration. Called MD Lawson - he ok'ed 1 time dose of 10mg PO oxycodone. Given and this provided patient adequate pain relief. Patient stated pain decreased to a 5/10 which is tolerable for her. Dahl removed this AM. Aided patient in ambulating to the BR. Patient drank copious amounts of fluids, unable to void. Tried warm fluids, coffee, ambulating. After 5 hours, patient still unable to void and stated that her bladder feels very full. Bladder scan for 750mL. Called MD Lawson and left VM x2. Called MD Miller - she ok'ed 10mg PO oxycodone Q4hrs for pain and Dahl placement. New plan is to d/c Dahl tomorrow AM and patient will hopefully have better pain control overnight and be able to void and discharge in the AM. Will continue to monitor.
[2023-04-01 20:00] VITALS: BP 103/50; PULSE 77; RESP 16; TEMP 36.3; O2SAT 95
--- NOTE | 2023-04-01 22:07 | PC.NURSE ---
Dr. Barrera called if patient can take her own medication Verapamil 180 mg. He ordered that patient can take her own Verapamil from home.
[2023-04-01] MEDS: SODIUM CHLORIDE 0.9% FLUSH 10 ML IV (22:49)
--- NOTE | 2023-04-01 23:55 | PC.NURSE ---
[id number] Dr. Robertson ordered to rechecked CBG in 4 hrs. & follow sliding scale.Will recheck @ [id number] implement orders & monitor.
[2023-04-02] MEDS: OXYCODONE IR 10 MG TABLET PO ×4 (00:38→13:31)
[2023-04-02 00:40] VITALS: BP 109/65; PULSE 74; RESP 16; TEMP 36.6; O2SAT 94
[2023-04-02] MEDS: ACETAMINOPHEN 325 MG TABLET 650 MG PO ×2 (05:33→12:47)
--- NOTE | 2023-04-02 06:28 | PC.NURSE ---
0610 Dahl Catheter discontinue & tolerated procedure. Requesting anti anxiety medication Lorazepam 2 mg. PO now.
[2023-04-02 06:31] VITALS: BP 104/59; PULSE 67; RESP 16; TEMP 37; O2SAT 95
[2023-04-02] MEDS: LORazepam 1 MG TABLET 2 MG PO ×2 (06:35→12:41)
[2023-04-02 08:00] VITALS: BP 98/61; PULSE 65; RESP 19; TEMP 36.4; O2SAT 98
--- NOTE | 2023-04-02 09:30 | P.PN_ITS ---
Subjective Subjective Date Patient Seen: 04/01/23 Time Patient Seen: 08:30 Interval history: Overnight the patient has had difficulty with pain which has been only poorly controlled, requiring morphine IV every 2 hours. Patient has not been ambulatory. She is not having any nausea and vomiting however. No vaginal bleeding noted and catheter remains in place. Patient states that the left- sided pain she had been experiencing has resolved and she can now ?feel her whole left leg for the 1st time in over a year. Exam Vital Signs (past 8 hours): - 04/02/23 06:31 04/02/23 08:00 Temperature 98.6 F 97.6 F Pulse Rate 67 65 Respiratory Rate 16 19 Blood Pressure 104/59 L 98/61 Pulse Oximetry 95 98 Oxygen Flow Rate 0 Oxygen Delivery Method Room Air Oxygen Flow Rate 0 Const General: cooperative and comfortable Nutritional Appearance: average body habitus Orientation: alert and oriented x3 HENMT Head: normal to inspection, atraumatic and abrasion Ears: hearing grossly normal bilaterally Face and sinus: face symmetric Eyes General: appearance normal, both eyes and all related structures Conjunctivae: conjunctivae normal Sclera: sclerae normal EOM: EOM intact bilaterally Neck Neck: normal visual inspection Resp Effort & Inspection: normal respiratory effort and able to speak in complete sentences Auscultation: clear to auscultation bilaterally Cardio Rate: regular rate Rhythm: regular rhythm Heart Sounds: S1 normal, S2 normal and no murmurs GI Inspection: normal to inspection and incision (Surgical dressings clean and dry) Palpation: soft, no hepatosplenomegaly and tender (Moderate, diffuse postsurgical tenderness) Auscultation: hypoactive bowel sounds External Female Exam: other (No significant bleeding noted) Extrem General: no calf tenderness Psych Appearance: grossly normal Mental Status: mental status grossly normal Speech and Movement: speech and movement normal Mood: congruent mood Affect: normal affect Attitude: cooperative Thought Process: normal Thought Content: normal Judgment: judgment good Objective Labs 04/01/23 05:15 [facility] Medical History (Updated 03/21/23 @ 10:26 by Isi Marlow RN) Severe anxiety History of COVID-19 (2020) Anesthesia complication Cerebral vasoconstriction syndrome Cauda equina compression Wears glasses Migraines Chronic back pain Chicken pox PCOS (polycystic ovarian syndrome) Painful menstrual periods Irregular menstrual cycle (~1990) Infertility (~1997) Heavy menstrual period History of urinary incontinence Fecal incontinence Hyperlipidemia Hypertension Headache Cervical disc disorder at C4-C5 level with radiculopathy Numbness of right hand Osteoarthritis Right shoulder pain MRSA (methicillin resistant Staphylococcus aureus) (~2008) Hirsutism PCOS (polycystic ovarian syndrome) 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 Depression (~1999) Migraine with aura Anxiety Surgical History (Updated 03/21/23 @ 09:58 by Isi Marlow RN) History of arthroscopy of right shoulder (11/28/17) History of surgery (~2019) History of repair of rotator cuff (~2014) Anesthesia Cauda equina compression (~2021) Status post knee surgery Status post breast reduction (~2001) Social History household members: spouse Smoking Status: Never smoker alcohol intake: former Assessment & Plan Post-op Postoperative Procedures: Procedures Operation Date: 03/31/23 09:45 Actual Procedure Side Surgeon p Total Laparoscopic Hysterectomy with left salpingo-oophorectomy and right salpingectomy Toribio Lawson MD Postoperative day: 1 Postoperative status narrative: Patient is longstanding use of p.o. opioids or is complicating pain management postop with resulting slow return of bowel and bladder function and limited ambulation. We are able to address those issues today, discharge later today would be possible but if not patient will need to stay overnight so as to get better control of her pain levels, and support her in return of bowel and bladder function. Postoperative plan: see orders, advance diet and voiding trials Time Spent With Patient Time with patient: 15-24 minutes
--- NOTE | 2023-04-02 09:33 | CM.DPC ---
DCP Cont. Reviewed EMR and team rounds for status updates. Pt was found to be up and ambulating w/walker, spouse standing by and assisting. Plan is for owens to be removed this am, followed by pt d/c home. Spouse will transport. No further needs indicated for DCP at this time, but will continue to monitor until she leaves.
--- NOTE | 2023-04-02 09:38 | P.DS_ITS ---
History of Present Illness History of Present Illness Date Patient Seen: 04/02/23 Chief complaint: Menometrorrhagia, Adenomyosis, Left ovarian cyst Discharge Providers Provider Date of admission: 04/30/2023 Discharge Date: 04/02/23 Primary care physician: SUNSHINE Kwan Consults: 03/21/23 10:43 Consult to Anesthesiology Routine Comment: Consulting Provider: Anesthesiologist Reason for consultation: Pt requests a call from Anesthesia prior to dos Discharge provider: Toribio Lawson MD Summary Hospital Course Discharge Diagnosis: Menometrorrhagia Adenomyosis (presumptive diagnosis) Left-sided chronic pelvic pain Left ovarian cyst Chronic opioid use s/p total laparoscopic hysterectomy with left salpingo oophorectomy and right salpingectomy Hospital Course: Nelson was admitted on 03/31/2023 and on that date underwent an uneventful total laparoscopic hysterectomy with left salpingo-oophorectomy and right salpingectomy. Full details of the procedure well summarized on my operative note of that date. Following surgery the patient has done extremely well with prompt return of bowel and bladder function, she is ambulating independently, tolerating regular diet, and her pain is well controlled with oral pain medications. She will be discharged at this time to home in an afebrile normotensive condition after counseling regarding precautionary symptoms, limitations of activity, medications, and plans for follow-up which will be in 2 weeks or as needed. Medications at discharge will include resumption of all preadmission medications and Cipro 500 mg p.o. b.i.d. x5 days for UTI prophylaxis following catheterization. Status at Discharge Cognitive/behavioral status at discharge: oriented Functional status at discharge: independent ambulation Overall status at discharge: patient is progressing back to baseline Time Spent with Patient Time spent: Less than 30 minutes Exam Vital Signs (past 8 hours): - 04/02/23 06:31 04/02/23 08:00 Temperature 98.6 F 97.6 F Pulse Rate 67 65 Respiratory Rate 16 19 Blood Pressure 104/59 L 98/61 Pulse Oximetry 95 98 Oxygen Flow Rate 0 Oxygen Delivery Method Room Air Oxygen Flow Rate 0 Const General: cooperative and comfortable Nutritional Appearance: average body habitus Orientation: alert and oriented x3 HENMT Head: normal to inspection, atraumatic and abrasion Ears: hearing grossly normal bilaterally Face and sinus: face symmetric Eyes General: appearance normal, both eyes and all related structures Conjunctivae: conjunctivae normal Sclera: sclerae normal EOM: EOM intact bilaterally Neck Neck: normal visual inspection Resp Effort & Inspection: normal respiratory effort and able to speak in complete sentences Auscultation: clear to auscultation bilaterally Cardio Rate: regular rate Rhythm: regular rhythm Heart Sounds: S1 normal, S2 normal and no murmurs GI Inspection: normal to inspection and incision (Surgical dressings removed, incisions clean and dry) Palpation: soft, no hepatosplenomegaly and tender (Mild, diffuse postsurgical tenderness) Auscultation: hypoactive bowel sounds and other (BS improved since 04/01/2023) External Female Exam: other (No significant bleeding noted) Extrem General: no calf tenderness Psych Appearance: grossly normal Mental Status: mental status grossly normal Speech and Movement: speech and movement normal Mood: congruent mood Affect: normal affect Attitude: cooperative Thought Process: normal Thought Content: normal Judgment: judgment good Objective Labs 04/01/23 05:15 [facility] Medical History (Updated 05/18/23 @ 09:32 by Toribio Lawson MD) Severe anxiety History of COVID-19 (2020) Anesthesia complication Cerebral vasoconstriction syndrome Cauda equina compression Wears glasses Migraines Chronic back pain Chicken pox PCOS (polycystic ovarian syndrome) Painful menstrual periods Irregular menstrual cycle (~1990) Infertility (~1997) Heavy menstrual period History of urinary incontinence Fecal incontinence Hyperlipidemia Hypertension Headache Cervical disc disorder at C4-C5 level with radiculopathy Numbness of right hand Osteoarthritis Right shoulder pain MRSA (methicillin resistant Staphylococcus aureus) (~2008) Hirsutism PCOS (polycystic ovarian syndrome) 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 Depression (~1999) Migraine with aura Anxiety Surgical History (Updated 03/21/23 @ 09:58 by Isi Marlow RN) History of arthroscopy of right shoulder (11/28/17) History of surgery (~2019) History of repair of rotator cuff (~2014) Anesthesia Cauda equina compression (~2021) Status post knee surgery Status post breast reduction (~2001) Social History household members: spouse Smoking Status: Never smoker alcohol intake: former Discharge Assessment & Plan Assessment and Plan Assessment: Menometrorrhagia Adenomyosis (presumptive diagnosis) Left-sided chronic pelvic pain Left ovarian cyst Chronic opioid use s/p total laparoscopic hysterectomy with left salpingo-oophorectomy and right salpingectomy Plan of Treatment: Routine postoperative care. See discharge instructions. Discharge Plan Discharge Plan Patient Disposition: Home Provider Discharge Comment: Please review the written instructions you received when you were discharged from hospital. Your follow-up appointment will be scheduled 2 weeks after your surgery and I look forward to seeing you then. If however in the meanwhile you have any issues, concerns, or questions, please contact me either through the office phone at [phone], or via the patient portal. Discharge orders & Medications Discharge Orders: Discharge (Order); Ordered 04/02/23 Ordered By: Toribio Lawson Prescriptions: New ondansetron 8 mg tablet,disintegrating 8 mg PO Q8H PRN (Reason: nausea and vomiting) Qty: 10 0RF Continued hydrocodone-acetaminophen 10-325 mg tablet 1 tab PO Q6H PRN (Reason: Pain (Scale Score 1-3)) Mounjaro 12.5 mg/0.5 mL pen injector 12.5 mg SUBCUT QWEEK fluoxetine 40 mg Capsule 60 mg PO DAILY epinephrine [EpiPen] 0.3 mg/0.3 mL Auto-Injector 0.3 mg IM PRN PRN (Reason: Anaphylaxis) prazosin 1 mg Capsule 1 mg PO QPM verapamil 180 mg Tablet Extended Release 180 mg PO BEDTIME clonazepam 0.5 mg Tablet 1 mg PO BID No Action estradiol [Vivelle-Dot] 0.05 mg/24 hr patch semiweekly 1 patch transdermal 2XW Qty: 8 12RF Rx Instructions: apply 1 patch for 3 days alternating with 1 patch for 4 days each week for 3 wks per 4-wk cycle oxycodone 5 mg tablet 5 mg PO Q8H PRN (Reason: pain) Qty: 50 0RF Medication counseling provided by Pharmacist: Yes Follow up/Referrals: Jonh Kendall ARNP [Primary Care Provider] - Toribio Lawson MD [Physician] - Diet/Activity/Treatments Diet: Diet as Tolerated Activity: As tolerated Other treatments: Eaau-pyg-[id number] ibuprofen and/or Tylenol may be used for additional pain relief. Jusz-rfl-pchvgej stool softeners and/or MiraLax may be used as needed for constipation. Skin/Wound/Dressing Care Dressing: Dressings should be removed on the morning of 04/02/2023 Visit Report/Discharge Packet Instructions: DI for Hysterectomy, DI for Laparoscopy, DI for Prescription Opioid Use Stand Alone Forms: Surgery Discharge Print Language: Hong [place]er Discharge Data Primary Care Provider: Jonh Kendall Attending Provider: Toribio Lawson
[2023-04-02] MEDS: ONDANSETRON 4 MG/2 ML INJ IV ×2 (09:49→12:47)
[2023-04-02] MEDS: FLUoxetine 20 MG CAPSULE 60 MG PO (09:50)
[2023-04-02] MEDS: DOCUSATE 100 MG CAPSULE 200 MG PO (09:50)
[2023-04-02] MEDS: SODIUM CHLORIDE 0.9% FLUSH 10 ML IV (10:04)
[2023-04-02] MEDS: BISACODYL 10 MG SUPP PR (10:04)
--- NOTE | 2023-04-21 03:18 | PC.NURSE ---
Chart accessed for late entry in [facility]
== END 2023-04-02 13:53 | disposition home or self-care (01) ==
LOC: OR 08:36 → AC 08:36
PROVIDERS: Family Provider Obstetrics & Gynecology; PCP Registered Nurse; Referring Provider Obstetrics & Gynecology; Visit Provider Obstetrics & Gynecology
PROC: 0UT94ZZ Resection of Uterus, Percutaneous Endoscopic Approach (ICD-10-PCS; CPT 58571; principal; 2023-03-31 09:45)
DX: N92.1 Excessive and frequent menstruation with irregular cycle (principal); N80.03 Adenomyosis of the uterus; N83.292 Other ovarian cyst, left side; N70.11 Chronic salpingitis
CPT/HCPCS: 58571; 36415; 85025; J0330; J0690; J1100; J1453; J2250; J2270; J2405; J2704; J2795; J3010

== ENCOUNTER → 2023-04-14 15:15 | Outpatient (CLI) | payer OTHER, SELFPAY ==
[2023-03-31 13:56] VITALS: BMI 29.1
[2023-04-14 16:43] LABS: Follicle Stimulating Hormone 43.9 mIU/mL
[2023-04-14 16:59] LABS: Estradiol, Total 40.7 pg/mL
== END ==
PROVIDERS: Family Provider Obstetrics & Gynecology; PCP Registered Nurse; Referring Provider Obstetrics & Gynecology; Visit Provider Obstetrics & Gynecology
DX: N95.1 Menopausal and female climacteric states (principal)
CPT/HCPCS: 36415; 82670; 83001

== ENCOUNTER 2023-05-02 04:00 | Emergency (ER) | payer OTHER, SELFPAY ==
[2023-03-31 13:56] VITALS: BMI 29.1
[2023-05-02] VITALS (8 sets, daily range): BP systolic 114–157; BP diastolic 57–84; PULSE 72–93; RESP 15–21; TEMP 37.1; O2SAT 96–98; BMI 28.3
--- NOTE | 2023-05-02 04:12 | ED.GENADULT ---
HPI - General Adult General Chief complaint: Headache Stated complaint: palpatations, headache, Time Seen by Provider: 05/02/23 04:11 History of Present Illness HPI narrative: 47-year-old woman with recent hysterectomy, history of vasogenic headache presents complaining that something is falling out of her vagina, significant palpitations all of which is causing increased anxiety that set off a vasogenic headache. Apparently she had an episode where she stood up and had some mild urinary incontinence which caused her even more concern. She does not describe fevers, cough, chills. She has not had any significant vaginal discharge. There is no nausea vomiting or diarrhea. Related Data Home Medications Medication Instructions Recorded Confirmed epinephrine 0.3 mg/0.3 mL 0.3 mg IM PRN PRN Anaphylaxis 11/14/17 04/14/23 injection, auto-injector (EpiPen) fluoxetine 40 mg capsule 60 mg PO DAILY 11/14/17 04/14/23 clonazepam 0.5 mg tablet 1 mg PO BID 03/21/23 04/14/23 prazosin 1 mg capsule 1 mg PO QPM 03/21/23 04/14/23 verapamil 180 mg tablet,extended 180 mg PO BEDTIME 03/21/23 04/14/23 release hydrocodone 10 mg-acetaminophen 1 tab PO Q6H PRN Pain (Scale Score 03/23/23 04/14/23 325 mg tablet 1-3) tirzepatide 12.5 mg/0.5 mL 12.5 mg SUBCUT QWEEK 03/23/23 04/14/23 subcutaneous pen injector (Andreaunludmila) Previous Rx's Medication Instructions Recorded ondansetron 8 mg disintegrating 8 mg PO Q8H PRN nausea and 04/02/23 tablet vomiting #10 tabs oxycodone 5 mg tablet 5 mg PO Q4-6H PRN pain #30 tabs 04/07/23 oxycodone 5 mg tablet 5 mg PO Q8H PRN pain #50 tabs 04/14/23 estradiol 0.05 mg/24 hr semiweekly 1 patch transdermal 2XW #8 ea 04/15/23 transdermal patch (Vivelle-Dot) Allergies Allergy/AdvReac Type Severity Reaction Status Date / Time amoxicillin [AMOXICILLIN] Allergy Severe HIVES Verified 04/14/23 14:50 NSAIDS (Non-Steroidal Allergy Severe cerebral Verified 04/14/23 14:50 Anti-Inflamma vasoconstrictive syndrome rizatriptan [From Maxalt] Allergy Severe cerebral Verified 04/14/23 14:50 vasoconstrive syndrome Sulfa (Sulfonamide Allergy Severe HIVES Verified 04/14/23 14:50 Antibiotics) [SULFA (SULFONAMIDE ANTIBIOTICS)] tree nut Allergy Severe Anaphylaxis Verified 04/14/23 14:50 walnut Allergy Severe Anaphylaxis Verified 04/14/23 14:50 hydromorphone [From Dilaudid] AdvReac Severe Vomiting Verified 04/14/23 14:50 vasoconstrictive meds Allergy Severe Pt hx of Uncoded 04/14/23 14:50 Cerebral Vasoconstrictive Syndrome Review of Systems Review of Systems Narrative: Pertinent positive and negative findings as per HPI Patient History Medical History (Updated 05/02/23 @ 04:47 by Emmanuelle Vallejo MD) Severe anxiety History of COVID-19 (2020) Anesthesia complication Cerebral vasoconstriction syndrome Cauda equina compression Wears glasses Migraines Chronic back pain Chicken pox PCOS (polycystic ovarian syndrome) Painful menstrual periods Irregular menstrual cycle (~1990) Infertility (~1997) Heavy menstrual period History of urinary incontinence Fecal incontinence Hyperlipidemia Hypertension Headache Cervical disc disorder at C4-C5 level with radiculopathy Numbness of right hand Osteoarthritis Right shoulder pain MRSA (methicillin resistant Staphylococcus aureus) (~2008) Hirsutism PCOS (polycystic ovarian syndrome) 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 Depression (~1999) Migraine with aura Anxiety Surgical History (Updated 03/21/23 @ 09:58 by Isi Marlow RN) History of arthroscopy of right shoulder (11/28/17) History of surgery (~2019) History of repair of rotator cuff (~2014) Anesthesia Cauda equina compression (~2021) Status post knee surgery Status post breast reduction (~2001) Social History household members: spouse Smoking Status: Never smoker alcohol intake: former Smoking Status: Never smoker alcohol intake frequency: other Substance Use Type: prescription drug Exam Narrative Exam Narrative: General: Healthy appearing woman significantly anxious and frightened, able to give a coherent history HEENT: Moist mucous membranes, normal sclera with reactive pupils, Neck: No nuchal rigidity, no cervical adenopathy Respiratory: Lungs are clear to auscultation, no wheezing no rales no rhonchi. Full and symmetrical air movement Cardiac: Regular rate and rhythm with occasional irregular beat. No murmurs appreciated Abdomen: Soft, nontender, good bowel tones, no flank pain Vaginal: External genitals are unremarkable. Vaginal introitus is reassuring. Gentle 2 finger bimanual exam shows no abnormalities within the vagina, no significant cystocele or rectocele and vaginal cuff seems well healed and well supported. There is no significant swelling or abnormality around the urethra. No vaginal discharge Skin: Warm and dry, no rashes Neurologic: Grossly neurologically intact with no obvious asymmetries or abnormalities Extremities: No trauma, well perfused Psych: Tearful, anxious Medical Decision Making MDM Narrative Medical decision making narrative: CC: Headache and palpitations and fear that something is ?in her vagina? 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 Vaginal exam is reassuringly normal with no urethral abnormalities appreciated Lab Test results independently reviewed as above. Pertinent findings: CBC is unremarkable Metabolic panel is reassuring Urinalysis has trace leukocyte esterase but no other abnormalities, this point I do not suspect urinary tract infection Independently reviewed EKG: EKG shows sinus rhythm at a rate of 72, normal intervals, normal axis Telemetry observation indicates occasional PACs with sinus arrhythmia but no pathologic rhythms Treatments: For her headache she is given a L of fluid, Zofran and diazepam. The diazepam definitely helps with the anxiety over the sensation that there is ?something in her vagina? as well as the anxiety over the palpitations. After the diltiazem anxiety level overall dramatically decreases and sinus arrhythmia is almost completely alleviated. Headache unfortunately continues. She is given a mg of hydromorphone. Discussion: On re-evaluation patient is feeling somewhat better. She is reassured regarding the occasional palpitation that this is not a life-threatening rhythm. Reassurance regarding the health structure and physical aspects of her vagina as well as absence of any significant pathology. Headache is better after the Dilaudid. At this point questions are answered, she is feeling much more relaxed, believe she can get to sleep and she is safe for discharge home Discharge Plan Departure Patient Disposition: Home Clinical Impression: Anxiety, Heart palpitations Headache Qualifiers: Headache type: other vascular headache Qualified Code(s): G44.1 - Vascular headache, not elsewhere classified Instructions: DI for Headache Activity Restrictions/Additional Instructions: Thank you for coming into The heart palpitations that you are noticing are completely benign and absolutely present. You were having an occasional early beat and minor sinus arrhythmia but nothing that is pathologic orbital progress to anything that is life-threatening Your blood work is entirely reassuring I do not see anything abnormal in your vagina and your bladder rectum and the upper cuff of your vagina all feel well supported and entirely appropriate postop. There does not appear to be anything abnormal with your urethra. With your vasospastic headache, you are given fluids and diazepam. This was followed with Dilaudid. At this point you are safe for discharge home. If you find that you have new or unusual symptoms returning please feel free to return to the emergency department Prescriptions: No Action oxycodone 5 mg tablet 5 mg PO Q4-6H PRN (Reason: pain) Qty: 30 0RF estradiol [Vivelle-Dot] 0.05 mg/24 hr patch semiweekly 1 patch transdermal 2XW Qty: 8 12RF Rx Instructions: apply 1 patch for 3 days alternating with 1 patch for 4 days each week for 3 wks per 4-wk cycle oxycodone 5 mg tablet 5 mg PO Q8H PRN (Reason: pain) Qty: 50 0RF hydrocodone-acetaminophen 10-325 mg tablet 1 tab PO Q6H PRN (Reason: Pain (Scale Score 1-3)) Mounjaro 12.5 mg/0.5 mL pen injector 12.5 mg SUBCUT QWEEK fluoxetine 40 mg Capsule 60 mg PO DAILY epinephrine [EpiPen] 0.3 mg/0.3 mL Auto-Injector 0.3 mg IM PRN PRN (Reason: Anaphylaxis) prazosin 1 mg Capsule 1 mg PO QPM verapamil 180 mg Tablet Extended Release 180 mg PO BEDTIME clonazepam 0.5 mg Tablet 1 mg PO BID ondansetron 8 mg tablet,disintegrating 8 mg PO Q8H PRN (Reason: nausea and vomiting) Qty: 10 0RF Referrals: Jonh Kendall ARNP [Primary Care Provider] - Stand Alone Forms: Patient Portal/API
[2023-05-02] MEDS: ONDANSETRON 4 MG/2 ML INJ IV (04:50)
[2023-05-02] MEDS: SODIUM CHLORIDE 0.9% 1,000 ML 1000 ML IV (04:50)
[2023-05-02] MEDS: diazePAM 10 MG/2 ML SYRINGE 5 MG IV (04:50)
[2023-05-02 05:42] LABS: Add Manual Diff / Slide Review NO; Basophils Absolute Auto 0 /uL (0-100); Basophils Percent Auto 0.6 % (0-2); Eosinophils Absolute Auto 300 /uL (0-450); Eosinophils Percent Auto 4.9 % (2-4); Hematocrit 40.1 % (36-46); Hemoglobin 13.7 g/dL (12.0-16.0); Lymphocytes Absolute Auto 2700 /uL (1100-4500); Lymphocytes Percent Auto 42.5 % (25-40); Mean Corpuscular HGB Conc 34.1 % (30-36); Mean Corpuscular Hemoglobin 29.9 PG (26-34); Mean Corpuscular Volume 87.6 fL (80-100); Monocytes Absolute Auto 600 /uL (0-900); Monocytes Percent Auto 9.2 % (3-14); Neutrophils Absolute Auto 2700 /uL (1500-7000); Neutrophils Percent Auto 42.8 % (50-75); Platelet Count 194 X10^3/uL (150-400); Red Blood Cell Count 4.58 X10^6/uL (4.0-5.2); Red Cell Distribution Width 13.3 % (11.6-14.8); White Blood Cell Count 6.4 X10^3/uL (4.5-11.0)
[2023-05-02 05:43] LABS: Appearance Urine UA CLEAR; Bilirubin Urine UA NEGATIVE (NEGATIVE); Color Urine UA YELLOW; Glucose Urine UA NEGATIVE (Negative); Ketones Urine UA NEGATIVE (NEGATIVE); Leukocyte Esterase Urine UA TRACE (NEGATIVE); Nitrite Urine UA NEGATIVE (Negative); Occult Blood Urine UA TRACE-INTACT (Negative); Protein Urine UA NEGATIVE (Negative); Urobilinogen Urine UA 0.2 E.U./dL (0.2)
[2023-05-02 05:48] LABS: Alanine Aminotransferase 23 IU/L (<35); Albumin Globulin Ratio 1.4 (1.0-2.8); Alkaline Phosphatase 35 U/L (38-126); Aspartate Aminotransferase 42 IU/L (14-36); BUN Creatinine Ratio 24.1 (6-22); Bilirubin Total 0.6 mg/dL (0.2-1.3); Blood Urea Nitrogen 13 mg/dL (7-17); Calcium 8.8 mg/dL (8.4-10.2); Carbon Dioxide 28 mmol/L (22-32); Chloride 104 mmol/L (98-107); Estimated Glomerular Filt Rate > 60 mL/min (>60); Globulin 2.9 g/dL (1.7-4.1); Glucose 89 mg/dL (70-100); Sodium 135 mmol/L (137-145); Total Protein 6.9 g/dL (6.3-8.2)
[2023-05-02 05:51] LABS: pH Urine UA 7.5 (4.5-8.0)
[2023-05-02 05:52] LABS: Bacteria Urine None Seen; Culture Indicated Urine Specimen Cultured; RBC Urine None Seen (0-5/HPF); Squamous Epithelial Cell Urine 1-5 /HPF (0-5/HPF); WBC Urine None Seen (0-5/HPF)
[2023-05-02 05:54] LABS: HEMOLYSIS 60 (0-50); Potassium 4.6 mmol/L (3.4-5.1)
[2023-05-02] MEDS: HYDROMORPHONE 1 MG INJ IV (05:58)
== END 2023-05-02 06:33 | disposition home or self-care (01) ==
PROVIDERS: Emergency Provider Emergency Medicine; Family Provider Obstetrics & Gynecology; PCP Registered Nurse
DX: R00.2 Palpitations (principal); F41.9 Anxiety disorder, unspecified; G44.1 Vascular headache, not elsewhere classified
CPT/HCPCS: 36415; 80053; 81001; 85025; 87086; 93005; 96374; 96375; 99284; J1170; J2405; J3360

== ENCOUNTER 2024-01-31 20:02 | Emergency (ER) | payer OTHER, SELFPAY ==
[2023-03-31 13:56] VITALS: BMI 29.1
[2024-01-31] VITALS (7 sets, daily range): BP systolic 111–159; BP diastolic 60–90; PULSE 80–102; RESP 12–18; TEMP 37.2; O2SAT 95–100; BMI 28.3
--- NOTE | 2024-01-31 20:29 | PC.NURSE ---
pt states she has a sore just above the bra line on the right breast, her pcp swabbed the area and it returned with a MRSA dx, pt states she is unsure how the areas started, she is scheduled for a mammogram and MRI, but she has been feeling nauseated with vomiting and not feeling well, also c/o dizziness, she called her pcp who told her to come to the ER
--- NOTE | 2024-01-31 20:37 | ED_ITS ---
HPI - General Adult General Chief complaint: Syncope Stated complaint: MRSA infection, sent by dr Mancia Seen by Provider: 01/31/24 20:11 Source: patient and family Mode of arrival: Ambulatory History of Present Illness HPI narrative: 48-year-old female with history of cerebrovascular constriction presents for malaise, reported syncopal episode, headache. Patient states that she has a wound on her left breast in his being treated for MRSA. She called her doctor to discuss her new symptoms and she was told to come to the ER to evaluate for possible sepsis. Patient has an appointment tomorrow for a breast MRI and mammogram per her PCP. Related Data Home Medications Medication Instructions Recorded Confirmed epinephrine 0.3 mg/0.3 mL 0.3 mg IM PRN PRN Anaphylaxis 11/14/17 05/18/23 injection, auto-injector (EpiPen) fluoxetine 40 mg capsule 60 mg PO DAILY 11/14/17 05/18/23 clonazepam 0.5 mg tablet 1 mg PO BID 03/21/23 05/18/23 prazosin 1 mg capsule 1 mg PO QPM 03/21/23 05/18/23 verapamil 180 mg tablet,extended 180 mg PO BEDTIME 03/21/23 05/18/23 release hydrocodone 10 mg-acetaminophen 1 tab PO Q6H PRN Pain (Scale Score 03/23/23 05/18/23 325 mg tablet 1-3) tirzepatide 12.5 mg/0.5 mL 12.5 mg SUBCUT QWEEK 03/23/23 05/18/23 subcutaneous pen injector (Andreaunludmila) Previous Rx's Medication Instructions Recorded ondansetron 8 mg disintegrating 8 mg PO Q8H PRN nausea and 04/02/23 tablet vomiting #10 tabs estradiol 0.05 mg/24 hr semiweekly 1 patch transdermal 2XW #8 ea 04/15/23 transdermal patch (Vivelle-Dot) oxycodone 5 mg tablet 5 mg PO Q8H PRN pain #50 tabs 05/18/23 Allergies Allergy/AdvReac Type Severity Reaction Status Date / Time amoxicillin [AMOXICILLIN] Allergy Severe HIVES Verified 05/18/23 09:03 NSAIDS (Non-Steroidal Allergy Severe cerebral Verified 05/18/23 09:03 Anti-Inflamma vasoconstrictive syndrome rizatriptan [From Maxalt] Allergy Severe cerebral Verified 05/18/23 09:03 vasoconstrive syndrome Sulfa (Sulfonamide Allergy Severe HIVES Verified 05/18/23 09:03 Antibiotics) [SULFA (SULFONAMIDE ANTIBIOTICS)] tree nut Allergy Severe Anaphylaxis Verified 05/18/23 09:03 walnut Allergy Severe Anaphylaxis Verified 05/18/23 09:03 hydromorphone [From Dilaudid] AdvReac Severe Vomiting Verified 05/18/23 09:03 vasoconstrictive meds Allergy Severe Pt hx of Uncoded 05/18/23 09:03 Cerebral Vasoconstrictive Syndrome Patient History Medical History Severe anxiety History of COVID-19 (2020) Anesthesia complication Cerebral vasoconstriction syndrome Cauda equina compression Wears glasses Migraines Chronic back pain Chicken pox PCOS (polycystic ovarian syndrome) Painful menstrual periods Irregular menstrual cycle (~1990) Infertility (~1997) Heavy menstrual period History of urinary incontinence Fecal incontinence Hyperlipidemia Hypertension Headache Cervical disc disorder at C4-C5 level with radiculopathy Numbness of right hand Osteoarthritis Right shoulder pain MRSA (methicillin resistant Staphylococcus aureus) (~2008) Hirsutism PCOS (polycystic ovarian syndrome) 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 Depression (~1999) Migraine with aura Anxiety Surgical History History of arthroscopy of right shoulder (11/28/17) History of surgery (~2019) History of repair of rotator cuff (~2014) Anesthesia Cauda equina compression (~2021) Status post knee surgery Status post breast reduction (~2001) Social History household members: spouse Smoking Status: Never smoker alcohol intake: former Smoking Status: Never smoker alcohol intake frequency: other Substance Use Type: does not use Exam Initial Vital Signs Initial Vital Signs: Vital Signs Temperature 98.9 F 01/31/24 20:05 Pulse Rate 102 H 01/31/24 20:05 Respiratory Rate 18 01/31/24 20:05 Blood Pressure 159/82 H 01/31/24 20:05 Pulse Oximetry 99 01/31/24 20:05 Oxygen Delivery Method Room Air 01/31/24 20:05 Const: Awake, alert, no acute distress, nontoxic appearing Cardiac: regular rate, regular rhythm RESP: unlabored, clear bilaterally, no wheezing Breast: zoology technical officer present, Small 1x2cm scabbed area on underside of L breast. No fluctuance, no significant surrounding erythema GI: Soft, nontender, nondistended, no rebound, no guarding MSK: Atraumatic, full range of motion, pulses equal Skin: Warm, Dry, intact, no rashes Neuro: AO x3, CN II-XII grossly intact, moves all extremities Course Orders Ordered: ED Orders 01/31/24 20:18 Blood Culture Stat 01/31/24 20:50 CBC Auto Diff [Complete Blood Count AUTO DIFF] Stat CMP [Comprehensive Metabolic Panel] Stat CRP [C-Reactive Protein Quant] Stat Erythrocyte Sedimentation Rate Stat Lactate (Lactic Acid) Stat Discontinued Medications Diphenhydramine HCl (Diphenhydramine 50 Mg/Ml Vial) 50 mg IV NOW ONE Stop: 01/31/24 21:03 Last Admin: 01/31/24 21:18 Dose: Not Given Documented By: NERY Sodium Chloride (Normal Saline 0.9%) 1,000 mls @ 1,000 mls/hr IV BOLUS ONE Stop: 01/31/24 21:17 Last Infusion: 01/31/24 22:51 Dose: Infused Documented By: Admin: 01/31/24 20:56 Dose: 1,000 mls/hr Documented By: NERY Acetaminophen (Ofirmev) 1,000 mg in 100 mls @ 400 mls/hr IV NOW ONE Stop: 01/31/24 21:16 Last Infusion: 01/31/24 21:34 Dose: Infused Documented By: Admin: 01/31/24 21:13 Dose: 400 mls/hr Documented By: NERY Metoclopramide HCl (Metoclopramide 10 Mg/2 Ml Inj) 10 mg IV NOW ONE Stop: 01/31/24 21:03 Last Admin: 01/31/24 21:12 Dose: 10 mg Documented By: NERY Vital Signs Vital signs: Vital Signs - 8 hr 01/31/24 20:05 01/31/24 20:18 01/31/24 20:30 Temperature 98.9 F Pulse Rate 102 H 92 H 85 Respiratory Rate 18 13 12 Blood Pressure 159/82 H Pulse Oximetry 99 95 100 Oxygen Delivery Method Room Air Room Air 01/31/24 20:30 01/31/24 21:00 01/31/24 21:00 Temperature Pulse Rate 86 Respiratory Rate 15 Blood Pressure 123/78 131/90 Pulse Oximetry 99 Oxygen Delivery Method 01/31/24 21:30 01/31/24 21:30 01/31/24 22:00 Temperature Pulse Rate 86 Respiratory Rate 18 Blood Pressure 119/71 119/64 Pulse Oximetry 99 Oxygen Delivery Method Room Air 01/31/24 22:00 01/31/24 22:30 01/31/24 22:30 Temperature Pulse Rate 80 80 Respiratory Rate 18 15 Blood Pressure 111/60 Pulse Oximetry 98 98 Oxygen Delivery Method Medical Decision Making Lab Data 01/31/24 20:50 01/31/24 20:50 Labs: Lab Results 01/31/24 Range/Units 20:50 WBC 7.7 (4.5-11.0) X10^3/uL RBC 4.81 (4.0-5.2) X10^6/uL Hgb 14.9 (12.0-16.0) g/dL Hct 42.6 (36-46) % MCV 88.6 (80-100) fL MCH 30.9 (26-34) PG MCHC 34.9 (30-36) % RDW 13.6 (11.6-14.8) % Plt Count 284 (150-400) X10^3/uL Neut % (Auto) 54.8 (50-75) % Lymph % (Auto) 33.6 (25-40) % [place] % (Auto) 7.8 (3-14) % Eos % (Auto) 3.0 (2-4) % Baso % (Auto) 0.8 (0-2) % Neut # (Auto) 4200 (6559-9092) /uL Lymph # (Auto) 2600 (9286-6580) /uL [place] # (Auto) 600 (0-900) /uL Eos # (Auto) 200 (0-450) /uL Baso # (Auto) 100 (0-100) /uL ESR 13 (0-20) MM/HR Sodium 137 (137-145) mmol/L Potassium 4.2 (3.4-5.1) mmol/L Chloride 106 (98-107) mmol/L Carbon Dioxide 23 (22-32) mmol/L BUN 12 (7-17) mg/dL Creatinine 0.74 (0.52-1.04) mg/dL Estimated GFR > 60 (>60) mL/min BUN/Creatinine Ratio 16.2 (6-22) Glucose 92 (70-100) mg/dL Lactate 1.2 (0.7-2.1) mmol/L Calcium 9.2 (8.4-10.2) mg/dL Total Bilirubin 0.4 (0.2-1.3) mg/dL AST 21 (14-36) IU/L ALT 20 (<35) IU/L Alkaline Phosphatase 48 (38-126) U/L C-Reactive Protein < 0.5 (<1.0) mg/dL Total Protein 7.6 (6.3-8.2) g/dL Albumin 4.4 (3.5-5.0) g/dL Globulin 3.2 (1.7-4.1) g/dL Albumin/Globulin Ratio 1.4 (1.0-2.8) MDM Narrative Medical decision making narrative: Patient with nonspecific symptoms including malaise, nonspecific dizziness, syncopal versus near syncopal episode at home while being treated for MRSA infection. Patient states that she was here to make sure that she does not have sepsis. Vital signs unremarkable, patient afebrile. Wound on underside of left breast actually appears to be healing well. Patient has MRI and mammogram scheduled for tomorrow. Medications for headache administered. Laboratory work reviewed, unremarkable. WBC count 7.7, hemoglobin 14.9, platelets 284, sodium 137, potassium 4.2, creatinine 0.74, lactic acid 1.2, CRP less than 0.5, ESR 13. Based on reassuring exam, vitals, and labs I have very low suspicion for sepsis at this time. Patient already has scheduled follow up with PCP for scans tomorrow. Patient informed of all lab findings. She reports feeling better after headache cocktail administration. Patient counseled to keep her scheduled follow up appointments tomorrow as scheduled. Recommended that patient continue to take her medications as prescribed. Discharge Plan Departure Patient Disposition: Home Clinical Impression: Malaise, Breast infection Instructions: DI for Cellulitis -- Adult Activity Restrictions/Additional Instructions: Today we measured multiple blood markers that could indicate infection including white blood cell count, CRP, ESR, and procalcitonin. All of these blood levels were normal, making sepsis an unlikely diagnosis at this time. Continue to take all of your previously prescribed medication. Follow up as scheduled tomorrow for your additional testing. Prescriptions: No Action estradiol [Vivelle-Dot] 0.05 mg/24 hr patch semiweekly 1 patch transdermal 2XW Qty: 8 12RF Rx Instructions: apply 1 patch for 3 days alternating with 1 patch for 4 days each week for 3 wks per 4-wk cycle hydrocodone-acetaminophen 10-325 mg tablet 1 tab PO Q6H PRN (Reason: Pain (Scale Score 1-3)) Mounjaro 12.5 mg/0.5 mL pen injector 12.5 mg SUBCUT QWEEK oxycodone 5 mg tablet 5 mg PO Q8H PRN (Reason: pain) Qty: 50 0RF fluoxetine 40 mg Capsule 60 mg PO DAILY epinephrine [EpiPen] 0.3 mg/0.3 mL Auto-Injector 0.3 mg IM PRN PRN (Reason: Anaphylaxis) prazosin 1 mg Capsule 1 mg PO QPM verapamil 180 mg Tablet Extended Release 180 mg PO BEDTIME clonazepam 0.5 mg Tablet 1 mg PO BID ondansetron 8 mg tablet,disintegrating 8 mg PO Q8H PRN (Reason: nausea and vomiting) Qty: 10 0RF Referrals: Jonh Kendall ARNP [Primary Care Provider] - Stand Alone Forms: Patient Portal/API
[2024-01-31] MEDS: SODIUM CHLORIDE 0.9% 1,000 ML 1000 ML IV (20:56)
[2024-01-31 21:04] LABS: Add Manual Diff / Slide Review NO; Basophils Absolute Auto 100 /uL (0-100); Basophils Percent Auto 0.8 % (0-2); Eosinophils Absolute Auto 200 /uL (0-450); Hematocrit 42.6 % (36-46); Hemoglobin 14.9 g/dL (12.0-16.0); Lymphocytes Absolute Auto 2600 /uL (1100-4500); Lymphocytes Percent Auto 33.6 % (25-40); Mean Corpuscular HGB Conc 34.9 % (30-36); Mean Corpuscular Hemoglobin 30.9 PG (26-34); Mean Corpuscular Volume 88.6 fL (80-100); Monocytes Absolute Auto 600 /uL (0-900); Monocytes Percent Auto 7.8 % (3-14); Neutrophils Absolute Auto 4200 /uL (1500-7000); Neutrophils Percent Auto 54.8 % (50-75); Platelet Count 284 X10^3/uL (150-400); Red Blood Cell Count 4.81 X10^6/uL (4.0-5.2); Red Cell Distribution Width 13.6 % (11.6-14.8); White Blood Cell Count 7.7 X10^3/uL (4.5-11.0)
[2024-01-31] MEDS: METOCLOPRAMIDE 10 MG/2 ML INJ IV (21:12)
[2024-01-31] MEDS: ACETAMINOPHEN IV 1,000 MG/100 ML VIAL 400 MG IV (21:13)
[2024-01-31 21:16] LABS: Lactate (Lactic Acid) 1.2 mmol/L (0.7-2.1)
[2024-01-31 21:18] LABS: Alanine Aminotransferase 20 IU/L (<35); Albumin 4.4 g/dL (3.5-5.0); Albumin Globulin Ratio 1.4 (1.0-2.8); Alkaline Phosphatase 48 U/L (38-126); Aspartate Aminotransferase 21 IU/L (14-36); BUN Creatinine Ratio 16.2 (6-22); Bilirubin Total 0.4 mg/dL (0.2-1.3); Blood Urea Nitrogen 12 mg/dL (7-17); C-Reactive Protein Quant < 0.5 mg/dL (<1.0); Calcium 9.2 mg/dL (8.4-10.2); Carbon Dioxide 23 mmol/L (22-32); Chloride 106 mmol/L (98-107); Estimated Glomerular Filt Rate > 60 mL/min (>60); Globulin 3.2 g/dL (1.7-4.1); Glucose 92 mg/dL (70-100); HEMOLYSIS < 15 (0-50); Potassium 4.2 mmol/L (3.4-5.1); Sodium 137 mmol/L (137-145); Total Protein 7.6 g/dL (6.3-8.2)
[2024-01-31 21:28] LABS: Erythrocyte Sedimentation Rate 13 MM/HR (0-20)
== END 2024-01-31 22:48 | disposition home or self-care (01) ==
PROVIDERS: Emergency Provider Emergency Medicine; Family Provider Obstetrics & Gynecology; PCP Registered Nurse
DX: N61.0 Mastitis without abscess (principal); R53.81 Other malaise; R51.9 Headache, unspecified
CPT/HCPCS: 36415; 80053; 83605; 85025; 85651; 86140; 87040; 96361; 96365; 96375; 99284; J0136; J1200; J2765